=== PATIENT | male | born 1955 | race Caucasian/White ===

== ENCOUNTER 2021-07-03 10:48 | Outpatient (REF) | payer BC, SELFPAY ==
[2021-07-03 10:57] LABS: MANUAL DIFF FLAG NO
[2021-07-03 11:18] LABS: Basophils Percent Auto 0.8 % (0-2); Eosinophils Absolute Auto 0.1 X10*3/uL (0.0-0.4); Eosinophils Percent Auto 1.9 % (0-4); Hematocrit 40.1 % (42.0-52.0); Hemoglobin 13.6 g/dl (14.0-18.0); Imm Gran Abs Auto 0.01 X10*3/uL (0.00-0.03); Imm Gran Pct Auto 0.2 % (0.0-0.4); Lymphocytes Absolute Auto 1.5 X10*3/uL (1.2-4.9); Lymphocytes Percent Auto 32.3 % (20-40); Mean Corpuscular HGB Conc 33.9 g/dl (31.0-36.0); Mean Corpuscular Hemoglobin 30.2 pg (27.0-33.0); Mean Corpuscular Volume 89.1 fL (80.0-98.0); Mean Platelet Volume 10.6 fL (9.4-12.4); Monocytes Absolute Auto 0.3 X10*3/uL (0.1-1.2); Monocytes Percent Auto 7.2 % (2-11); Neutrophils Absolute Auto 2.7 x10*3/uL (2.0-8.3); Neutrophils Percent Auto 57.6 % (45-73); Platelet Count 156 X10*3/uL (160-400); Red Cell Distribution Width 13.3 % (11.0-16.0); White Blood Count 4.7 X10*3/uL (4.8-10.8)
[2021-07-03 11:24] LABS: Appearance Urine CLEAR; Color Urine YELLOW; Glucose Urine UA NEG (NEG); Leukocyte Esterase Urine NEG (NEG); Nitrite Urine NEG (NEG); Urine Blood NEG (NEG); Urine Ketones NEG (NEG); Urine Protein NEG (NEG-TRACE)
[2021-07-03 11:32] LABS: Estimated Average Glucose 105 mg/dL; Hemoglobin A1c % 5.3 %
[2021-07-03 11:41] LABS: Alanine Aminotransferase 71 U/L (0-40); Albumin Level 4.2 g/dL (3.5-5.0); Alkaline Phosphatase 69 U/L (39-117); Anion Gap 11 (12-20); Aspartate Amino Transferase 39 U/L (5-37); Bilirubin Total 0.8 mg/dL (0.0-1.0); Blood Urea Nitrogen 14 mg/dL (9-16); Carbon Dioxide 28 mmol/L (22-29); Chloride 105 mmol/L (96-108); Cholesterol 192 mg/dL; Estimated Glomerular Filt Rate > 60; Glucose Fasting 107 mg/dL (60-99); HDL Cholesterol 36 mg/dL; Potassium 3.9 mmol/L (3.3-5.1); Sodium 140 mmol/L (135-145); Total Protein 6.8 g/dL (6.5-8.0); Triglycerides 571 mg/dL
[2021-07-03 11:52] LABS: Creatinine Urine 83.36 mg/dL; Microalbum/Creatinine Ratio Ur 5.9 ug/mg cr
[2021-07-03 12:51] LABS: Reflex LDLD? Yes
[2021-07-05 04:01] LABS: LDL Cholesterol Direct 96 mg/dL (<100)
== END 2021-07-03 10:49 | disposition home or self-care (01) ==
LOC: HO.LNP 10:48
PROVIDERS: PCP Internal Medicine; Visit Provider Internal Medicine
DX: Z00.00 Encounter for general adult medical examination without abnormal findings (principal); N40.0 Benign prostatic hyperplasia without lower urinary tract symptoms; E78.1 Pure hyperglyceridemia; I10 Essential (primary) hypertension; R73.03 Prediabetes
CPT/HCPCS: 80053; 80061; 81003; 82043; 83036; 83721; 84153; 84154; 85025

== ENCOUNTER 2021-07-31 09:23 | Outpatient (REF) | payer BC, SELFPAY ==
[2021-08-01 14:13] LABS: H Pylori Breath Test Positive (Negative)
== END 2021-07-31 09:24 | disposition home or self-care (01) ==
LOC: HO.LAB 09:23
PROVIDERS: PCP Internal Medicine; Referring Provider Internal Medicine; Visit Provider Nurse Practitioner Family
DX: K21.9 Gastro-esophageal reflux disease without esophagitis (principal); R13.10 Dysphagia, unspecified; K59.00 Constipation, unspecified; Z12.11 Encounter for screening for malignant neoplasm of colon; Z11.0 Encounter for screening for intestinal infectious diseases; Z79.899 Other long term (current) drug therapy; Z87.891 Personal history of nicotine dependence
CPT/HCPCS: 36415; 83013

== ENCOUNTER 2021-08-31 07:16 | Day surgery (SDC) | payer BC, SELFPAY ==
[2021-08-25 13:05] VITALS: BMI 31.8
--- NOTE | 2021-08-30 09:49 | HO.ANESPROP2 ---
Documented by User: Martha Hsieh NP 08/30/21 09:52 HPI - Anesthesia Eval Consult details Narrative: 66yo M for Upper Endoscopy and Colonoscopy [facility] Past Medical History Medical History (Updated 08/25/21 @ 13:05 by Cynthia Booth, AMY) GERD (gastroesophageal reflux disease) Helicobacter pylori (H. pylori) HTN (hypertension) Surgical History Surgical History (Updated 07/31/21 @ 09:32 by Bev Alvarado) Hx of colonoscopy Hx of esophagogastroduodenoscopy Social History Social History (Updated 07/31/21 @ 09:32 by Bev Alvarado) Alcohol intake: former Patient Tobacco Use Status: Former Tobacco user Tobacco use type: Cigarette Meds Allergies Allergy/AdvReac Type Severity Reaction Status Date / Time No Known Allergies Allergy Verified 08/31/21 07:39 [No Known Allergies*] Home Medications Medication Instructions Recorded Confirmed Last Taken Type metoprolol succinate 50 mg 50 mg PO DAILY 07/31/21 07/31/21 Unknown History tablet,extended release 24 hr tamsulosin 0.4 mg capsule 0.4 mg PO BEDTIME 07/31/21 07/31/21 Unknown History Exam Exam Date and Time: August 30, 2021 0949 Height,Weight and Vital Signs: Height 5 ft 9 in Weight 97.976 kg Pertinent Lab Results Pertinent Lab Results: Laboratory Tests 07/03/21 07/03/21 07:50 07:50 WBC 4.7 L Hgb 13.6 L Hct 40.1 L Plt Count 156 L Sodium 140 Potassium 3.9 Chloride 105 Carbon Dioxide 28 BUN 14 Creatinine 0.82 Assessment and Plan Assessment Anesthesia Assessment: Chart Reviewed Documented by User: Cassius Rodriguez MD 08/31/21 11:53 [facility] Past Medical History Medical History (Updated 08/25/21 @ 13:05 by Cynthia Booth RN) GERD (gastroesophageal reflux disease) Helicobacter pylori (H. pylori) HTN (hypertension) Family History Family history of problems with anesthesia: No Surgical History Surgical History (Updated 07/31/21 @ 09:32 by Bev Alvarado) Hx of colonoscopy Hx of esophagogastroduodenoscopy History of Problems with Anesthesia: No Social History Social History (Updated 07/31/21 @ 09:32 by Bev Alvarado) Alcohol intake: former Patient Tobacco Use Status: Former Tobacco user Tobacco use type: Cigarette Meds Allergies Allergy/AdvReac Type Severity Reaction Status Date / Time No Known Allergies Allergy Verified 08/31/21 07:39 [No Known Allergies*] Home Medications Medication Instructions Recorded Confirmed Last Taken Type metoprolol succinate 50 mg 50 mg PO DAILY 07/31/21 07/31/21 Unknown History tablet,extended release 24 hr tamsulosin 0.4 mg capsule 0.4 mg PO BEDTIME 07/31/21 07/31/21 Unknown History Exam Airway Mallampati Class: III TM Dist: >3cm Neck ROM: Full Loose/Missing/Broken Teeth: Yes (Chipped , poor dentation ) Heart: rrr Lungs: bl breath sounds Assessment and Plan Assessment Anesthesia Assessment: Anesthesia Plan Discussed Final Anesthetic Review Family History of Problems with Anesthesia: No History of Problems with Anesthesia: No NPO: Yes ASA Class: II Final Preanesthetic Review: Meds/Allgs Chart Reviewed, Consent Obtained/Reviewed and Anes Risks/Benef Reviewed Patient Risk: Intermediate Procedure Risk: Intermediate Anesthetic Plan Anesthetic Plan: MAC: Disposition: Standard PACU
[2021-08-31 07:42] VITALS: BMI 28.1
[2021-08-31 07:45] VITALS: BP 160/60; PULSE 64; RESP 16; TEMP 36.7; O2SAT 97
[2021-08-31] MEDS: Lactated Ringers 1,000 ML 100 ML IVCONT (08:32)
--- NOTE | 2021-08-31 08:53 | P.HPSUR_ITS ---
Pre-Procedural Eval Section A Date of Service: 08/31/21 Section B Chief Complaint: Screening, GERD Relevant Family History (Specify if Yes): No Relevant Social History: None (ex smoker) Present Medications: see Short Stay Collaborative assessment Medical History: Significant History (GERD (gastroesophageal reflux disease) Helicobacter pylori (H. pylori) HTN (hypertension)) History of Previous Operations: Relevant previous surgery/procedure and date(s) (EGD,colonoscopy) Allergies: Allergies Allergy/AdvReac Type Severity Reaction Status Date / Time No Known Allergies Allergy Verified 08/31/21 07:39 [No Known Allergies*] Review of Systems Sugical H&P ROS: Negative: Constitution, Cardiovascular, Respiratory, Neurological, Psychiatric, Hem-Onc, Allergic/Immunologic, Gastrointestinal, Genitourinary, Musculoskeletal, Integumentary, Endocrine and Ey es/Ears/Nose/Throat Exam Surgical H&P Exam: Normal: HEENT, Normal: Heart, Normal: Lungs, Normal: Extremities, Normal: Abdomen, Normal: Skin and Normal: Neurological Plan Diagnosis/Plan: Unchanged I have reviewed the history and physical and performed a pertinent physical examination on my patient. No changes have occurred unless specified.
--- NOTE | 2021-08-31 08:54 | P.OP_ITS ---
Operative Note Operative Note Date of Service: 08/31/21 Narrative: Operative Information Procedure Description: EGD, Colonoscopy FLEXIBLE TRANSORAL UPPER GASTROINTESTINAL ENDOSCOPY AND COLONOSCOPY PROCEDURE NOTE UPPER ENDOSCOPY Consent: Indications for the procedure and potential complications of bleeding, perforation, reaction to medications and missed diagnosis were discussed with the patient and informed consent was obtained. Instrument: Olympus GIF H 190 J mid size upper endoscope Monitoring: Vital signs and clinical assessment, continuous EKG monitoring, Pulse oximetry, Carbon Dioxide monitoring and blood pressure monitoring were done throughout the procedure. Procedure: The patient was placed in the left lateral decubitis position and pre-procedure medications were administered and a bite block was placed. The endoscope was inserted into the mouth and advanced under direct vision to the third part of duodenum. A careful inspection was made as the upper endoscope was withdrawn including a retroflexed examination of the proximal stomach; Findings and interventions are described below. Findings: Larynx:normal Esophagus: GE junction at 40 cm, diaphragm hiatus at 40 cm, esophagitis with small linear erosion seen, bx taken from GEJ and random esophagus, also slightly nodular area in proximal esophagus, about 35 cm, bx taken. there was 1 10 mm inlet patch at proximal esophagus Stomach: Patchy erythema. Biopsies were obtained. Grade 2 flap valve on retroflexed examination of the cardia. 8-9 mm sessile polyp just above the pyloric outlet, removed with cold snare, also inflammed 8-9 mm sessile polyp in fundus removed with cold snare Duodenum: mild duodenitis , bx taken Intervention: Biopsies as noted above COLONOSCOPY Instrument: Olympus variable stiffness adult scope 190L Colonoscopy Monitoring: Vital signs and clinical assessment, continuous EKG monitoring, Pulse oximetry, Carbon Dioxide monitoring and blood pressure monitoring were done throughout the procedure. Colon withdrawal time was 14 minutes. Procedure: The patient was placed in the left lateral decubitis position and pre-procedure medications were administered. After a digital rectal examination of the ano-rectum, the video colonoscope was inserted into the rectum and advanced through the colon to the cecum/TI. The colonoscope was slowly withdrawn in a retrograde panoramic fashion and the colon mucosa was carefully examined including a retroflexed view of the rectum. Findings and interventions are described below. Procedure Difficulty: moderate due to looping Findings: Terminal Ileum-superficially intubated and normal Cecum:normal Ascending Colon: normal Transverse Colon -normal Descending Colon:normal Sigmoid Colon: patchy diverticulosis, mild. 9-10 mm x2 sessile polyps removed with forceps Rectum: Retroflexion with small internal hemorrhoids, grade II, 9-10 mm sessile polyp removed with cold snare Anorectum - internal hemorrhoids seen at anal verge Colon preparation: Alvo Bowel Preparation Scale Right colon; 2 Transverse colon: 2 Left colon; 2 (0 = Unprepared colon segment with mucosa not seen due to solid stool that cannot be cleared. 1 = Portion of mucosa of the colon segment seen, but other areas of the colon segment not well seen due to staining, residual stool and/or opaque liquid. 2 = Minor amount of residual staining, small fragments of stool and/or opaque liquid, but mucosa of colon segment seen well. 3 = Entire mucosa of colon segment seen well with no residual staining, small fragments of stool or opaque liquid) Impression and Post Procedure Diagnosis: Endoscopy Findings: erosive esophagitis gastritis gastric polyps duodenitis inlet patch Colonoscopy Findings: polyps internal hemorrhoids diverticular disease Plan: Await Pathology results Repeat Colonoscopy in 5 years due to polyps or earlier if clinically indicated High fiber diet leaflet avoid straining at stool, epsom salts and sitz bath, anusol supps or cream if H pylori pos then re treat, otherwise may benefit from tank terminal gauger low dose PPI Above findings were reviewed with the patient and relevant handouts were provided if indicated.
--- NOTE | 2021-08-31 08:54 | PM.OP ---
Brief Operative Note Date of Service: 08/31/21 Pre-op diagnosis: GERD, H pylori, colon screening Post-op diagnosis: same Procedure: see op note Surgeon: Mohini Burgess MD Anesthesia: MAC Was an Internal Auditor used for this Procedure?: No Estimated blood loss (mL): 0 Condition: stable Disposition: PACU
[2021-08-31 09:52] VITALS: BP 107/57; PULSE 69; RESP 15; TEMP 36.2; O2SAT 99
[2021-08-31 10:07] VITALS: BP 126/68; PULSE 69; RESP 16; TEMP 36.2; O2SAT 97
== END 2021-08-31 11:00 | disposition home or self-care (01) ==
PROVIDERS: PCP Internal Medicine; Visit Provider Internal Medicine Gastroenterology
PROC: (CPT 45385; principal; 2021-08-31 08:50)
DX: Z12.11 Encounter for screening for malignant neoplasm of colon (principal); D12.5 Benign neoplasm of sigmoid colon; D12.8 Benign neoplasm of rectum; K57.30 Diverticulosis of large intestine without perforation or abscess without bleeding; K64.1 Second degree hemorrhoids; K21.9 Gastro-esophageal reflux disease without esophagitis; K20.80 Other esophagitis without bleeding; K29.80 Duodenitis without bleeding; K29.50 Unspecified chronic gastritis without bleeding; K31.7 Polyp of stomach and duodenum; K44.9 Diaphragmatic hernia without obstruction or gangrene; Q39.8 Other congenital malformations of esophagus
CPT/HCPCS: 45385; 45380; 43251; 43239; 88305; 88342

== ENCOUNTER 2021-09-27 09:29 | Outpatient (REF) | payer BC, SELFPAY ==
[2021-09-28 15:08] LABS: H Pylori Breath Test Negative (Negative)
== END 2021-09-27 09:30 | disposition home or self-care (01) ==
LOC: HO.LAB 09:29
PROVIDERS: PCP Internal Medicine; Referring Provider Internal Medicine; Visit Provider Internal Medicine Gastroenterology
DX: K21.9 Gastro-esophageal reflux disease without esophagitis (principal); Z11.0 Encounter for screening for intestinal infectious diseases
CPT/HCPCS: 36415; 83013

== ENCOUNTER 2022-04-09 11:08 | Outpatient (REF) | payer BC, SELFPAY ==
[2022-04-09 11:51] LABS: Alanine Aminotransferase 49 U/L (0-40); Albumin Level 4.3 g/dL (3.5-5.0); Alkaline Phosphatase 70 U/L (39-117); Aspartate Amino Transferase 27 U/L (5-37); Bilirubin Direct 0.2 mg/dL (0.0-0.5); Bilirubin Total 0.6 mg/dL (0.0-1.0); Total Protein 6.7 g/dL (6.5-8.0)
== END 2022-04-09 11:09 | disposition home or self-care (01) ==
LOC: HO.LNP 11:08
PROVIDERS: Visit Provider Internal Medicine
DX: R94.5 Abnormal results of liver function studies (principal)
CPT/HCPCS: 80076

== ENCOUNTER 2022-09-27 11:15 | Outpatient (REF) | payer MEDICARE, SELFPAY ==
[2022-09-27 11:22] LABS: MANUAL DIFF FLAG NO
[2022-09-27 12:48] LABS: Eosinophils Absolute Auto 0.1 X10*3/uL (0.0-0.4); Eosinophils Percent Auto 2.9 % (0-4); Hematocrit 41.9 % (42.0-52.0); Imm Gran Abs Auto 0.01 X10*3/uL (0.00-0.03); Imm Gran Pct Auto 0.2 % (0.0-0.4); Lymphocytes Absolute Auto 1.5 X10*3/uL (1.2-4.9); Lymphocytes Percent Auto 34.5 % (20-40); Mean Corpuscular HGB Conc 33.4 g/dl (31.0-36.0); Mean Corpuscular Hemoglobin 29.8 pg (27.0-33.0); Mean Corpuscular Volume 89.1 fL (80.0-98.0); Mean Platelet Volume 10.7 fL (9.4-12.4); Monocytes Absolute Auto 0.4 X10*3/uL (0.1-1.2); Monocytes Percent Auto 8.8 % (2-11); Neutrophils Absolute Auto 2.2 x10*3/uL (2.0-8.3); Neutrophils Percent Auto 52.6 % (45-73); Platelet Count 158 X10*3/uL (160-400); Red Cell Distribution Width 13.4 % (11.0-16.0); White Blood Count 4.2 X10*3/uL (4.8-10.8)
[2022-09-27 12:52] LABS: Appearance Urine Clear; Color Urine Yellow; Glucose Urine UA Negative (Negative); Leukocyte Esterase Urine Negative (Negative); Nitrite Urine Negative (Negative); Specific Gravity - Urine >= 1.030 (1.005-1.025); Urine Blood Negative (Negative); Urine Ketones Negative (Negative); Urine Protein Negative (Neg-Trace)
[2022-09-27 12:55] LABS: Bacteria Urine None Seen (None Seen); Hyaline Casts Urine 0-2 /LPF (0-2); RBC Urine 0-2 /HPF (0-2); Squamous Epithelial Cell Urine 0-2 /HPF (0-2); WBC Urine 0-5 /HPF (0-5)
[2022-09-27 12:59] LABS: Estimated Average Glucose 100 mg/dL; Hemoglobin A1c % 5.1 %
[2022-09-27 13:39] LABS: Creatinine Urine 200.84 mg/dL; Microalbum/Creatinine Ratio Ur 4.9 ug/mg cr
[2022-09-27 13:58] LABS: Alanine Aminotransferase 40 U/L (0-40); Albumin Level 4.3 g/dL (3.5-5.0); Alkaline Phosphatase 62 U/L (39-117); Anion Gap 10 (12-20); Aspartate Amino Transferase 23 U/L (5-37); Blood Urea Nitrogen 20 mg/dL (9-16); Calcium 8.8 mg/dL (8.4-10.2); Carbon Dioxide 30 mmol/L (22-29); Chloride 107 mmol/L (96-108); Cholesterol 180 mg/dL; Estimated Glomerular Filt Rate > 60; Glucose Fasting 112 mg/dL (60-99); HDL Cholesterol 41 mg/dL; LDL Cholesterol Calculated 109 mg/dl; Potassium 4.3 mmol/L (3.3-5.1); Sodium 143 mmol/L (135-145); Total Protein 6.4 g/dL (6.5-8.0); Triglycerides 151 mg/dL
[2022-09-27 14:05] LABS: PSA,Total (Free>4and<10) 0.92 ng/mL (0.00-4.00)
== END 2022-09-27 11:16 | disposition home or self-care (01) ==
LOC: HO.LNP 11:15
PROVIDERS: Visit Provider Internal Medicine
DX: Z00.00 Encounter for general adult medical examination without abnormal findings (principal); I10 Essential (primary) hypertension; D70.9 Neutropenia, unspecified; R73.03 Prediabetes; E87.1 Hypo-osmolality and hyponatremia; N40.0 Benign prostatic hyperplasia without lower urinary tract symptoms; K21.9 Gastro-esophageal reflux disease without esophagitis; Z12.5 Encounter for screening for malignant neoplasm of prostate
CPT/HCPCS: 80053; 80061; 81001; 82043; 83036; 84153; 85025

== ENCOUNTER → 2022-10-10 07:56 | Outpatient (REF) | payer MEDICARE, BC, SELFPAY ==
--- NOTE | 2022-10-10 08:00 | CA_ITS ---
Transthoracic Echocardiogram Patient (Last, First, Middle): Tyshawn Langford M Gender: Male Date of : 1955 Age: 67 Procedure Date: 10/10/2022 Procedure Type: Transthoracic Echocardiogram Location: OP Height: 167.64 cm Weight: 81.65 kg BSA: 1.91 m2 Heart Rate: 54 bpm BP: 130 / 68 mmHg Operator/Assistant Foreman: SB Referring MD: Asim Kim MD Symptoms: R01.1 [place] Study Quality: Adequate ECG Rhythm: Bradycardia Conclusions: - The left ventricular systolic function is normal. The calculated ejection fraction is 61% by biplane method. - There is mild aortic valve stenosis. - Small plaque is seen in the sinuses of Valsalva. Findings Left Ventricle Normal left ventricular cavity size. The left ventricular systolic function is normal. The calculated ejection fraction is 61% by biplane method. There is no evidence of regional wall motion abnormalities. Diastolic function is normal for age. There is mild septal asymmetric hypertrophy. LV peak GLS 19.5%. Right Ventricle Normal right ventricular cavity size and systolic function. Atria Both atria are normal in size. Aortic Valve There is moderate calcification of the aortic valve. There is mild aortic valve stenosis. There is no aortic valve regurgitation. Mitral Valve There is mild mitral annular calcification. There is trace mitral valve regurgitation. There is no mitral valve stenosis. Pulmonic Valve The pulmonic valve is likely normal. Tricuspid Valve Normal tricuspid valve structure. There is no tricuspid valve regurgitation. There is no evidence of pulmonary hypertension. Great Vessels The asc aorta and aortic arch are normal in size. Small plaque is seen in the sinuses of Valsalva. Venous The inferior vena cava is normal in size and collapses greater than 50% with inspiration. Pericardium/Pleural There is no evidence of pericardial effusion. Prior Study Comparison No prior study available for comparison. Measurements 2D Linear Measurements IVSd: 1.22 0.6-0.9/0.6-1.0 cm LVIDd: 4.99 3.9-5.3/4.2-5.9 cm LVIDd Index: 2.61 2.4-3.2/2.2-3.1 cm/m2 LVIDs: 2.89 2.0-3.6 cm LVPWd: 0.91 0.7-1.1 cm LA Diam: 4.10 2.7-3.8/3.0-4.0 cm LAIDs Index: 2.15 1.5-2.3 cm/m2 LV Mass: 245.53 67-162/88-224 g LV Mass Index: 128.55 43-95/49-115 g/m2 LVOT Diam: 2.20 3.0+(-)1.3 cm 2D Systolic Function EF 4C: 61.60 >55% EF 2C: 57.80 >55% EF BiP: 60.90 >55% Mitral Valve MV Pk E: 1.03 MV PK A: 0.93 MV Decel Time: 269.00 E/A: 1.10 E'Lateral: 10.60 E'Medial: 7.07 E/E' Med: 14.60 E/E' Lat: 9.70 PHT: 79.00 MVA PHT: 2.78 Decel [place]: 3.82 Aortic Valve AoV Pk Richard: 2.35 AoV Mn Richard: 1.54 AoV VTI: 0.46 AoV Pk Grad: 22.00 Aov Mn Grad: 11.00 JANEL Cont.VTI: 1.91 LVOT LVOT Pk Richard: 1.17 LVOT Mn Richard: 0.72 LVOT VTI: 0.23 LVOT Pk Grad: 5.00 LVOT Mn Grad: 3.00 LVOT Diam: 2.20 LVOT Area: 3.80 Diastolic Function MV Pk E: 1.03 MV Pk A: 0.93 E/A: 1.10 E'Medial: 7.07 E/E' Med: 14.60 E' Laterial: 10.60 E/E' Lat: 9.70 Right Ventricle TAPSE (mm): 23.50 TVS' Richard: 13.50 Tricuspid Valve TR Pk Richard: 2.47 TR Pk Grad: 24.00 RA Press: 3.00 RVSP: 27.00 Great Vessels Aorta Sinus of Valsalva: 3.20 2.0-3.5 cm Ao Asc: 3.10 2.1-3.4 cm Ao Arch: 2.60 Pulmonary Veins Pulm Vein S/D 1.20 Pulmonary Valve PV Pk Richard: 1.30 Peak PV Grad: 7.00 Updated in Other Vendor System with Status of Final Deondre Branch MD electronically signed on 10/11/2022 11:36:03 AM with status of Final
== END ==
LOC: HO.CARD 07:56
PROVIDERS: PCP Internal Medicine; Visit Provider Internal Medicine
DX: R01.1 Cardiac murmur, unspecified (principal)
CPT/HCPCS: 93306; 93356

== ENCOUNTER 2023-02-28 17:31 | Outpatient (REF) | payer MEDICARE, BC, SELFPAY ==
[2023-02-28 17:56] LABS: Alanine Aminotransferase 30 U/L (0-40); Albumin Level 4.4 g/dL (3.5-5.0); Alkaline Phosphatase 66 U/L (39-117); Aspartate Amino Transferase 26 U/L (5-37); Bilirubin Direct 0.3 mg/dL (0.0-0.5); Bilirubin Total 0.7 mg/dL (0.0-1.0); Total Protein 6.9 g/dL (6.5-8.0)
== END 2023-02-28 17:32 | disposition home or self-care (01) ==
LOC: HO.LNP 17:31
PROVIDERS: Visit Provider Internal Medicine
DX: R79.89 Other specified abnormal findings of blood chemistry (principal)
CPT/HCPCS: 80076

== ENCOUNTER 2023-04-11 11:13 | Outpatient (REF) | payer MEDICARE, BC, SELFPAY ==
[2023-04-11 12:27] LABS: Alanine Aminotransferase 23 U/L (0-40); Albumin Level 4.2 g/dL (3.5-5.0); Alkaline Phosphatase 57 U/L (39-117); Aspartate Amino Transferase 20 U/L (5-37); Bilirubin Direct 0.2 mg/dL (0.0-0.5); Bilirubin Total 0.6 mg/dL (0.0-1.0); Total Protein 6.7 g/dL (6.5-8.0)
== END 2023-04-11 11:14 | disposition home or self-care (01) ==
LOC: HO.10HDLNP 11:13
PROVIDERS: Visit Provider Internal Medicine
DX: R79.89 Other specified abnormal findings of blood chemistry (principal)
CPT/HCPCS: 80076

== ENCOUNTER 2023-10-03 11:28 | Outpatient (REF) | payer MEDICARE, BC, SELFPAY ==
[2023-10-03 11:32] LABS: MANUAL DIFF FLAG NO
[2023-10-03 11:53] LABS: Basophils Percent Auto 0.7 % (0-2); Eosinophils Absolute Auto 0.1 X10*3/uL (0.0-0.4); Eosinophils Percent Auto 3.2 % (0-4); Hematocrit 41.8 % (42.0-52.0); Hemoglobin 14.4 g/dl (14.0-18.0); Imm Gran Abs Auto 0.01 X10*3/uL (0.00-0.03); Imm Gran Pct Auto 0.2 % (0.0-0.4); Lymphocytes Absolute Auto 1.4 X10*3/uL (1.2-4.9); Lymphocytes Percent Auto 31.3 % (20-40); Mean Corpuscular HGB Conc 34.4 g/dl (31.0-36.0); Mean Corpuscular Hemoglobin 30.6 pg (27.0-33.0); Mean Corpuscular Volume 88.7 fL (80.0-98.0); Mean Platelet Volume 10.7 fL (9.4-12.4); Monocytes Absolute Auto 0.4 X10*3/uL (0.1-1.2); Monocytes Percent Auto 8.8 % (2-11); Neutrophils Absolute Auto 2.5 x10*3/uL (2.0-8.3); Neutrophils Percent Auto 55.8 % (45-73); Platelet Count 137 X10*3/uL (160-400); Red Blood Count 4.71 X10*6/uL (4.60-5.80); Red Cell Distribution Width 13.4 % (11.0-16.0); White Blood Count 4.4 X10*3/uL (4.8-10.8)
[2023-10-03 11:56] LABS: Appearance Urine Clear; Color Urine Yellow; Glucose Urine UA Negative (Negative); Leukocyte Esterase Urine Negative (Negative); Nitrite Urine Negative (Negative); PH 5.5 (5.0-9.0); Specific Gravity - Urine 1.025 (1.005-1.025); Urine Blood Negative (Negative); Urine Ketones Negative (Negative); Urine Protein Negative (Neg-Trace)
[2023-10-03 12:00] LABS: Bacteria Urine None Seen (None Seen); Hyaline Casts Urine 0-2 /LPF (0-2); RBC Urine 0-2 /HPF (0-2); Squamous Epithelial Cell Urine 0-2 /HPF (0-2); WBC Urine 0-5 /HPF (0-5)
[2023-10-03 12:12] LABS: Alanine Aminotransferase 30 U/L (0-40); Albumin Level 4.3 g/dL (3.5-5.0); Alkaline Phosphatase 64 U/L (39-117); Anion Gap 13 (12-20); Aspartate Amino Transferase 25 U/L (5-37); Bilirubin Total 0.7 mg/dL (0.0-1.0); Blood Urea Nitrogen 21 mg/dL (9-16); Calcium 9.2 mg/dL (8.4-10.2); Carbon Dioxide 28 mmol/L (22-29); Chloride 107 mmol/L (96-108); Cholesterol 191 mg/dL (<200); Estimated Glomerular Filt Rate > 60; Glucose Fasting 122 mg/dL (60-99); HDL Cholesterol 43 mg/dL (>40); LDL Cholesterol Calculated 99 mg/dL (<100); Potassium 4.3 mmol/L (3.3-5.1); Sodium 144 mmol/L (135-145); Total Protein 6.9 g/dL (6.5-8.0); Triglycerides 245 mg/dL (<150)
[2023-10-03 12:28] LABS: PSA,Total (Free>4and<10) 1.02 ng/mL (0.00-4.00)
== END 2023-10-03 11:29 | disposition home or self-care (01) ==
LOC: HO.LNP 11:28
PROVIDERS: Visit Provider Internal Medicine
DX: Z12.5 Encounter for screening for malignant neoplasm of prostate (principal); E78.1 Pure hyperglyceridemia; N40.0 Benign prostatic hyperplasia without lower urinary tract symptoms; I10 Essential (primary) hypertension; D69.6 Thrombocytopenia, unspecified
CPT/HCPCS: 80053; 80061; 81001; 84153; 85025

== ENCOUNTER 2024-01-07 07:39 | Outpatient (REF) | payer MEDICARE, SELFPAY ==
[2024-01-07 08:34] LABS: Blood Urea Nitrogen 18 mg/dL (9-16); Estimated Glomerular Filt Rate > 60
== END 2024-01-07 07:40 | disposition home or self-care (01) ==
LOC: HO.LAB 07:39
PROVIDERS: PCP Internal Medicine; Visit Provider Internal Medicine
DX: Z01.812 Encounter for preprocedural laboratory examination (principal)
CPT/HCPCS: 36415; 82565; 84520

== ENCOUNTER 2024-04-03 10:34 | Outpatient (REF) | payer MEDICARE, SELFPAY ==
[2024-04-03 11:42] LABS: Estimated Average Glucose 97 mg/dL
[2024-04-03 12:00] LABS: Alanine Aminotransferase 37 U/L (0-40); Albumin Level 4.3 g/dL (3.5-5.0); Alkaline Phosphatase 65 U/L (39-117); Aspartate Amino Transferase 26 U/L (5-37); Bilirubin Direct 0.4 mg/dL (0.0-0.5); Bilirubin Total 1.1 mg/dL (0.0-1.0); Cholesterol 117 mg/dL (<200); Glucose Fasting 143 mg/dL (60-99); HDL Cholesterol 51 mg/dL (>40); LDL Cholesterol Calculated 45 mg/dL (<100); Total Protein 6.8 g/dL (6.5-8.0); Triglycerides 107 mg/dL (<150)
[2024-04-03 12:14] LABS: Reflex LDLD? No
== END 2024-04-03 10:35 | disposition home or self-care (01) ==
LOC: HO.LNP 10:34
PROVIDERS: Visit Provider Internal Medicine
DX: R73.03 Prediabetes (principal)
CPT/HCPCS: 80061; 80076; 82947; 83036

== ENCOUNTER 2024-10-05 10:44 | Outpatient (REF) | payer MEDICARE, SELFPAY ==
[2024-10-05 10:47] LABS: MANUAL DIFF FLAG NO
[2024-10-05 11:20] LABS: Appearance Urine Clear; Basophils Percent Auto 0.9 % (0-2); Color Urine Yellow; Eosinophils Absolute Auto 0.1 X10*3/uL (0.0-0.4); Eosinophils Percent Auto 3.1 % (0-4); Glucose Urine UA Negative (Negative); Hematocrit 43.6 % (42.0-52.0); Hemoglobin 14.8 g/dl (14.0-18.0); Imm Gran Abs Auto 0.01 X10*3/uL (0.00-0.03); Imm Gran Pct Auto 0.2 % (0.0-0.4); Leukocyte Esterase Urine Negative (Negative); Lymphocytes Absolute Auto 1.4 X10*3/uL (1.2-4.9); Lymphocytes Percent Auto 31.5 % (20-40); Mean Corpuscular HGB Conc 33.9 g/dl (31.0-36.0); Mean Corpuscular Volume 88.3 fL (80.0-98.0); Mean Platelet Volume 10.7 fL (9.4-12.4); Monocytes Absolute Auto 0.4 X10*3/uL (0.1-1.2); Monocytes Percent Auto 8.3 % (2-11); Neutrophils Absolute Auto 2.5 x10*3/uL (2.0-8.3); Nitrite Urine Negative (Negative); PH 5.5 (5.0-9.0); Platelet Count 141 X10*3/uL (160-400); Red Blood Count 4.94 X10*6/uL (4.60-5.80); Red Cell Distribution Width 13.4 % (11.0-16.0); Urine Blood Negative (Negative); Urine Ketones Negative (Negative); Urine Protein Negative (Neg-Trace); White Blood Count 4.5 X10*3/uL (4.8-10.8)
[2024-10-05 11:29] LABS: Bacteria Urine None Seen (None Seen); Hyaline Casts Urine 0-2 /LPF (0-2); RBC Urine 0-2 /HPF (0-2); Squamous Epithelial Cell Urine 0-2 /HPF (0-2); WBC Urine 0-5 /HPF (0-5)
[2024-10-05 11:33] LABS: Estimated Average Glucose 103 mg/dL; Hemoglobin A1c % 5.2 % (<6.0)
[2024-10-05 11:34] LABS: Alanine Aminotransferase 52 U/L (0-40); Albumin Level 4.4 g/dL (3.5-5.0); Alkaline Phosphatase 70 U/L (39-117); Anion Gap 10 (12-20); Aspartate Amino Transferase 35 U/L (5-37); Bilirubin Total 1.2 mg/dL (0.0-1.0); Blood Urea Nitrogen 15 mg/dL (9-16); Calcium 9.3 mg/dL (8.4-10.2); Carbon Dioxide 26 mmol/L (22-29); Chloride 108 mmol/L (96-108); Cholesterol 129 mg/dL (<200); Estimated Glomerular Filt Rate > 60; Glucose Fasting 121 mg/dL (60-99); HDL Cholesterol 47 mg/dL (>40); LDL Cholesterol Calculated 47 mg/dL (<100); Sodium 140 mmol/L (135-145); Total Protein 6.7 g/dL (6.5-8.0); Triglycerides 179 mg/dL (<150)
[2024-10-05 11:54] LABS: PSA,Total (Free>4and<10) 1.16 ng/mL (0.00-4.00)
[2024-10-05 12:31] LABS: Creatinine Urine 115.06 mg/dL; Microalbum/Creatinine Ratio Ur 4.3 ug/mg cr (<30)
== END 2024-10-05 10:45 | disposition home or self-care (01) ==
LOC: HO.LNP 10:44
PROVIDERS: Visit Provider Internal Medicine
DX: N40.0 Benign prostatic hyperplasia without lower urinary tract symptoms (principal); I10 Essential (primary) hypertension; R73.03 Prediabetes; Z12.5 Encounter for screening for malignant neoplasm of prostate
CPT/HCPCS: 80053; 80061; 81001; 82043; 82570; 83036; 84153; 85025

== ENCOUNTER 2024-11-05 13:47 | Outpatient (REF) | payer MEDICARE, SELFPAY ==
--- NOTE | ~2024-11-05 | US_ITS ---
EXAMINATION: BILATERAL CAROTID ULTRASOUND WITH DOPPLER HISTORY: CAROTID BRUIT COMPARISON: There are no prior studies for comparison. TECHNIQUE: Real time and Color and Spectral doppler ultrasonography of the carotid and vertebral arteries was performed in multiple planes. FINDINGS: No significant plaque is seen in the right internal carotid artery. There is mild plaque on the left. VERTEBRAL FLOW DIRECTION: Antegrade bilaterally. PEAK SYSTOLIC VELOCITIES (in cm/sec): RIGHT: CCA: Prox: 108 Dist: 92 ICA: Prox: 79 Mid: 69 Dist: 67 ICA/CCA Ratio: 0.73 ECA: 153 Peak ICA EDV: 29 LEFT: CCA: Prox: 109 Dist: 90 ICA: Prox: 152 Mid: 144 Dist: 96 ICA/CCA Ratio: 1.39 ECA: 109 Peak ICA EDV: 52 US/US carotid duplex BI IMPRESSION: 1. Unremarkable ultrasound appearance of the right carotid artery. 2. Findings consistent with 50-79% stenosis of the left internal carotid artery. Electronically signed by: Armen Enciso MD 11/06/2024 01:45 PM EDT
--- OUTSIDE RECORDS SUMMARY | 2024-11-05 16:11 | XMS_ITS | Clinical Summary ---
Author Organization [facility] ity Address [address] [place] [address] Care Team Providers Care Mop Worker Name Role Phone Unavailable Primary Care Provider Unavailabl e Social History Tobacco Use Types Packs/Day Years Used Date Smoking Tobacco: Never Assessed Sex and Gender Information Value Date Recorded Sex Assigned at Not on file Legal Sex Male 10:07 AM EST Gender Identity Not on file Sexual Orientation Not on file Plan of Treatment Health Maintenance Due Date Last Done Comments DTaP,Tdap,and Td Vaccines (1 - Tdap) 01/16/1975 Pneumococcal Vaccine: 50+ Ye ars (1 of 1 - PCV) 01/16/2006 Zoster Vaccines (1 of 2) 01/16/2006 COVID-19 Vaccine (1 - 2023-2 5 season) 2024 Influenza Vaccine (Season Ended) 2025 RSV Immunization Adult Patie nts (1 - 1-dose 75+ series) 01/16/2031 HIB Vaccines Aged Out No longer eligi ble based on patient's age to complete this topic HPV Vaccines Aged Out No longer eligi ble based on patient's age to complete this topic Hepatitis A Vaccines Aged Out No long er eligible based on patient's age to complete this topic Hepatitis B Vaccines Aged Out No long er eligible based on patient's age to complete this topic IPV Vaccines Aged Out No longer eligi ble based on patient's age to complete this topic MMR Vaccines Aged Out No longer eligi ble based on patient's age to complete this topic Meningococcal ACWY Vaccine Aged Out N o longer eligible based on patient's age to complete this topic Meningococcal B Vaccine Aged Out No l onger eligible based on patient's age to complete this topic RSV Immunization Patients Un dannielle 20 months Aged Out No longer eligible b ased on patient's age to complete this topic Varicella Vaccines Aged Out No longer eligible based on patient's age to complete this topic
--- OUTSIDE RECORDS SUMMARY | 2024-11-05 16:11 | XMS_ITS | Patient Health Record ---
Author Organization [facility] Address [address] [facility] [place] [address] Care Team Providers Care Jaw Skinner Name Role Phone Asim Kim MD Primary Care Provider Shanda Calderon Unavailable [phone] Reason For Referral No Information Medications Medication SIG (Take, Route, Frequency, Duration) Notes Start Date End Date Status Metoprolol Succinate ER Active Neurontin 300 MG 1 capsule Orally Onc e a day at night for 14 days 06/10/2019 Not-Ricardo ing Ibuprofen 800 MG 1 tablet Orally Thre e times a day for 30 day(s) 06/10/2019 Not-Taking Feldene 20 MG 1 capsule with food Orally Once a day for 30 day(s) 04/28/2019 Not-Taking Physical Therapy . . . 2-3x/week for 3- 4 weeks 07/14/2019 Active Social History Tobacco Use: Social History Observation Description Date Details (start date - stop date) Former Smoker NA - NA Tobacco Use/Smoking Question Answer Notes Are you a: former smoker Additional Findings: Tobacco Non-User Ex-heavy c igarette smoker (20-30/day) Alcohol Screen Question Answer Notes Did you have a drink containing alcohol in the p ast year? No Points 0 Interpretation Negative Tobacco use other than smoking: Question Answer Notes Are you an other tobacco user? No Section Notes: alcohol consumption is rarel y alcohol consumption is rarel y alcohol consumption is rarel y alcohol consumption is rarel y alcohol consumption is rarel y alcohol consumption is rarel y alcohol consumption is rarel y Problems Problem Type SNOMED Code ICD Code Onset Dates Problem Status W/U Status Risk Notes Problem Localized, primary osteoarthritis of the ankle and/or foot (676969124) Primary osteoarthrit is, right ankle and foot (M19.071) Active confirmed Plan Of Treatment Pending Test Test Name Order Date X ray : Foot, right 3V 04/28/2019 X ray : Foot, right 3V 07/07/2019 Insurance Providers Payer Name Payer Address Payer Phone Subscriber Number Group Number Insured Name Patient Relationship to Insured Coverage Start Date Coverage End Date [facility] [address] [place] [address] [id number] Tyshawn Galvez lt Self - patient is the insured Medical (General) History Medical History History ICD Code Headaches/Migraines High blood pressure Surgical History Surgery Date(Month/Year) appendectomy Decompressional Osteotomy R w/faith as nis 07/02/2019
== END 2024-11-05 13:48 | disposition home or self-care (01) ==
LOC: HO.US 13:47
PROVIDERS: PCP Internal Medicine; Visit Provider Internal Medicine
DX: R09.89 Other specified symptoms and signs involving the circulatory and respiratory systems (principal)
CPT/HCPCS: 93880

== ENCOUNTER → 2024-11-05 13:50 | Outpatient (BNV) | payer MEDICARE, SELFPAY | PROVIDERS: PCP Internal Medicine; Visit Provider Radiology Diagnostic Radiology | DX: I65.22 Occlusion and stenosis of left carotid artery (principal); R09.89 Other specified symptoms and signs involving the circulatory and respiratory systems | CPT/HCPCS: 93880 ==

== ENCOUNTER 2024-11-26 11:03 | Outpatient (AMB) | payer MEDICARE, SELFPAY ==
--- NOTE | 2024-11-26 11:11 | MHC.OFFVIS ---
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 He had an ultrasound on 11/05/24 that showed left side stenosis at 50-79%. He did not have any symptoms , test ordered after primary care physician heard something at my appointment. 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 He was referred for further evaluation after an ultrasound demonstrated a 50-79% stenosis on the left carotid artery while the right side was normal. The patient's primary care physician had noted a bruit, prompting the initial ultrasound. He denies any history of significant neurological symptoms, such as stroke or TIA. Mild numbness in the arm on occasion is noted but resolves with movement. The patient manages hypertension medically, and his lifestyle includes regular physical activity, such as walking a mile each day. He is being maintained on a statin. He now presents for vascular evaluation [facility] Medical History Helicobacter pylori (H. pylori) HTN (hypertension) GERD (gastroesophageal reflux disease) Surgical History Hx of esophagogastroduodenoscopy Hx of colonoscopy Social History Alcohol intake: former Patient Tobacco Use Status: Former Tobacco user Tobacco use type: Cigarette Review of Systems Const All systems reviewed & are unremarkable except as noted in HPI and below Reports no additional complaints ENT Reports Normal hearing present Card Denies chest pain, Denies chest pain at rest, Denies chest pain with activity and Denies pedal edema Resp Denies cough GI Denies abdominal pain Musc Denies abnormal gait, Denies muscle cramps and Denies radiating pain into limb Skin/Breast Denies skin ulcer and Denies wounds Neuro Reports Normal hearing present and Denies abnormal gait Psych Reports no additional complaints Physical Exam Const General: cooperative, healthy appearing and comfortable Orientation/consciousness: oriented to person, oriented to place and oriented to time HEENT Head: Yes normal to inspection Neck Neck: Yes normal visual inspection Carotids: no bruits Chest Chest palpation & inspection: normal inspection of the chest Resp Effort & Inspection: normal respiratory effort and able to speak in complete sentences Auscultation: clear to auscultation bilaterally, no crackles, no rales, no rhonchi and no wheezes Cardio Rate: regular rate Rhythm: regular rhythm Heart sounds: S1 normal heart sound present and S2 normal heart sound present Bruits: no carotid bruits Peripheral pulses: Peripheral pulses 2+ throughout GI Inspection: Yes normal to inspection Skin Wounds: no wounds Hair: normal Neuro General: oriented to person, oriented to place and oriented to time Cranial nerves: Yes CN's II-XII intact bilaterally and Yes Normal hearing present Cognition (Neuro): normal cognition Motor exam (neuro): 5/5 motor strength present throughout Extrem Other: venous exam: No significant superficial varicosities or spider telangiectasias, minimal edema General: No clubbing, No cyanosis and No edema Psych Appearance: grossly normal Mental Status: mental status grossly normal Speech and movement: Normal speech and movement present Results Reviewed Results Reviewed: Carotid ultrasound dated 11/05/2024 demonstrates right-sided 0-49% and left side 50-79% stenosis with a peak systolic of only 152. Written report and images were reviewed. Assessment & Plan Assessment & Plan (1) Bilateral carotid artery stenosis: Code(s): I65.23 - Occlusion and stenosis of bilateral carotid arteries Category: Medical Plan: In short patient has asymptomatic carotid disease. We have reviewed signs and symptoms of a stroke. We also discussed risk factor modification inclusive a healthy diet low in cholesterol. I have also added a baby aspirin to his daily regimen. The patient will follow up with us with surveillance ultrasound of the carotids 6 months. Should there be any changes or signs or symptoms of a stroke we will be happy to see them back sooner. Thank you for allowing us to participate in this patient's care. If there are any questions or concerns please do not hesitate to contact us. Plan Patient was informed and verbally consented to the use of an ambient scribe for clinic note documentation during this visit. Orders: Orders US carotid duplex BI 6 Months I65.23 - Occlusion and stenosis of bilateral carotid arteries Patient Instructions: - Start taking 81 mg aspirin once daily. - Follow a heart-healthy diet, low in fats and cholesterol. - Continue daily exercise, such as walking, for at least one mile. - Follow up with another carotid ultrasound in six months. - Be aware of any new neurological symptoms like numbness or weakness and report them immediately. Coding Level of Care Code New Pt Level 4 (25996) Complex EM visit Add On G2211 Diagnoses Bilateral carotid artery stenosis I65.23
--- OUTSIDE RECORDS SUMMARY | 2024-11-26 12:14 | XMS_ITS ---
Author Organization Asim Kim MD Address [address] [place] [phone] Care Team Providers Care Wash And Greaser Name Role Phone Asim Kim Primary Care [...] Status Risk Notes Problem Carotid artery disease (019278055) Carotid artery disease (I77.9) Active confirmed Vital Signs Blood pressure systolic 116 mm Hg 11/13/19 25 Blood pressure diastolic 62 mm Hg 025 Height 66.25 in 11/12/2024 Weight 167 lbs 11/12/2024 BMI 26.75 kg/m2 11/12/2024 weight is down 3 pounds [facility] e 10-12-24 Encounters Encounter Location Date Provider Diagnosis Asim Kim MD [address] [place] [address] [place] [phone] 11/12/2024 Asim Kim Carotid artery disease I77.9 [...] GONZALEZ Next Appt Details Provider Name:Asim leung, 04/06/2025 07:30:00 AM, [address] [place] [address], [address] [place] [address], [phone], Provider Name:Asim leung, 04/13/2025 10:00:00 AM, [address] [place] [address], [address], [place], [phone], Provider Name:Asim Clark ieestrella, 10/07/2025 07:15:00 AM, [address] [facility], [address], [place], [phone], Provider Name:Asim Clark hugor, 10/14/2025 09:30:00 AM, [address] [facility], [address], [place], [phone], Progress Notes * Tyshawn GRAHAM MDOB:11/1954 (69 yo M)Acc No.[id number]:11/12/2024 Patient:?Tyshawn GRAHAM Provider:?Asim Kim MD :1955???Age:69 Y???Sex:Male Johnny e:11/12/2024 Address:[address] [place] [address] , [id number] Subjective: * Chief Complaints: * ???CBACK US * HPI: ???Symptom(s):? patient is a 69 yo male here to discuss recent US. * ROS:?General/Constitutional:?Denies?Chills.?Denies?Fatigue.?Denies?Fever.?Denies?Headache.?ENT:?Denies?Sore throat.?Respiratory:?Denies?Cough.?Denies?Shortness of breath at rest.?Denies?Shortness of breath with exertion.?Gastrointestinal:?Denies?Diarrhea.?Denies?Nausea.? * Medical History:? * Surgical History:? * Hospitalization/Major Diagno stic Procedure:? * Medications:?TakingMetoprolo l Succinate ER 50 MG Tablet Extended Release [...] reviewed and reconciled with the patient * Allergies:?N.K.D.A.yes[Aller gies Verified] Objective: * Vitals:?Ht: 66.25, Wt: 167, BMI:26.75, BP:116/62, Wt-k.75. weight is down 3 pounds since 10-12-24. * Examination: ???General Examination: ?GENERAL APPEARANCE:?normal, alert, well hydrated, in no distress.?HEAD:?normocephalic.?NECK/THYROID:?bilateral bruits.?SKIN:?good turgor.?HEART:?regular rate and rhythm.?LUNGS:?no wheezes, rales, rhonchi, good air movement, clear to auscultation bilaterally.? Assessment: * Assessment: 1.?Carotid artery disease - I77.9 (Primary)??? Plan: * Treatment: * Procedure Codes:? * * Sign off status: Completed true * Provider:?Asim Kim MD Date:?0 11/12/2024 Generated for Mikaela reaves/Shailesh/Danisitting on:?11/26/2024 12:14 PM EDT History and Physical Notes * [...]
--- OUTSIDE RECORDS SUMMARY | 2024-11-26 12:14 | XMS_ITS | Patient Health Record ---
Author Organization [facility] Address [address] [place] [address] Care Team Providers Care Landscape Artist Name Role Phone Asim Kim MD Primary Care Provider Shanda Calderon Unavailable [phone] Reason For Referral No Information Medications Medication [...] primary osteoarthritis of the ankle and/or foot (216438680) Primary osteoarthrit is, right ankle and foot (M19.071) Active confirmed Plan Of Treatment Pending Test Test Name Order Date X ray : Foot, right 3V 04/28/2019 X ray : Foot, right 3V 07/07/2019 Insurance Providers Payer Name Payer Address Payer Phone Subscriber Number Group Number Insured Name Patient Relationship to Insured Coverage Start Date Coverage End Date [facility] [address] [place] [address] [id number] Tyshawn Galvez lt Self - patient is the insured Medical (General) History Medical History History ICD Code Headaches/Migraines High blood pressure Surgical History Surgery Date(Month/Year) appendectomy Decompressional Osteotomy R w/faith as nis 07/02/2019
--- OUTSIDE RECORDS SUMMARY | 2024-11-26 12:14 | XMS_ITS ---
Author Organization Asim Kim MD Address [address] [place] [phone] Care Team Providers Care Coffee Bar Attendant Name Role Phone Asim Kim Primary Care [...] Diagnosis Asim Kim MD [address] [facility] [address] [place], [place] [phone] 10/12/2024 Asim Kim Thrombocytopenia D69 .6 ; [...] R09.89) pending diagnostic testing/ order faxed to [facility] dept 10/12/2024 Labile [...] pe nding diagnostic testing/ order faxed to [facility] dept Labile hypertension stable, will continu e [...] Up: 6 Months, Reason: Provider Name:Asim leung, 04/06/2025 07:30:00 AM, [address] [place] [address], [address], [phone], Provider Name:Asim leung, 04/13/2025 10:00:00 AM, [address] [place] [address], [address], [phone], Provider Name:Asim leung, 10/07/2025 07:15:00 AM, [address] [place] [address], [address], [phone], Provider Name:Asim leung, 10/14/2025 09:30:00 AM, [address], [address], [place], [phone], Progress Notes * Tyshawn GRAHAM MDOB:11/1954 (69 yo M)Acc No.[id number]:10/12/2024 Progress Notes Patient:?Tyshawn GRAHAM Provider:?Asim Kim MD :1955???Age:69 Y???Sex:Male Johnny e:10/12/2024 Address:[address] [place] [address] , [facility] Subjective: * Chief Complaints: * ???Annual visit * HPI: ???Depression Screening:?PHQ-9?Little interest or pleasure in doing things?Not at all,?Feeling down, depressed, or hopeless?Not at all,?Trouble falling or staying asleep, or sleeping too much?Not at all,?Feeling tired or having little energy?Not at all,?Poor appetite or overeating?Not at all,?Feeling bad about yourself or that you are a failure, or have let yourself or your family down?Not at all,?Trouble concentrating on things, such as reading the newspaper or watching television?Not at all,?Moving or speaking so slowly that other people could have noticed; or the opposite, being so fidgety or restless that you have been moving around a lot more than usual?Not at all,?Thoughts that you would be better off or of hurting yourself in some way?Not at all,?Total Score?0.?Interpretation and Intervention?Depression Screening Findings?Negative,?Follow-Up for Depression?: review of PHQ-9 found negative result, no follow-up needed.?Communication Needs:?Communication Needs?Does the patient have a hearing impairment?No,?Does the patient have a vision impairment??Yes,?If yes, what is the vision impairment??Glasses,?Does the patient have a cognition impairment??No.?Fall Risk:?History?Have you had any falls with injury in the past year??No,?Have you had two or more falls in the past year??No.?SDOH Questions:?SDOH Questions?In the past year have you been worried about losing housing??No,?In the past year have you or any family members you live with been unable to get any of the following when it was really needed? Check all that apply:?None.?Symptom(s):? patient is a 69 yomale here for ann visit with review of recent labs and follow up of chronic issues. * ROS:?General/Constitutional:?Change in appetite?denies.?Chills?denies.?Fever?denies.?Ophthalmologic:?Blurred vision?denies.?Discharge?denies.?Pain?denies.?ENT:?Decreased hearing?denies.?Sore throat?denies.?Swollen glands?denies.?Endocrine:?Cold intolerance?denies.?Excessive thirst?denies.?Heat intolerance?denies.?Weight loss?denies.?Respiratory:?Cough?denies.?Shortness of breath at rest?denies.?Shortness of breath with exertion?denies.?Wheezing?denies.?Cardiovascular:?Chest pain at rest?denies.?Chest pain with exertion?denies.?Irregular heartbeat?denies.?Shortness of breath?denies.?Gastrointestinal:?Abdominal pain?denies.?Change in bowel habits?denies.?Diarrhea?denies.?Nausea?denies.?Rectal bleeding?denies.?Vomiting?denies .?Genitourinary:?Blood in urine?denies.?Difficulty urinating?denies.?Frequent urination?denies.?Musculoskeletal:?Painful joints?denies.?Weakness?denies.?Skin:?Dry skin?denies.?Itching?denies.?Denies?Mole(s),? changes in moles, new moles or any lesions of concern.?Denies?Photosensitivity.?Rash?denies.?Neurologic:?Dizziness?denies.?Fainting?denies.?Headache?denies.? * Medical History:? * Surgical History:? * Hospitalization/Major Diagno stic Procedure:? * Family History:?Father: dece ased 43 yrs.?Mother: 23 yrs.?1 sister(s) - healthy. 3 daughter(s) . .? Father-Drug Abuse Mother-Hepatitis, No pertinent family medical historyfather substance abuse and no mental illness in the family, No pertinent family medical history, Denies mental health/substance abuse family history, No pertinent family medical history. * Social History:?Tobacco Use:?Tobacco Use/Smoking?Patient is a?former smoker,?How long has it been since you last smoked??> 10 years,?Additional Findings: Tobacco Non-User?Former smoker, currently using no form of tobacco.?Drugs/Alcohol:?Alcohol Screen?Did you have a drink containing alcohol in the past year??Yes,?How often did you have a drink containing alcohol in the past year??Monthly or less (1 point),?How many drinks did you have on a typical day when you were drinking in the past year??1 or 2 drinks (0 point),?How often did you have 6 or more drinks on one occasion in the past year??Never (0 point),?Points?1,?Interpretation?Negative.?Miscellaneous:?Caffeine: yes, frequency: 4 cups of coffee in the am. Children: yes. Community involvements: no. Exercise: no. Housing: owning. Living with: spouse and grand daughter. Marital status: . Occupation: works full-time. Pets: dog x1 cat x2. Travel outside of the [place]: no. * Medications:?TakingMetoprolo l Succinate ER 50 MG [...] gies Verified] Objective: * Vitals:?Ht: 66.25, Wt: 170, BMI:27.23, BP:102/54, Wt-k.11. * ???Past Orders: ???Lab:Hemoglobin A1c (Order Date - 10/05/2024) (Collection Date & Time - 10/05/2024 07:45 AM) ? Value Reference Range ?Hemoglobin A1c % 5.2 <6. 0 - % ?Estimated Average Glucose 103 - mg/dL ???Lab:Complete Blood Count Auto Diff (Order Date - 10/05/2024) (Collection Date & Time - 10/05/2024 07:45 AM) ? Value Reference Range ?White Blood Count 4.5 L 4. 8-10.8 - X10*3/uL ?Red Blood Count 4.94 4.60 -5.80 - X10*6/uL ?Hemoglobin 14.8 14.0-18.0 - g/dl ?Hematocrit 43.6 42.0-52.0 - % ?Mean Corpuscular Volume 88.3 80.0-98.0 - fL ?Mean Corpuscular Hemoglobin 30.0 27.0-33.0 - pg ?Mean Corpuscular HGB Conc 33.9 31.0-36.0 - g/dl ?Red Cell Distribution Width 13.4 11.0-16.0 - % ?Platelet Count 141 L 160-4 00 - X10*3/uL ?Mean Platelet Volume 10.7 9.4-12.4 - fL ?Neutrophils Percent Auto 56.0 45-73 - % ?Imm Gran Pct Auto 0.2 0. 0-0.4 - % ?Lymphocytes Percent Auto 31.5 20-40 - % ?Monocytes Percent Auto 8.3 2-11 - % ?Eosinophils Percent Auto 3.1 0-4 - % ?Basophils Percent Auto 0.9 0-2 - % ?NRBC Pct Auto 0.0 0.0-0. 2 - /100WBC ?Neutrophils Absolute Auto 2.5 2.0-8.3 - x10*3/uL ?Imm Gran Abs Auto 0.01 0. 00-0.03 - X10*3/uL ?Lymphocytes Absolute Auto 1.4 1.2-4.9 - X10*3/uL ?Monocytes Absolute Auto 0.4 0.1-1.2 - X10*3/uL ?Eosinophils Absolute Auto 0.1 0.0-0.4 - X10*3/uL ?Basophils Absolute Auto 0.0 0.0-0.2 - X10*3/uL ?NRBC Abs Auto 0.000 0.0-0. 012 - X10*3/uL ???Lab:UA ClnCatch+Micro w/r flx Cult (Order Date - 10/05/2024) (Collection Date & Time - 10/05/2024 07:45 AM) ? Value Reference Range ?Color Urine Yellow - ?Appearance Urine Clear - ?PH 5.5 5.0-9.0 - ?Glucose Urine UA Negative Neg ative - mg/dL ?Urine Blood Negative Negative - ?Specific [place] - Urine 1.020 1.005-1.025 - ?Urine Protein Negative Neg-Tr sanjana - mg/dL ?Urine Ketones Negative Negati ve - mg/dL ?Nitrite Urine Negative Negati ve - ?Leukocyte Esterase Urine Negative Negative - ?RBC Urine 0-2 0-2 - /HPF ?WBC Urine 0-5 0-5 - /HPF ?Squamous Epithelial Cell Urine 0-2 0-2 - /HPF ?Bacteria Urine None Seen None Seen - ?Hyaline Casts Urine 0-2 0-2 - /LPF ???Lab:Comprehensive [place]. P qian Fast (Order Date - 10/05/2024) (Collection Date & Time - 10/05/2024 07:45 AM) ? Value Reference Range ?Sodium 140 135-145 - mmo l/L ?Bilirubin Total 1.2 H 0.0- 1.0 - mg/dL ?Aspartate Amino Transferase 35 5-37 - U/L ?Alanine Aminotransferase 52 H 0-40 - U/L ?Total Protein 6.7 6.5-8. 0 - g/dL ?Albumin Level 4.4 3.5-5. 0 - g/dL ?Alkaline Phosphatase 70 39-117 - U/L ?Potassium 4.0 3.3-5.1 - mmol/L ?Chloride 108 96-108 - mm ol/L ?Carbon Dioxide 26 22-29 - mmol/L ?Anion Gap 10 L 12-20 - ?Blood Urea Nitrogen 15 9-16 - mg/dL ?Creatinine 0.80 0.5-1.4 - mg/dL ?Estimated Glomerular Filt Rate > 60 - ?Glucose Fasting 121 H 60-9 9 - mg/dL ?Calcium 9.3 8.4-10.2 - m g/dL ???Lab:Lipid Panel (Order Da te - 10/05/2024) (Collection Date & Time - 10/05/2024 07:45 AM) ? Value Reference Range ?Triglycerides 179 H <150 - mg/dL ?Cholesterol 129 <200 - m g/dL ?LDL Cholesterol Calculated 47 <100 - mg/dL ?HDL Cholesterol 47 >40 - mg/dL ???Lab:PSA,Total (Free>4and< 10) (Order Date - 10/05/2024) (Collection Date & Time - 10/05/2024 07:45 AM) ? Value Reference Range ?PSA,Total (Free>4and<10) 1.16 0.00-4.00 - ng/mL ???Lab:Microalbumin, Random (Order Date - 10/05/2024) (Collection Date & Time - 10/05/2024 07:45 AM) ? Value Reference Range ?Creatinine Urine 115.06 - m g/dL ?Microalbumin Urine 5.0 - mg/L ?Microalbum Creatinine Ratio Ur 4.3 <30 - ug/mg cr * Examination: ???General Examination: ?GENERAL APPEARANCE:?well developed, well nourished, in no acute distress.?HEAD:?normocephalic, atraumatic.?EYES:?pupils equal, round, reactive to light and accommodation, sclera non-icteric.?EARS:?normal.?ORAL CAVITY:?mucosa moist.?THROAT:?clear.?NECK/THYROID:?neck supple, full range of motion, no cervical lymphadenopathy, bruits in both carotids possibly radiated from aoritic stenosis.?SKIN:?warm and dry, no suspicious lesions.?HEART:?regular rate and rhythm, S1, S2 normal, , grade 2/6 systolic murmur at left sternal border?.?LUNGS:?clear to auscultation bilaterally.?ABDOMEN:?soft, nontender, nondistended, bowel sounds present, normal, no organomegaly , no masses palpable.?RECTAL EXAM:?normal tone, no external hemorrhoids, no masses palpable, prostate normal, stool guaiac negative.?MALE GENITOURINARY:?circumcised, no testicular mass, testes descended bilaterally.?EXTREMITIES:?no clubbing, cyanosis, or edema.?NEUROLOGIC:?nonfocal, motor strength normal upper and lower extremities, sensory exam intact.? Assessment: * Assessment: 1.?Thrombocytopenia - D69.6 (Primary)???2.?Mild aortic stenosis - I35.0???3.?Carotid bruit, unspecified laterality - R09.89???4.?Labile hypertension - I10???5.?Prostatism - N40.0???6.?High triglycerides - E78.1???7.?Colon cancer screening - Z12.11???8.?Depression screening - Z13.31??? Plan: * Treatment: 2.?Mild aortic stenosis?Imaging: ECHO (Ordered for 10/12/2026) Notes: repeat echo in 2 years/ order entered in system printed and put in future folder?? 3.?Carotid bruit, unspecifie d laterality?Imaging: US CAROTID BILATERAL DOPPLER Notes: pending diagnostic testing/ order faxed to [facility] CS dept?? 4.?Labile hypertension? Continue Metoprolol Succinate ER Tablet Extended Release 24 Hour, 50 MG, TAKE 1 TABLET BY MOUTH EVERY DAY.?? Notes: stable, will continue currnt regiment?? 5.?Prostatism? Continue Tamsulosin HCl Capsule, 0.4 MG, TAKE 1 CAPSULE BY MOUTH EVERY DAY DIRECTED 90.?? Notes: stable, will continue to monitor?? 6.?High triglycerides? Continue Atorvastatin Calcium Tablet, 20 MG, 1 tablet, Orally, Once a day.?? Notes: stable, will continue current regiment and will continue to monitor?? 7.?Colon cancer screening?LAB: Occult Blood, Stool, Guaiac (Collection Date & Time - 10/12/2024)?Negative ? Value Reference Range ?Occult Blood, Stool, Guaiac Neg Notes: guaiac negative??8.?Depression screening? Notes: negative screen?? * Procedure Codes:?42050 TEST FOR BLOOD, [id number] Complex e/m visit add on * Preventive Medicine:? ??Counseling:?Care goal follow-up plan:?Counseling for abnormal BMI provided?Yes,?Above Normal BMI Follow-up?Giving encouragement to exercise.? * Follow Up:?6 Months * * Sign off status: Completed true * Provider:?Asim Kim MD Date:?0 10/12/2024 Generated for Mikaela reaves/Shailesh/eTransmitting on:?11/26/2024 12:14 PM EDT History and Physical Notes * HPI (History of Present Illness) Category Sub-Category Detail Notes Category Not es Symptom(s) patient is a 69 yomale here for [facility] visit with review of recent [...] patient have a vision impairmen t?: Yes ?If yes, what is the vision impairment?: Glasses Does the patient have a cognition impair ment?: No Examination Category Sub-Category Detail Notes Category Not es General Examination GENERAL APPEARANCE: well dev eloped, well nourished, in no acute distress HEAD: normocephalic, atrau matic EYES: pupils equal, round, reactive to light and accommodation, sclera non- icteric EARS: normal THROAT: clear NECK/THYROID: neck supple, [...]
--- OUTSIDE RECORDS SUMMARY | 2024-11-26 12:14 | XMS_ITS ---
Author Organization Asim Kim MD Address [address] [place] [phone] Care Team Providers Care Hog Confinement System Manager Name Role Phone Asim Kim Primary Care Provider REASON FOR VISIT tick bite Medications Medication SIG (Take, Route, Frequency, Duration) Notes Start Date End Date Status Doxycycline Hyclate 100 MG 1 capsule Ora lly twice a day for 1 days 11/24/2024 Active Encounters Encounter Location Date Provider Diagnosis Asim Kim MD [address] [place], [place] [phone] 11/24/2024 Asim Kim Plan Of Treatment Medication Medication Name Sig Start Date Stop Date Notes Doxycycline Hyclate 100 MG 1 capsule Ora lly twice a day for 1 days 11/24/2024 Next Appt Details Provider Name:Asim leung, 04/06/2025 07:30:00 AM, [address], [address], [place], [place], [phone], Provider Name:Asim Clark ier, 04/13/2025 10:00:00 AM, [address], [address], [place], [phone], Provider Name:Asim Clark ier, 10/07/2025 07:15:00 AM, [address], [address], [place], [phone], Provider Name:Asim Clark ier, 10/14/2025 09:30:00 AM, [address], [address], [place], [phone], Progress Notes * Tyshawn GRAHAM MDOB:11/1954 (69 yo M)Acc No.[id number]:11/24/2024 Patient:?Tyshawn GRAHAM :1955???Age:69 Y???Sex:Male Address:[address] [place] [address] [place] , [place] [address] * Refills? Start Doxycycline Hyclate Capsule, 100 MG, Orally, 2 Capsule, 1 capsule, twice a day, 1 days, Refills=3 * true * Date:? Generated for Mikaela reaves/Shailesh/eTbhaktismitting on:?11/26/2024 12:14 PM EDT
--- OUTSIDE RECORDS SUMMARY | 2024-11-26 12:15 | XMS_ITS | Clinical Summary ---
Author Organization [facility] ity Address [address] [place] [address] Care Team Providers Care Industrial Engineering Name Role Phone Unavailable Primary Care Provider [...] Vaccines (1 of 2) 01/16/2006 COVID-19 Vaccine ( - 2023-2 5 season) 2024 Influenza Vaccine [...]
--- OUTSIDE RECORDS SUMMARY | 2024-11-26 12:15 | XMS_ITS | Patient Health Record ---
Author Organization Asim Kim MD Address [address] [place] [address] [phone] Care Team Providers Care Hotel Operation Manager Name Role Phone Asim Kim Primary Care Provider Allergies No Known Allergies Results Component Value Reference Range Notes Liver Panel Reviewed date:04/03/2024 12:24:45 PM Interpretation: Performing Lab:[facility], [address] [place] [phone] Notes/Report: Bilirubin Total 1.1 0.0-1.0 mg/dL Bilirubin Direct 0.4 0.0-0.5 mg/dL Aspartate Amino Transferase 26 5-37 U/L Alanine Aminotransferase 37 0-40 U/L Total Protein 6.8 6.5-8.0 g/dL Albumin Level 4.3 3.5-5.0 g/dL Alkaline Phosphatase 65 39-117 U/L Glucose Fasting Reviewed date:04/03/2024 12:25:14 PM Interpretation: Performing Lab:[facility], [address] [place] [phone] Notes/Report: Glucose Fasting 143 60-99 mg/dL A fasting glucose of 126 mg/dl or greater on more than one occasion is considered diagnostic of diabetes. Lipid Panel with Reflex Reviewed date:04/03/2024 12:25:23 PM Interpretation: Performing Lab:[facility], [address] [place] [phone] Notes/Report: Triglycerides 107 <150 mg/dL Desirable Triglyceride: less than 150 mg/dL Borderline High Triglyceride 150-199 mg/dL High Triglyceride: 200-499 mg/dL Very High Triglyceride: greater than or equal to 5OO mg/dL Cholesterol 117 <200 mg/dL Desirable Cholesterol: less than 200 mg/dL Borderline High Cholesterol: 200-239 mg/dL High Cholesterol: greater than 239 mg/dL LDL Cholesterol Calculated 45 <100 mg/dL Desirable LDL: less than 100 mg/dL Near Optimal/Above Optimal LDL: 110-129 mg/dL Borderline High LDL: 130-159 mg/dL High LDL: 160-189 mg/dL Very High LDL: greater than or equal to 190 mg/dL HDL Cholesterol 51 >40 mg/dL Desirable HDL: greater than 40 mg/dL Note: This HDL assay may give artificially low results in patients with liver disease. Hemoglobin A1c Reviewed date:04/03/2024 12:24:52 PM Interpretation: Performing Lab:[facility], [address] [place] [phone] Notes/Report: Hemoglobin A1c % 5.0 <6.0 % Hemoglobin A1C Reference Range Adults: 4.8 - 6.0 % Non diabetic: < 6.0 % Goal: < 7.0 % Additional Action Suggested: > 8.0 % Note: Hemoglobin A1c results are invalid for patients with abnormal amounts of HbF. Blood transfusions may impact the HbA1c concentration in the patient sample. Estimated Average Glucose 97 eAG = Estimated average glucose which is %A1C expressed as average glucose, using the formula of the G4J-Uemmpsw Average Glucose study (ADAG), Diabetes Care, Vol.31,#8, 2007 Complete Blood Count Auto Di ff Reviewed date:10/05/2024 05:14:43 PM Interpretation: Performing Lab:[facility], [address] [place] [phone] Notes/Report: White Blood Count 4.5 4.8-10.8 X10*3/uL [...] 0.0-0.2 /100WBC Neutrophils Absolute Auto 2.5 2.0-8.3 x10*3/uL Imm Gran Abs Auto 0.01 0.00-0.03 X10*3/uL Lymphocytes Absolute Auto 1.4 1.2-4.9 X10*3/uL Monocytes Absolute Auto 0.4 0.1-1.2 X10*3/uL Eosinophils Absolute Auto 0.1 0.0-0.4 X10*3/uL Basophils Absolute Auto 0.0 0.0-0.2 X10*3/uL NRBC Abs Auto 0.000 0.0-0.012 X10*3/uL Comprehensive [place]. Panel Fa st Reviewed date:10/05/2024 12:33:28 PM Interpretation: Performing Lab:[facility], [address] [place] [phone] Notes/Report: Sodium 140 135-145 mmol/L Potassium 4.0 [...] Panel Reviewed date:10/05/2024 12:34:41 PM Interpretation: Performing Lab:[address] [phone] Notes/Report: Triglycerides 179 <150 mg/dL Desirable Triglyceride: [...] (Free>4and<10) Reviewed date:10/05/2024 12:33:59 PM Interpretation: Performing Lab:[address] [phone] Notes/Report: PSA,Total (Free>4and<10) 1.16 0.00-4.00 ng/mL A [...] Random Reviewed date:10/05/2024 12:34:54 PM Interpretation: Performing Lab:[address] [phone] Notes/Report: Creatinine Urine 115.06 Microalbumin Urine 5.0 Microalbum/Creatinine Ratio Ur 4.3 <30 ug/mg cr Albumin/Creatinine Ratio Reference Ranges: Normal: < 30 ug/mg creatinine Microalbuminuria: 30 - 300 ug/mg creatinine Clinical Albuminuria: > 300 ug/mg creatinine Hemoglobin A1c Reviewed date:10/05/2024 12:33:52 PM Interpretation: Performing Lab:[address] [phone] Notes/Report: Hemoglobin A1c % 5.2 <6.0 % [...] average glucose, using the formula of the D3O-Hbvtrpe Average Glucose study (ADAG), Diabetes Care, Vol.31,#8, Feb. 2007 UA ClnCatch+Micro w/rflx Cul t Reviewed date:10/05/2024 12:45:01 PM Interpretation: Performing Lab:[address] [phone] Notes/Report: Urine, Clean Catch Color Urine Yellow Appearance Urine Clear PH 5.5 5.0-9.0 Glucose Urine UA Negative Negative mg/dL Urine Blood Negative Negative Specific [place] - Urine 1.020 1.005-1.025 Urine Protein Negative Neg-Trace mg/dL Urine Ketones Negative Negative mg/dL Nitrite Urine Negative Negative Leukocyte Esterase Urine Negative Negative RBC Urine 0-2 0-2 /HPF WBC Urine 0-5 0-5 /HPF Squamous Epithelial Cell Urine 0-2 0-2 /HPF Bacteria Urine None Seen None Seen Hyaline Casts Urine 0-2 0-2 /LPF Occult Blood, Stool, Guaiac Reviewed date:10/12/2024 10:42:46 AM Interpretation:Negative Performing Lab: Notes/Report: Negative Occult Blood, Stool, Guaiac Neg Hold Gold Reviewed date:04/03/2024 12:25:07 PM Interpretation: Performing Lab:[facility], [address] [place] [phone] Notes/Report: Hold Gold See Note Specimen held untested for 24 hours; Call to request Chemistry testing. US carotid duplex BI Reviewed date:11/12/2024 12:14:44 PM Interpretation:YANY 11/12 Performing Lab: Notes/Report: [address] [address] Ultrasound Report Signed Patient: Tyshawn Langford MR#: [id number] : 1955 Acct:[id number] Age/Sex: 69 / M ADM Date: 11/05/24 Loc: HO.US Attending Dr: Asim Kim MD Ordering Physician: Asim Kim MD Date of Service: 11/05/24 Procedure(s): US carotid duplex BI Accession Number(s): [id number] cc: Asim Kim MD EXAMINATION: BILATERAL CAROTID ULTRASOUND WITH DOPPLER HISTORY: CAROTID BRUIT COMPARISON: There are no prior studies for comparison. TECHNIQUE: Real time and Color and Spectral doppler ultrasonography of the carotid and vertebral arteries was performed in multiple planes. FINDINGS: No significant plaque is seen in the right internal carotid artery. There is mild plaque on the left. VERTEBRAL FLOW DIRECTION: Antegrade bilaterally. PEAK SYSTOLIC VELOCITIES (in cm/sec): RIGHT: CCA: Prox: 108 Dist: 92 ICA: Prox: 79 Mid: 69 Dist: 67 ICA/CCA Ratio: 0.73 ECA: 153 Peak ICA EDV: 29 LEFT: CCA: Prox: 109 Dist: 90 ICA: Prox: 152 Mid: 144 Dist: 96 ICA/CCA Ratio: 1.39 ECA: 109 Peak ICA EDV: 52 US/US carotid duplex BI IMPRESSION: 1. Unremarkable ultrasound appearance of the right carotid artery. 2. Findings consistent with 50-79% stenosis of the left internal carotid artery. Electronically signed by: Armen Enciso MD 11/06/2024 01:45 PM EDT RP Dictated By: Armen Enciso MD Signed By: <Electronically signed by Armen Enciso MD in OV> 11/06/24 1345 DD/ 1400 TD/TT: 11/05/24 1409 Helicopter Engineer: [place] [id number] Ultrasound Report Signed Patient: Tyshawn Langford MR#: [id number] : 1955 Acct:[id number] Age/Sex: 69 / M ADM Date: 11/05/24 Loc: .US Attending Dr: Asim Kim MD Ordering Physician: Asim Kim MD Date of Service: 11/05/24 Procedure(s): US carotid duplex BI Accession Number(s): [id number] cc: Asim Kim MD EXAMINATION: BILATER AL CAROTID ULTRASOUND WITH DOPPLER HISTORY: CAROTID BRUIT COMPARISON: There ar e no prior studies for comparison. TECHNIQUE: Real time and Color and Spectral doppler ultrasonography of the carotid and vertebral arteries was performed in multiple planes. FINDINGS: No significant plaque is seen in the right internal carotid artery. There is mil d plaque on the left. VERTEBRAL FLOW DIRECTION: Antegrade bilaterally. PEAK SYSTOLIC VELOCITIES (in cm/sec): RIGHT: CCA: Prox: 108 Dist: 92 ICA: Prox: 79 Mid: 69 Dist: 67 ICA/CCA Ratio: 0.73 ECA: 153 Peak ICA EDV: 29 LEFT: CCA: Prox: 109 Dist: 90 ICA: Prox: 152 Mid: 144 Dist: 96 ICA/CCA Ratio: 1.39 ECA: 109 Peak ICA EDV: 52 ___ US/US carotid duplex BI IMPRESSION: 1. Unremarkable ultrasound appearance of the right carotid artery. 2. Findings consiste nt with 50-79% stenosis of the left internal carotid artery. Electronically jaqueline d by: Armen Enciso MD 11/06/2024 01:45 PM EDT RP Dictated By: Armen Enciso MD Signed By: <Electronically signed by Armen Enciso MD in OV> 11/06/24 1345 DD/ 1400 TD/TT: 11/05/24 1409 Helicopter Engineer: Reason For Referral Reason Carotid artery disea [...] Referral Priority Routine Referral Appointment Date 11/26/2024 Medications Medication SIG (Take, Route, Frequency, Duration) Notes Start Date End Date Status Atorvastatin Calcium 20 MG 1 tablet Orally Once a day 01/13/2024 Active Naproxen 500 MG TAKE 1 TABLET BY ELIAS TH EVERY DAY WITH FOOD OR MILK NEEDED FOR 90 DAYS for 90 Active Terbinafine HCl 250 MG 1 tablet Orally O nce a day for 90 days 03/14/2023 Not-Taking Metoprolol Succinate ER 50 MG TAKE 1 TABLET BY MOUTH EVERY DAY for 90 Active Tamsulosin HCl 0.4 MG TAKE 1 CAPSULE BY MOUTH EVERY DAY DIRECTED 90 Active Multi For Him 50+ - as directed Orally Not-Taking Doxycycline Hyclate 100 MG 1 capsule Orally every 12 hrs for 1 dose 05/17/2017 Not-Taking CeleBREX 200 MG 1 capsule Orally Onc e a day for 30 day(s) 05/28/2016 Not-Taking Doxycycline Hyclate 100 MG 1 capsule Orally twice a day for 1 days 11/24/2024 Active Immunizations Vaccine Route Administration Date Status Comme nts Flu Vaccine Unknown 04/16/2013 Administered Work Flu Vaccine Unknown 03/20/2013 Administered At work PPSV23 (Pnemovax) IM Intramuscular 12/03/2017 Administered Fluarix Quadrivalent Unknown 05/13/2018 Administered At work Fluarix Quadrivalent IM Intramuscular 05/19/2019 Administe keira Prevnar 13 IM Intramuscular 02/01/2020 Administered Fluarix Quadrivalent Unknown 05/26/2020 Administered [facility] Covid Vaccine Unknown 10/02/2020 Administered Moderna Covid Vaccine Unknown 10/30/2020 Administered Moderna SARS-COV-2 Pfizer Unknown 06/12/2021 Administered [facility] Fluarix Quadrivalent IM Intramuscular 07/03/2021 Administe red Shingrix Unknown 05/30/2022 Administered [facility] Influenza High Dose Unknown 05/30/2022 Administered [facility] Influenza High Dose IM Intramuscular 04/11/2023 Administer ed SARS-COV-2 Moderna Unknown 05/16/2023 Administered [facility] Influenza High Dose IM Intramuscular 04/03/2024 Administer ed Fluarix Quadrivalent Unknown 04/09/2016 Refused Fluarix Quadrivalent Unknown 05/28/2017 Refused Social History Tobacco Use: Social History Observation [...] Never (0 point) Points 1 Interpretation Negative Problems Problem Type SNOMED Code ICD Code Onset Dates Problem Status W/U Status Risk Notes Problem 138229950 Thrombocytopenia (D69.6) Active confirmed Problem 37074741 Hemoptysis (R04.2) Active confirmed Problem 32019140 Prostatism (N40.0) Active confirmed Problem Carotid artery disease (272918578) Carotid artery disease (I77.9) Active confirmed Problem 267067785 Diverticulitis (K57.92) Active confirmed Problem 43437215 Precordial pain (R07.2) Active confirmed Problem 51316766 Essential hypertension (I10) Active confirmed Problem 61099871 Labile hypertens ion (I10) Active confirmed Problem 22842074 Skin lesion (L98.9) Active confirmed Problem 692856669 High triglycerid es (E78.1) Active confirmed Problem 970357585 Mild aortic sten osis (I35.0) Active confirmed Problem 394302332 Neutropenia, unspecified type (D70.9) Active confirmed Problem 425676021 Prediabetes (R73.03) Active confirmed Problem 74606203 Aortic atherosclerosis (I70.0) Active confirmed Problem 350224375 Mild mitral regurgitation (I34.0) Active confirmed Problem 3638563908 Fatty liver dise ase, nonalcoholic (K76.0) Active confirmed Vital Signs Blood pressure diastolic 62 mm Hg 11/12/2024 rhonda ght is down 3 pounds since 10-12-24 Height 66.25 in 11/12/2024 weight is down 3 pounds since 10-12-24 Blood pressure systolic 116 mm Hg 11/12/2024 weig ht is down 3 pounds since 10-12-24 Weight 167 lbs 11/12/2024 weight is down 3 pounds since 10-12-24 BMI 26.75 kg/m2 11/12/2024 weight is down 3 pounds since 10-12-24 Encounters Encounter Location Date Provider Diagnosis Asim Kim MD [address] [place] [id number] 04/03/2024 Asim Kim Prediabetes R73.03 ; Encounter for immunization Z23 ; Aortic atherosclerosis I70.0 and Fatty liver disease, nonalcoholic K76.0 Asim Kim MD [address] [place] [id number] 10/05/2024 Asim Kim Prostatism N40.0 ; Labile hypertension I10 and Prediabetes R73.03 Asim Kim MD [address] [place] [id number] 11/28/2023 Asim Kim Poison richy dermatiti s L23.7 Asim Kim MD [address] [place] [address] [id number] 12/06/2023 Asim Kim Diverticulitis K57.9 2 Asim Kim MD [address] [place] [address] [id number] 01/13/2024 Asim Kim Aortic atheroscleros is I70.0 and Fatty liver disease, nonalcoholic K76.0 Asim Kim MD [address] [place] [address] [id number] 04/07/2024 Asim Kim Prediabetes R73.03 ; Essential hypertension I10 ; High triglycerides E78.1 ; Aortic atherosclerosis I70.0 and Fatty liver disease, nonalcoholic K76.0 Asim Kim MD [address] [place] [address] [id number] 06/29/2024 Asim Kim Acute COVID-19 U07.1 Asim Kim MD [address] [place] [address] Drive [address] [place] [id number] 10/12/2024 Asim Kim Thrombocytopenia D69 .6 ; Mild aortic stenosis I35.0 ; Carotid bruit, unspecified laterality R09.89 ; Labile hypertension I10 ; Prostatism N40.0 ; High triglycerides E78.1 ; Colon cancer screening Z12.11 and Depression screening Z13.31 Asim Kim MD [address] [place] [address] [id number] 11/12/2024 Asim Kim Carotid artery disea se I77.9 Asim Kim MD [address] [place] [address] Drive [address] [place] [id number] 12/06/2023 Asim Kim MD [address] [place] [address] Drive [address] [place] [address] [id number] 11/24/2024 Asim Kim Assessments Encounter Date Diagnosis (ICD Code) Assessment Notes Treatment Notes Treatment Clinical Notes Section Notes 04/03/2024 Prediabetes (ICD-10 - R73.03) 04/03/2024 Encounter for immunization (ICD-10 - Z23) 10/05/2024 Prostatism (ICD-10 - N40.0) 11/28/2023 Poison richy dermatitis (ICD-10 - L23.7) not enough to treat with prednisone, will continue to monitor 12/06/2023 Diverticulitis (ICD-10 - K57.92) THE ORDER HAS BEEN FAXED TO [facility], pending diagnostic testing 01/13/2024 Aortic atherosclerosis (ICD-10 - I70.0) patient verbalized understanding of medication and directions for use, have explained that even though his cholesterol normal, he could benefit from statin 01/13/2024 Fatty liver disease, nonalcoholic (ICD-10 - K76.0) discussed findings of recent CT scan with patient, to diet 04/07/2024 Prediabetes (ICD-10 - R73.03) has good a1c. advised to continue on diet 04/07/2024 Essential hypertension (ICD-10 - I10) stable, at goal, will continue current regiment 06/29/2024 Acute COVID-19 (ICD-10 - U07.1) to not take atorvastatin for 3 weeks, patient verbalized understandingod medication and directions for use 10/12/2024 Thrombocytopenia (ICD-10 - D69.6) stable, will continue to monitor 10/12/2024 Mild aortic stenosis (ICD-10 - I35.0) repeat echo in 2 years/ order entered in system printed and put in future folder 11/12/2024 Carotid artery disease (ICD-10 - I77.9) discussed findings of recent US with patient, referral to dr gonzalez. 04/03/2024 Aortic atherosclerosis (ICD-10 - I70.0) 10/05/2024 Labile hypertension (ICD-10 - I10) 04/07/2024 High triglycerides (ICD-10 - E78.1) stable, at goal, willcontinue current regiment 10/12/2024 Carotid bruit, unspecified laterality (ICD-10 - R09.89) pending diagnostic testing/ order faxed to [facility] CS dept 04/03/2024 Fatty liver disease, nonalcoholic (ICD-10 - K76.0) 10/05/2024 Prediabetes (ICD-10 - R73.03) 04/07/2024 Aortic atherosclerosis (ICD-10 - I70.0) stable, will continue current regiment 10/12/2024 Labile hypertension (ICD-10 - I10) stable, will continue currnt regiment 04/07/2024 Fatty liver disease, nonalcoholic (ICD-10 - K76.0) stable, will continue to monitor 10/12/2024 Prostatism (ICD-10 - N40.0) stable, will continue to monitor 10/12/2024 High triglycerides (ICD-10 - E78.1) stable, will continue current regiment and will continue to monitor 10/12/2024 Colon cancer screening (ICD-10 - Z12.11) guaiac negative 10/12/2024 Depression screening (ICD-10 - Z13.31) negative screen Plan Of Treatment Pending Test Test Name Order Date Electrocardiogram (EKG) 05/30/2017 Electrocardiogram (EKG) 06/05/2019 CT ABD & PELVIS WITH CONTRAST 12/06/2023 XR CHEST 2 VIEW PA & LAT 05/04/2011 XR CHEST 2 VIEW PA & LAT 08/31/2016 XR GI SERIES 02/27/2016 US CAROTID BILATERAL DOPPLER 10/12/2024 CA echo transthoracic complete 3 Next Appt Details Provider Name:Asim Clark ier, 04/06/2025 07:30:00 AM, [address] [place] [address], [address], [phone], Provider Name:Asim Clark ier, 04/13/2025 10:00:00 AM, [address] [place] [address], [address], [phone], Provider Name:Asim Clark ier, 10/07/2025 07:15:00 AM, [address] [place] [address], [address], [phone], Provider Name:Asim Clark ier, 10/14/2025 09:30:00 AM, [address] [place] [address], [address], [phone], Insurance Providers Payer Name Payer Address Payer Phone Subscriber Number Group Number Insured Name Patient Relationship to Insured Coverage Start Date Coverage End Date MEDICARE NHIC [address] [place] [address] [id number] Tyshawn Pino Self - patient is the insured [employer] [place] [address] [place] [phone] [id number] Tyshawn Pino Self - patient is the insured Medical (General) History Medical History History ICD Code colonoscopy 2010. negative b y Dr Lomas repeat in 10 years(2020); Colonoscopy 08/31/21 due in 5 yrs upper endoscopy in 3 years Surgical History Surgery Date(Month/Year) EGD by Dr. Alysia Lomas 09/2016 Rt Foot Cheilectomy, 1st Metatarsophalan geal Joint 06/2019
== END 2024-11-26 11:58 | disposition home or self-care (01) ==
LOC: HO.HVS 11:04
PROVIDERS: PCP Internal Medicine; Visit Provider Surgery Vascular Surgery
DX: I65.23 Occlusion and stenosis of bilateral carotid arteries (principal)
CPT/HCPCS: 99204; G2211

== ENCOUNTER → 2024-11-26 11:03 | Outpatient (BNVA) | payer MEDICARE, SELFPAY | PROVIDERS: PCP Internal Medicine; Visit Provider Surgery Vascular Surgery | DX: I65.23 Occlusion and stenosis of bilateral carotid arteries (principal) | CPT/HCPCS: 99202 ==

== ENCOUNTER 2025-04-06 11:04 | Outpatient (REF) | payer MEDICARE, SELFPAY ==
--- OUTSIDE RECORDS SUMMARY | 2024-10-12 05:30 | XMS_ITS ---
Author Organization Asim Kim MD Address [address] [place] [phone] Care Team Providers Care Economics Faculty Member Name Role Phone Asim Kim Primary Care [...] Date Provider Diagnosis Asim Kim MD [address] [facility] [address] [place], [place] [phone] 10/12/2024 Asim Kim Thrombocytopenia D69 .6 ; [...] R09.89) pending diagnostic testing/ order faxed to [facility] [place] [facility] dept 10/12/2024 Labile hypertension (ICD-10 [...] pe nding diagnostic testing/ order faxed to [facility] dept Labile hypertension stable, will continu [...] Up: 6 Months, Reason: Provider Name:Asim leung, 04/13/2025 10:00:00 AM, [address] [place] [address], [address], [phone], Provider Name:Asim leung, 10/07/2025 07:15:00 AM, [address] [place] [address], [place] [address], [place], [place], [phone], Provider Name:Asim leung, 10/14/2025 09:30:00 AM, [address] [place] [address], [place] [address], [place], [place], [phone], Progress Notes * Tyshawn GRAHAM MDOB:11/1954 (69 yo M)Acc No.[id number]:10/12/2024 Progress Notes Patient: Tyshawn BURT Provider: Maria Isabel Kim MD :1955 A ge:69 Y S ex:Male Date:10/12/2024 Address:[address] [place] [address] , Mina [place]ney, [id number] Subjective: * Chief Complaints: * A nnual [...] x1 cat x2. Travel outside of the [place]: no. * Medications: T akingMetoprolol Succinate [...] mg/dL Urine Blood Negative Negative - Specific [place] - Urine 1.020 1.005-1.025 - Urine Protein [...] Urine 0-2 0-2 - /LPF L ab:Comprehensive [place]. Panel Fast (Order Date - 10/05/2024) (Collection [...] Notes: pending diagnostic testing/ order faxed to [facility] dept 4. L abile hypertension [...] Procedure Codes: 8 2270 TEST FOR BLOOD, [id number] Complex e/m visit add on * Preventive Medicine: Counseling: C are goal follow-up plan: Lobo multaninseling for abnormal BMI provided?Yes, Leonard cobos Normal BMI Follow-up Maria Isabel wilkinson encouragement to exercise. * Follow Up: 6 Months * * Sign off status: Completed true * Provider: Maria Isabel Kim MD Date: 0 10/12/2024 Generated for Mikaela reaves/Shailesh/eTransmitting on: 0 04/06/2025 01:46 PM EDT History and Physical Notes * HPI (History of Present Illness) Category Sub-Category Detail Notes Category Not es Symptom(s) patient is a 69 yomale here for [facility] visit with review of recent labs and [...] Total Score: 0 Interpretation and Intervention Depression Bhupendrae susan Findings: Negative Follow-Up for Depression: : review [...] had two or more falls in the year?: No Communication Needs Communication Needs Does [...]
--- OUTSIDE RECORDS SUMMARY | 2024-11-12 06:00 | XMS_ITS ---
Author Organization Asim Kim MD Address [address] [place] [phone] Care Team Providers Care Plaster Die Maker Name Role Phone Asim Kim Primary Care Provider [phone] Allergies No Known Allergies Reason For Referral [...] Status Risk Notes Problem Carotid artery disease ([id number]) Carotid artery disease (I77.9) Active confirmed Vital Signs Blood pressure systolic 116 mm Hg 11/13/19 25 Blood pressure diastolic 62 mm Hg 025 Height 66.25 in 11/12/2024 Weight 167 lbs 11/12/2024 BMI 26.75 kg/m2 11/12/2024 weight is down 3 pounds [facility] e 10-12-24 Encounters Encounter Location Date Provider Diagnosis Asim Kim MD [address] [place] [address] [place] [phone] 11/12/2024 Asim Kim Carotid artery disease I77.9 [...] GONZALEZ Next Appt Details Provider Name:Asim leung, 04/13/2025 10:00:00 AM, [address] [place] [address], [address], [phone], Provider Name:Asim leung, 10/07/2025 07:15:00 AM, [address] [place] [address], [address], [place], [phone], Provider Name:Asim Clark ier, 10/14/2025 09:30:00 AM, [address] [facility], [address], [place], [phone], Progress Notes * Tyshawn GRAHAM MDOB:11/1954 (69 yo M)Acc No.[id number]:11/12/2024 Patient: Leonard BRYANBENJAMINTysahwn HALL Provider: Maria Isabel Kim MD :1955 A ge:69 Y S ex:Male Date:11/12/2024 Address:[address] [place] [address] , [place], [phone] Subjective: * Chief Complaints: * C BACK US * HPI: S ymptom(s): patient is a 69 yo male here to discuss recent US. * ROS: G eneral/Constitutional: Denies C hills. D enies F atigue. D enies F ever. D enies H eadache. E NT: Denies S ore throat. R espiratory: Denies C [...] * Provider: Maria Isabel Kim MD Date: 11/12/2024 Generated for Mikaela reaves/Shailesh/Danisitting on: 04/06/2025 01:46 PM EDT History and Physical [...]
--- OUTSIDE RECORDS SUMMARY | 2024-11-24 05:22 | XMS_ITS ---
Author Organization Asim Kim MD Address [address] [place] [phone] Care Team Providers Care Electrical Products Sales Engineer Name Role Phone Asim Kim Primary Care Provider REASON FOR VISIT tick bite Medications Medication SIG (Take, Route, Frequency, Duration) Notes Start Date End Date Status Doxycycline Hyclate 100 MG 1 capsule Ora lly twice a day for 1 days 11/24/2024 Active Encounters Encounter Location Date Provider Diagnosis Asim Kim MD [address] [facility] [address] [place] [phone] 11/24/2024 Asim Kim Plan Of Treatment Medication Medication Name Sig Start Date Stop Date Notes Doxycycline Hyclate 100 MG 1 capsule Ora lly twice a day for 1 days 11/24/2024 Next Appt Details Provider Name:Asim leung, 04/13/2025 10:00:00 AM, [address] [place] [address] Drive, [address], [place], [place], [phone], Provider Name:Asim Clark ier, 10/07/2025 07:15:00 AM, [address], [address], [place], [phone], Provider Name:Asim Clark ier, 10/14/2025 09:30:00 AM, [address], [address], [place], [phone], Progress Notes * Tyshawn GRAHAM MDOB:11/1954 (69 yo M)Acc No.[id number]:11/24/2024 Patient: Leonard Tyshawn CAMARGO :1955 A ge:69 Y S ex:Male Address:[address] [place] [address] , [place] [address] * Refills Start Doxycycline Hyclate Capsule, 100 MG, Orally, 2 Capsule, 1 capsule, twice a day, 1 days, Refills=3 * true * Date: Generated for Mikaela reaves/Shailesh/eTbhaktismitting on: 0 04/06/2025 01:46 PM EDT
--- OUTSIDE RECORDS SUMMARY | 2025-02-22 11:15 | XMS_ITS ---
Author Organization Asim Kim MD Address [address] [place] [phone] Care Team Providers Care Technology Integration Specialist Name Role Phone Asim Kim Primary Care Provider [phone] Allergies No Known Allergies REASON FOR VISIT poison richy on his ankles x 1 week and arms, went to Urgent Care in [place] was given a cream Medications Medication SIG [...] kg/m2 02/22/2025 weight is down 2 pounds [facility] e 11-12-24 Encounters Encounter Location Date Provider Diagnosis Asim Kim MD [address] [place] [phone] 02/22/2025 Asim Kim Poison richy dermatitis L23.7 [...] 02/22/2025 Next Appt Details Provider Name:Asim leung, 04/13/2025 10:00:00 AM, [address] [place] [address], [phone], Provider Name:Asim leung, 10/07/2025 07:15:00 AM, [address] [place] [address], [address], [phone], Provider Name:Asim leung, 10/14/2025 09:30:00 AM, [address] [place] [address], [phone], Progress Notes * Tyshawn GRAHAM MDOB:11/1954 (70 yo M)Acc No.[id number]:02/22/2025 Progress Notes Patient: eLonard Tyshawn CAMARGO Provider: Maria Isabel Kim MD :1955 A ge:70 Y S ex:Male Date:02/22/2025 Address:[address] [place] [address] Rd , [place], [phone] Subjective: * Chief Complaints: * P oison richy on his ankles x 1 week and armswent to Urgent Care in [place] was given a cream * HPI: S ymptom(s): patient is a 70 yo male here with complaint og poison richy on bilateral ank;le for one week. was seen at Urgent Care in [place] and given cream. * ROS: G eneral/Constitutional: [...] MD Date: 0 02/22/2025 Generated for Mikaela reaves/Shailesh/Danisitting on: 0 04/06/2025 01:46 PM EDT History and Physical Notes * HPI (History of Present Illness) Category Sub-Category Detail Notes Category Not es Symptom(s) patient is a 70 yo male here with complaint og poison richy on bilateral ank;le for one week. was seen at Urgent Care in [place] and given cream Examination Category Sub-Category Detail Notes Category Not es General Examination GENERAL APPEARANCE: alert, w ell hydrated, in no distress SKIN: abnormal with rash o hans his lower legs and arms
--- OUTSIDE RECORDS SUMMARY | 2025-04-06 03:30 | XMS_ITS ---
Author Organization Asim Kim MD Address [address] [place] [phone] Care Team Providers Care Lunch Counter Manager Name Role Phone Asim Kim Primary Care Provider REASON FOR VISIT fasting lipids Immunizations Vaccine Route Administration Date Status Comme nts Influenza High Dose IM Intramuscular 04/06/2025 Administer ed Encounters Encounter Location Date Provider Diagnosis Asim Kim MD [address] [place] [phone] 04/06/2025 Asim Kim High triglycerides E78.1 and Encounter for administration of vaccine Z23 Assessments Encounter Date Diagnosis (ICD Code) Assessment Notes Treatment Notes Treatment Clinical Notes Section Notes 04/06/2025 High triglycerides (ICD-10 - E78.1) 04/06/2025 Encounter for administration of vaccine (ICD-10 - Z23) Plan Of Treatment Pending Test Test Name Order Date Liver Panel 04/06/2025 Lipid Panel with Reflex 04/06/2025 Next Appt Details Provider Name:Asim Clark ier, 04/13/2025 10:00:00 AM, [address], [address], [place], [place], [phone], Provider Name:Asim Clark ier, 10/07/2025 07:15:00 AM, [address], [address], [place], [place], [phone], Provider Name:Asim Clark ier, 10/14/2025 09:30:00 AM, [address], [address], [place], [phone], Progress Notes * Tyshawn GRAHAM MDOB:11/1954 (70 yo M)Acc No.[id number]:04/06/2025 Progress Note Patient: Tyshawn BURT Joey Provider: Maria Isabel Kim MD :1955 A ge:70 Y S ex:Male Date:04/06/2025 Address:[address] [place] [address] , [id number] Subjective: * Chief Complaints: * 1 . [...] * Procedure Codes: 3 6415 VENIPUNCT, ROUTINE*, 57378 FLU VACC PRSV FREE INC ANTIG, G0008 ADMN FLU VAC NO FEE SCHED SAME DAY * * The named appointment provid er may or may not be the originator of this progress note, and it is not deemed complete until electronically signed by the appointment provider. Sign off status: Pending * Provider: Maria Isabel Kim MD Date: 04/06/2025 Generated for Alesiai jean paul/Shailesh/eTransmitting on: 04/06/2025 01:46 PM EDT
[2025-04-06 12:19] LABS: Alanine Aminotransferase 40 U/L (0-40); Albumin Level 4.3 g/dL (3.5-5.0); Alkaline Phosphatase 65 U/L (39-117); Aspartate Amino Transferase 33 U/L (5-37); Cholesterol 114 mg/dL (<200); HDL Cholesterol 54 mg/dL (>40); Total Protein 6.5 g/dL (6.5-8.0); Triglycerides 60 mg/dL (<150)
--- OUTSIDE RECORDS SUMMARY | 2025-04-06 13:46 | XMS_ITS | Patient Health Record ---
Author Organization [facility] Address [address] [facility] [place] [address] Care Team Providers Care Pre Sales Technical Consultant Name Role Phone Asim Kim MD Primary Care Provider Shanda Calderon Unavailable [phone] Reason For Referral No Information Medications Medication SIG (Take, Route, Frequency, Duration) Notes Start Date End Date Status Metoprolol Succinate ER Active Neurontin 300 MG 1 capsule Orally Onc e a day at night; Duration: 14 days 06/10/2019 Not-Taking Ibuprofen 800 MG 1 tablet Orally Thre e times a day; Duration: 30 day(s) 06/10/2019 Not-Taking Feldene 20 MG 1 capsule with food Orally Once a day; Duration: 30 day(s) 04/28/2019 Not-Taking Physical Therapy . . . 2-3x/week; Durat ion: 3-4 weeks 07/14/2019 Active Social History Tobacco Use: [...] primary osteoarthritis of the ankle and/or foot ([id number]) Primary osteoarthrit is, right ankle and foot (M19.071) Active confirmed Plan Of Treatment Pending Test Test Name Order Date X ray : Foot, right 3V 04/28/2019 X ray : Foot, right 3V 07/07/2019 Insurance Providers Payer Name Payer Address Payer Phone Subscriber Number Group Number Insured Name Patient Relationship to Insured Coverage Start Date Coverage End Date [facility] [address] [place] [address] [id number] Tyshawn Galvez lt Self - patient is the insured Medical (General) History Medical History History ICD Code Headaches/Migraines High blood pressure Surgical History Surgery Date(Month/Year) appendectomy Decompressional Osteotomy R w/faith as nis 07/02/2019
[2025-04-06 13:47] LABS: Reflex LDLD? No
--- OUTSIDE RECORDS SUMMARY | 2025-04-06 13:47 | XMS_ITS | Clinical Summary ---
Author Organization [facility] Address [address] [place] [address] Care Team Providers Care Diesel Truck Crane Operator Name Role Phone Unavailable Primary Care Provider [...] 01/16/2006 Zoster Vaccines (1 of 2) 01/16/2006 Depression Screening 07/15/2024 COVID-19 Vaccine (1 - 2023-2 5 season) 2025 Influenza Vaccine (#1) 2025 RSV Immunization Adult Patie nts (1 [...]
--- OUTSIDE RECORDS SUMMARY | 2025-04-06 13:47 | XMS_ITS | Clinical Summary ---
Author Organization [facility] Address [address] [place] [phone] Phone Care Team Providers Care Prototype Machinist Name Role Phone Asim Kim MD Primary Care Provider Allergies No known active allergies Medications Medication-Free Text Unknown HTN med Active atorvastatin (LIPITOR) 20 MG tablet Take 1 tablet by mouth every morning. 5 Active metoprolol succinate (TOPROL-XL) 50 MG 24 hr tablet Take 1 tablet by mouth every morning. 5 Active naproxen (NAPROSYN) 500 MG tablet TAKE 1 TABLET BY MOUTH EVERY DAY WITH FOOD OR MILK NEEDED FOR 90 DAYS 5 Active tamsulosin (FLOMAX) 0.4 mg Cap TAKE 1 CAPSULE BY MOUTH EVERY DAY DIRECTED 90 5 Active hydrocortisone 2.5 % ointment Apply topically 2 (two) times a day. Apply twice daily to affected areas. Do not use on face or genitals. Do not use for longer than 2 weeks. 28.35 g 5 Active Encounters Date Type Department Care Team Description 02/20/2025 9:20 AM EDT Office Visit [facility] [address] [place] [address] Oralia Cantrell PA-C Allergic contact dermatitis due to urushiol from [facility] richy (Primary Dx) from Last 3 Months Social History Tobacco Use Types Packs/Day Years Used Date Smoking Tobacco: Never Smokeless Tobacco: Never Alcohol Use Standard Drinks/Week Comments Yes 0 (1 standard drink = 0.6 oz pur e alcohol) socially Education Answer Date Recorded Are you interested in more education? Not on erick e 11/09/2022 Are you concerned about learning? Not on file 11/09/2022 No 11/09/2022 No 11/09/2022 Digital Access Answer Date Recorded No 12/10/2022 No 12/10/2022 Reliable internet access at home? Not on file 12/10/2022 Device with a working camera? Not on file Intimate Partner Violence Answer Date R ecorded Are you denied basic needs s uch as food, clothing, or medical care? No 02/15/2023 In the past 12 months have y ou been in a relationship with a person who hurts, threatens, or tries to control you? No 02/15/2023 Are you denied basic needs s uch as food, clothing, or medical care? No 02/15/2023 In the past 12 months have y ou been in a relationship with a person who hurts, threatens, or tries to control you? No 02/15/2023 Sex and Gender Information Value Date Recorded Sex Assigned at Male 01/25/2019 1:59 PM EDT Legal Sex Male 9:54 PM EDT Gender Identity Male 01/25/2019 1:59 PM EDT Sexual Orientation Straight 01/25/2019 1: 59 PM EDT Last Filed Vital Signs Vital Sign Reading Time Taken Comments Blood Pressure 144/67 02/20/2025 9:48 AM EDT Pulse 62 02/20/2025 9:48 AM EDT Temperature 36.3 C (97.3 F) 02/20/2025 9:48 AM EDT Respiratory Rate 20 10/26/2024 11:56 AM EDT Oxygen Saturation 98% 02/20/2025 9:48 AM EDT Inhaled Oxygen Concentration - - Weight 77.1 kg (170 lb) 10/26/2024 11:56 AM EDT Height 167.6 cm (5' 6 ) 10/26/2024 11:56 AM EDT Body Mass Index 27.44 10/26/2024 11:56 AM EDT Plan of Treatment Health Maintenance Due Date Last Done Comments LIPID PANEL 1955 DEPRESSION SCREENING 1968 HEPATITIS C SCREENING 01/16/1974 SCREENING FOR DIABETES 01/16/1991 COLOGUARD 01/16/2001 COLONOSCOPY 01/16/2001 COLORECTAL CANCER SCREENING 01/16/2001 FIT TEST 01/16/2001 FOBT 01/16/2001 SIGMOIDOSCOPY 01/16/2001 VIRTUAL COLONOSCOPY 01/16/2001 PNEUMOCOCCAL VACCINES (50+ years) (3 of 3 - PCV20 or PCV21) 01/31/2025 02/01/2020, 12/03/2017 INFLUENZA VACCINE (#1) 2025 4, 04/11/2023, 05/30/2022, Additional history exists COVID-19 VACCINE (2024- season) 2025 05/16/2023, 05/16/2023, 05/02/2022, Additional history exists RSV VACCINE (1 - 1-dose 75+ series) 01/16/2031 Adult Td,Tdap Booster 03/15/2032 03/15/2022 ZOSTER VACCINES Completed 05/30/2022, 05/26/2020 SMOKING STATUS SCREENING (Once After 26 Yrs) Completed 10/26/2024 HEPATITIS A VACCINES Aged Out No long er eligible based on patient's age to complete this topic HIB VACCINES Aged Out No longer eligi ble based on patient's age to complete this topic MENINGOCOCCAL VACCINES (ACWY) Aged Out No longer eligible based on patient's age to complete this topic MENINGOCOCCAL VACCINES (B) Aged Out N o longer eligible based on patient's age to complete this topic Medical Devices Not on file Insurance MEDICARE PART A & B [employer] MEDEX SUPPLEMENT MEDICARE PART A & B [employer] MEDEX SUPPLEMENT MEDICARE PART A & B [employer] MEDEX SUPPLEMENT MEDICARE PART A & B [employer] MEDEX SUPPLEMENT MEDICARE PART A & B [employer] MEDEX SUPPLEMENT MEDICARE PART A & B [employer] MEDEX SUPPLEMENT [employer] Care Teams Prototype Machinist Relationship Specialty Start Date End Date Asim Kim MD [address] [place] [address] [place] [address] PCP - General 07/18/17 Additional Source Comments The information contained in this document represents components of the legal health record. It is not the complete legal health record.[facility]
--- OUTSIDE RECORDS SUMMARY | 2025-04-06 13:47 | XMS_ITS | Patient Health Record ---
Author Organization Asim Kim MD Address [address] [place] [phone] Care Team Providers Care Industrial Engineering Analyst Name Role Phone Asim Kim Primary Care Provider Allergies No Known Allergies Results Component Value Reference Range Notes Complete Blood Count Auto Di ff Reviewed date:10/05/2024 05:14:43 PM Interpretation: Performing Lab:[facility], [address] [place] [phone] Notes/Report: White Blood Count 4.5 4.8-10.8 X10*3/uL [...] NRBC Abs Auto 0.000 0.0-0.012 X10*3/uL Comprehensive [place]. Panel Fa st Reviewed date:10/05/2024 12:33:28 PM Interpretation: Performing Lab:[facility], [address] [place] [phone] Notes/Report: Sodium 140 135-145 mmol/L Potassium 4.0 [...] Panel Reviewed date:10/05/2024 12:34:41 PM Interpretation: Performing Lab:[facility], [address] [place] [phone] Notes/Report: Triglycerides 179 <150 mg/dL Desirable Triglyceride: [...] (Free>4and<10) Reviewed date:10/05/2024 12:33:59 PM Interpretation: Performing Lab:[facility], [address] [place] [phone] Notes/Report: PSA,Total (Free>4and<10) 1.16 0.00-4.00 ng/mL A [...] Random Reviewed date:10/05/2024 12:34:54 PM Interpretation: Performing Lab:[facility], [address] [place] [phone] Notes/Report: Creatinine Urine 115.06 Microalbumin Urine 5.0 Microalbum/Creatinine Ratio Ur 4.3 <30 ug/mg cr Albumin/Creatinine Ratio Reference Ranges: Normal: < 30 ug/mg creatinine Microalbuminuria: 30 - 300 ug/mg creatinine Clinical Albuminuria: > 300 ug/mg creatinine Hemoglobin A1c Reviewed date:10/05/2024 12:33:52 PM Interpretation: Performing Lab:[facility], [address] [place] [phone] Notes/Report: Hemoglobin A1c % 5.2 <6.0 % [...] average glucose, using the formula of the D5C-Swbxwmr Average Glucose study (ADAG), Diabetes Care, Vol.31,#8, Feb. 2007 UA ClnCatch+Micro w/rflx Cul t Reviewed date:10/05/2024 12:45:01 PM Interpretation: Performing Lab:[facility], [address] [place] [phone] Notes/Report: Urine, Clean Catch Color Urine Yellow Appearance Urine Clear PH 5.5 5.0-9.0 Glucose Urine UA Negative Negative mg/dL Urine Blood Negative Negative Specific [place] - Urine 1.020 1.005-1.025 Urine Protein Negative [...] Notes/Report: Negative Occult Blood, Stool, Guaiac Neg US carotid duplex BI Reviewed date:11/12/2024 12:14:44 PM Interpretation:YANY 11/12 Performing Lab: Notes/Report: [address] [address] Ultrasound Report Signed Patient: Tyshawn Langford MR#: [id number] : 1955 Acct:[id number] Age/Sex: 69 / M ADM Date: 11/05/24 Loc: .US Attending Dr: Asim Kim MD Ordering Physician: Asim Kim MD Date of Service: 11/05/24 Procedure(s): US carotid duplex BI Accession Number(s): [id number] cc: Asim Kim MD EXAMINATION: BILATERAL CAROTID [...] Armen Enciso MD 11/06/2024 01:45 PM EDT Dictated By: Armen Enciso MD Signed By: <Electronically signed by Armen Enciso MD in OV> 11/06/24 1345 DD/ 1400 TD/TT: 11/05/24 1409 Supervisor Hard Candy: [address] [address] Ultrasound Report Signed Patient: Tyshawn Langford MR#: [id number] : 1955 Acct:[id number] Age/Sex: 69 / M ADM Date: 11/05/24 Loc: HO.US Attending Dr: Asim Kim MD Ordering Physician: Asim Kim MD Date of Service: 11/05/24 Procedure(s): US carotid duplex BI Accession Number(s): [id number] cc: Asim Kim MD EXAMINATION: BILATER AL [...] Armen Enciso MD 11/06/2024 01:45 PM EDT Dictated By: Armen Enciso MD Signed By: <Electronically signed by Armen Enciso MD in OV> 11/06/24 1345 DD/ 1400 TD/TT: 11/05/24 1409 Supervisor Hard Candy: Laith Parks Reviewed date:04/06/2025 12:26:11 PM Interpretation: Performing Lab:[facility], [address] [place] [phone] Notes/Report: Laith Parks See Note Specimen held untested for 24 hours; Call to request Chemistry testing. Reason For Referral Reason Carotid artery disea se Diagnosis 1 Carotid artery disea se (I77.9) Referral Organization Asim Kim MD Referring Provider First Name Asim Referring Provider Last Name Julio Referring Provider Speciality Internal M edicine Referred Provider JACKSON MUKHERJEE Referred Provider Specialty Vascular [place] [facility] [...] 4 days for 14 days 02/22/2025 Active Atorvastatin Calcium 20 MG TAKE 1 TABLET BY MOUTH EVERY DAY FOR 90 DAYS for 90 Active Tamsulosin HCl 0.4 MG TAKE 1 CAPSULE BY MOUTH EVERY DAY DIRECTED 90 for 90 Active Multi For Him 50+ - [...] NEEDED FOR 90 DAYS for 90 Active Immunizations Vaccine Route Administration Date Status Comme nts Flu Vaccine Unknown 04/16/2013 Administered Work Flu Vaccine Unknown 03/20/2013 Administered At work PPSV23 (Pnemovax) IM Intramuscular 12/03/2017 Administered Fluarix Quadrivalent Unknown 05/13/2018 Administered At work Fluarix Quadrivalent IM Intramuscular 05/19/2019 Administe red Prevnar 13 IM Intramuscular 02/01/2020 Administered Fluarix Quadrivalent Unknown 05/26/2020 Administered [facility] Covid Vaccine Unknown 10/02/2020 Administered Moderna Covid Vaccine Unknown 10/30/2020 Administered Moderna SARS-COV-2 Pfizer Unknown 06/12/2021 Administered Jus hong's Fluarix Quadrivalent IM Intramuscular 07/03/2021 Administdorcas Florez Unknown 05/30/2022 Administered [facility] Influenza High Dose Unknown 05/30/2022 Administered [facility] Influenza High Dose IM Intramuscular 04/11/2023 Administer ed SARS-COV-2 Moderna Unknown 05/16/2023 Administered [facility] Influenza High Dose IM Intramuscular 04/03/2024 Administer ed Influenza High Dose IM Intramuscular 04/06/2025 Administer ed Fluarix Quadrivalent Unknown 04/09/2016 Refused [...] Problem Status W/U Status Risk Notes Problem 416630638 Thrombocytopenia (D69.6) Active confirmed Problem 16568028 Hemoptysis (R04.2) Active confirmed Problem 71700461 Prostatism (N40.0) Active confirmed Problem Carotid artery disease (731966988) Carotid artery disease (I77.9) Active confirmed Problem 073749124 Diverticulitis (K57.92) Active confirmed Problem 42564130 Precordial pain (R07.2) Active confirmed Problem 10305128 Essential hypertension (I10) Active confirmed Problem 89247594 Labile hypertens ion (I10) Active confirmed Problem 27840664 Skin lesion (L98.9) Active confirmed Problem 582916734 High triglycerid es (E78.1) Active confirmed Problem 185827030 Mild aortic sten osis (I35.0) Active confirmed Problem 871763754 Neutropenia, unspecified type (D70.9) Active confirmed Problem 539820036 Prediabetes (R73.03) Active confirmed Problem 54028604 Aortic atherosclerosis (I70.0) Active confirmed Problem 810583994 Mild mitral regurgitation (I34.0) Active confirmed Problem 5736139517 Fatty liver dise ase, nonalcoholic (K76.0) Active confirmed Vital Signs Blood pressure diastolic 62 mm Hg 11/12/2024 rhonda ght is down 3 pounds since 10-12-24 Height 66.25 in 02/22/2025 weight is down 2 pounds since 11-12-24 Blood pressure systolic 116 mm Hg 11/12/2024 weig ht is down 3 pounds since 10-12-24 Weight 165 lbs 02/22/2025 weight is down 2 pounds since 11-12-24 BMI 26.43 kg/m2 02/22/2025 weight is down 2 pounds since 11-12-24 Encounters Encounter Location Date Provider Diagnosis Asim Kim MD [address] [place] [id number] 10/05/2024 Asim Kim Prostatism N40.0 ; Labile hypertension I10 and Prediabetes R73.03 Asim Kim MD [address] [place] [id number] 04/06/2025 Asim Kim High triglycerides E78.1 and Encounter for administration of vaccine Z23 Asim Kim MD [address] [place] [id number] 04/07/2024 Asim Kim Prediabetes R73.03 ; Essential hypertension I10 ; High triglycerides E78.1 ; Aortic atherosclerosis I70.0 and Fatty liver disease, nonalcoholic K76.0 Asim Kim MD [address] [place] [id number] 06/29/2024 Asim Kim Acute COVID-19 U07.1 Asim Kim MD [address] [place] [id number] 10/12/2024 Asim Kim Thrombocytopenia D69 .6 ; Mild aortic stenosis I35.0 ; Carotid bruit, unspecified laterality R09.89 ; Labile hypertension I10 ; Prostatism N40.0 ; High triglycerides E78.1 ; Colon cancer screening Z12.11 and Depression screening Z13.31 Asim Kim MD [address] [place] [id number] 11/12/2024 Asim Kim Carotid artery disea se I77.9 Asim Kim MD [address] [place] [id number] 02/22/2025 Asim Kim Poison richy dermatiti s L23.7 Asim Kim MD [address] [place] [id number] 11/24/2024 Asim Kim Assessments Encounter Date Diagnosis (ICD Code) Assessment Notes Treatment Notes Treatment Clinical Notes Section Notes 10/05/2024 Prostatism (ICD-10 - N40.0) 04/06/2025 High triglycerides (ICD-10 - E78.1) 04/06/2025 Encounter for administration of vaccine (ICD-10 - Z23) 04/07/2024 Prediabetes (ICD-10 - R73.03) has good [...] recent US with patient, referral to dr mukherjee. 02/22/2025 Poison richy dermatitis (ICD-10 - L23.7) 10/05/2024 Labile hypertension (ICD-10 - I10) 04/07/2024 High triglycerides (ICD-10 - E78.1) stable, at goal, willcontinue current regiment 10/12/2024 Carotid bruit, unspecified laterality (ICD-10 - R09.89) pending diagnostic testing/ order faxed to [facility] CS dept 10/05/2024 Prediabetes (ICD-10 - R73.03) 04/07/2024 Aortic [...] SERIES 02/27/2016 US CAROTID BILATERAL DOPPLER 10/12/2024 Liver Panel 04/06/2025 Lipid Panel with Reflex 04/06/2025 CA echo transthoracic complete 3 Next Appt Details Provider Name:Asim leung, 04/13/2025 10:00:00 AM, [address] [place] [address], [address], [phone], Provider Name:Asim Clark ier, 10/07/2025 07:15:00 AM, [address] [place] [address], [place] [address], [place], [place], [phone], Provider Name:Asim Clark ier, 10/14/2025 09:30:00 AM, [address] [place] [address], [place] [address], [place], [place], [phone], Insurance Providers Payer Name Payer Address Payer Phone Subscriber Number Group Number Insured Name Patient Relationship to Insured Coverage Start Date Coverage End Date MEDICARE [employer] [address] [place] [address] [id number] Tyshawn Pino Self - patient is the insured [employer] [place] [address] [place] [phone] [id number] AnirudhTyshawn lackey Self - patient is the insured Medical (General) History Medical History History ICD Code colonoscopy 2010. negative b y Dr Lomas repeat in 10 years(2020); Colonoscopy 08/31/21 due in 5 yrs upper endoscopy in 3 years Surgical History Surgery Date(Month/Year) EGD by Dr. Alysia Lomas 09/2016 Rt Foot Cheilectomy, 1st Metatarsophalan geal Joint 06/2019
== END 2025-04-06 11:05 | disposition home or self-care (01) ==
LOC: HO.LNP 11:04
PROVIDERS: Visit Provider Internal Medicine
DX: E78.1 Pure hyperglyceridemia (principal)
CPT/HCPCS: 80061; 80076

== ENCOUNTER 2025-05-24 09:43 | Outpatient (REF) | payer MEDICARE, SELFPAY ==
--- NOTE | ~2025-05-24 | US_ITS ---
EXAMINATION: US EXTRACRANIAL CAROTID DUPLEX, BILATERAL CLINICAL INFORMATION: Hypertension, former tobacco use. COMPARISON: 11/05/2024 TECHNIQUE: Real-time ultrasound and Doppler techniques (integrating B-mode 2-D vascular images, Doppler spectral analysis and color-flow Doppler imaging) were utilized to interrogate the extracranial carotid arteries, the vertebral arteries and proximal subclavian arteries bilaterally. The degree of stenosis is determined by criteria similar to NASCET. FINDINGS: Right Side: 1. There is mild atherosclerotic plaque seen in the bifurcation/proximal ICA region. 2. The common carotid artery PSV proximally is 90 cm/s and distally 78 cm/s. 3. The proximal internal carotid artery velocities are 67 cm/s systolic and 19 cm/s diastolic. 4. The proximal external carotid artery PSV is 139 cm/s. 5. The vertebral artery shows antegrade flow. 6. The subclavian artery waveforms are triphasic. ICA/CCA ratio 0.7 Left Side: 1. There is mild atherosclerotic plaque seen in the bifurcation/proximal ICA region. 2. The common carotid artery PSV proximally is 80 cm/s and distally 68 cm/s. 3. The proximal internal carotid artery velocities are 161 cm/s systolic and 53 cm/s diastolic. 4. The proximal external carotid artery PSV is 99 cm/s. 5. The vertebral artery shows antegrade flow. 6. The subclavian artery waveforms are triphasic. ICA/CCA ratio 2.0 US/US carotid duplex BI IMPRESSION: 1. RIGHT: No hemodynamically significant stenosis 2. LEFT: Suspected hemodynamically significant stenosis 50-79%. 3. There is no change in the category severity of disease when compared to the previous study. Electronically signed by: Evan Posadas MD 05/24/2025 01:07 PM [facility]
--- OUTSIDE RECORDS SUMMARY | 2025-05-24 11:08 | XMS_ITS | Clinical Summary ---
Author Organization [facility] ity Address [address] [place] [address] Care Team Providers Care Blanket Inspector Name Role Phone Unavailable Primary Care Provider [...]
--- OUTSIDE RECORDS SUMMARY | 2025-05-24 11:08 | XMS_ITS | Clinical Summary ---
Author Organization [facility] Address [address] [place] [phone] Phone Care Team Providers Care Probate Lawyer Name Role Phone Asim Kim MD Primary [...] than 2 weeks. 28.35 g 5 Active Social History Tobacco Use Types Packs/Day Years [...] 01/31/2025 02/01/2020, 12/03/2017 INFLUENZA VACCINE (#1) 2025 , 04/11/2023, 05/30/2022, Additional history exists COVID-19 VACCINE ( - 2024- season) 2025 05/16/2023, 05/16/2023, 05/02/2022, Additional history [...] file [place] [id number] [facility] MEDEX SUPPLEMENT MEDICARE PART A & B [employer] MEDEX SUPPLEMENT MEDICARE PART A & B [employer] MEDEX SUPPLEMENT MEDICARE PART A & B Member Subscriber Plan / Payer ( fective 2022-) Name:Tyshawn Langford Member ID:[id number] Relation to Subscriber:Self Name:Tyshawn Langford Subscriber ID:[id number] Payer ID:[id number] Group ID:Not on file Type:Medicare Address: [employer] [facility] [address] [facility] MEDEX SUPPLEMENT MEDICARE PART A & B [employer] MEDEX SUPPLEMENT MEDICARE PART A & B [employer] MEDEX SUPPLEMENT [employer] Care Teams Probate Lawyer Relationship Specialty Start Date End Date Asim Kim MD [address] [place] [address] [place] [address] PCP - General 07/18/17 Additional Source Comments The information contained in this document represents components of the legal health record. It is not the complete legal health record.[facility]
== END 2025-05-24 09:44 | disposition home or self-care (01) ==
LOC: HO.US 09:43
PROVIDERS: PCP Internal Medicine; Visit Provider Surgery Vascular Surgery
DX: I65.23 Occlusion and stenosis of bilateral carotid arteries (principal)
CPT/HCPCS: 93880

== ENCOUNTER → 2025-05-24 09:45 | Outpatient (BNV) | payer MEDICARE, SELFPAY | PROVIDERS: PCP Internal Medicine; Visit Provider Radiology Diagnostic Radiology | DX: I65.23 Occlusion and stenosis of bilateral carotid arteries (principal) | CPT/HCPCS: 93880 ==

== ENCOUNTER 2025-06-24 09:09 | Outpatient (AMB) | payer MEDICARE, SELFPAY ==
[2025-06-24 09:17] VITALS: BMI 27.4
--- NOTE | 2025-06-24 09:17 | A.OFFVIS_ITS ---
Vital Signs 06/24/25 09:17 Height 5 ft 6 in Weight 170 lb BMI 27.4 Intake Visit Reasons: 6m follow up s/p Carotid US Intake Note: 6 month follow up carotid US 05/24/25. Pt states he doesnt have blurred vision, dizziness or loss of balance, Does state he has had some chest pain and Right arm numbness. 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 A carotid ultrasound performed six months ago revealed a clean right side and 50-79% stenosis on the left side with a peak systolic velocity of 161, which is stable compared to a previous study showing a peak systolic velocity of 152. He confirms he is taking a daily low-dose aspirin as previously advised. He is also being maintained on atorvastatin. He now presents for routine follow-up with carotid testing. [facility] Medical History Helicobacter pylori (H. pylori) HTN (hypertension) GERD (gastroesophageal reflux disease) Surgical History Hx of esophagogastroduodenoscopy Hx of colonoscopy Social History Alcohol intake: former Patient Tobacco Use Status: Former Tobacco user Tobacco use type: Cigarette Review of Systems Const All systems reviewed & are unremarkable except as noted in HPI and below Reports no additional complaints ENT Reports Normal hearing present Card Denies chest pain, Denies chest pain at rest, Denies chest pain with activity and Denies pedal edema Resp Denies cough GI Denies abdominal pain Musc Denies abnormal gait, Denies muscle cramps and Denies radiating pain into limb Skin/Breast Denies skin ulcer and Denies wounds Neuro Reports Normal hearing present and Denies abnormal gait Psych Reports no additional complaints Physical Exam Vital Signs: BMI result Body Mass Index 27.4 Const General: cooperative, healthy appearing and comfortable Orientation/consciousness: oriented to person, oriented to place and oriented to time HEENT Head: Yes normal to inspection Neck Neck: Yes normal visual inspection Carotids: no bruits Chest Chest palpation & inspection: normal inspection of the chest Resp Effort & Inspection: normal respiratory effort and able to speak in complete sentences Auscultation: clear to auscultation bilaterally, no crackles, no rales, no rho nchi and no wheezes Cardio Rate: regular rate Rhythm: regular rhythm Heart sounds: S1 normal heart sound present and S2 normal heart sound present Bruits: no carotid bruits Peripheral pulses: Peripheral pulses 2+ throughout GI Inspection: Yes normal to inspection Skin Wounds: no wounds Hair: normal Neuro General: oriented to person, oriented to place and oriented to time Cranial nerves: Yes CN's II-XII intact bilaterally and Yes Normal hearing present Cognition (Neuro): normal cognition Motor exam (neuro): 5/5 motor strength present throughout Extrem Other: venous exam: No significant superficial varicosities or spider telangiectasias, minimal edema General: No clubbing, No cyanosis and No edema Psych Appearance: grossly normal Mental Status: mental status grossly normal Speech and movement: Normal speech and movement present Results Reviewed Results Reviewed: Arterial testing dated 05/24/2025 demonstrates right-sided 0-49% stenosis left side 50-79% stenosis. Written report and images were reviewed. Assessment & Plan Assessment & Plan (1) Bilateral carotid artery stenosis: Code(s): I65.23 - Occlusion and stenosis of bilateral carotid arteries Category: Medical Plan: In short patient has asymptomatic carotid disease. We have reviewed signs and symptoms of a stroke. We also discussed risk factor modification inclusive a healthy diet low in cholesterol. The patient will follow up with us with surveillance ultrasound of the carotids 1 year. Should there be any changes or signs or symptoms of a stroke we will be happy to see them back sooner. Thank you for allowing us to participate in this patient's care. If there are any questions or concerns please do not hesitate to contact us. Orders: Orders US carotid duplex BI 1 Year I65.23 - Occlusion and stenosis of bilateral carotid arteries Coding Level of Care Code Est Pt Level 4 (83001) Add On Problem Visit Only Diagnoses Bilateral carotid artery stenosis I65.23
== END 2025-06-24 09:48 | disposition home or self-care (01) ==
LOC: HO.HVS 09:09
PROVIDERS: PCP Internal Medicine; Visit Provider Surgery Vascular Surgery
DX: I65.23 Occlusion and stenosis of bilateral carotid arteries (principal)
CPT/HCPCS: 99214; G2211

== ENCOUNTER → 2025-06-24 09:09 | Outpatient (BNVA) | payer MEDICARE, SELFPAY | PROVIDERS: PCP Internal Medicine; Visit Provider Surgery Vascular Surgery | DX: I65.23 Occlusion and stenosis of bilateral carotid arteries (principal) | CPT/HCPCS: 99212 ==

== ENCOUNTER 2025-07-06 12:10 | Outpatient (REF) | payer MEDICARE, SELFPAY ==
--- OUTSIDE RECORDS SUMMARY | 2024-04-07 04:00 | XMS_ITS ---
Author Organization Asim Kim MD Address [address] [place] [id number] Care Team Providers Care Composition Roll Maker And Cutter Name Role Phone Asim Kim Primary Care Provider [phone] Allergies No Known Allergies REASON FOR VISIT 6 month Medications Medication SIG (Take, Route, Frequency, Duration) Notes Start Date End Date Status Doxycycline Hyclate 100 MG 1 capsule Orally every 12 hrs for 1 dose 05/17/2017 Not-Taking CeleBREX 200 MG 1 capsule Orally Onc e a day for 30 day(s) 05/28/2016 Not-Taking Multi For Him 50+ - as directed Orally Not-Taking Naproxen 500 MG TAKE 1 TABLET BY ELIAS TH EVERY DAY WITH FOOD OR MILK NEEDED 90 for 90 Not-Taking Terbinafine HCl 250 MG 1 tablet Orally O nce a day for 90 days 03/14/2023 Not-Taking Atorvastatin Calcium 20 MG 1 tablet Orally Once a day for 90 days 01/13/2024 Active Metoprolol Succinate ER 50 MG TAKE 1 TABLET BY MOUTH EVERY DAY Active Vitamin D3 25 MCG (1000 UT) 1 capsule Orally Once a day for 30 day(s) Active Tamsulosin HCl 0.4 MG TAKE 1 CAPSULE BY MOUTH EVERY DAY DIRECTED 90 for 90 Active Vital Signs Blood pressure systolic 132 mm Hg 04/07/20 Blood pressure diastolic 60 mm Hg 024 Height 66.25 in 04/07/2024 Weight 168 lbs 04/07/2024 BMI 26.91 kg/m2 04/07/2024 Encounters Encounter Location Date Provider Diagnosis Asim Kim MD [address] [place] [address] [place] [phone] 04/07/2024 Asim Kim Prediabetes R73.03 ; Essential hypertension I10 ; High triglycerides E78.1 ; Aortic atherosclerosis I70.0 and Fatty liver disease, nonalcoholic K76.0 Assessments Encounter Date Diagnosis (ICD Code) Assessment Notes Treatment Notes Treatment Clinical Notes Section Notes 04/07/2024 Prediabetes (ICD-10 - R73.03) has good a1c. advised to continue on diet 04/07/2024 Essential hypertension (ICD-10 - I10) stable, at goal, will continue current regiment 04/07/2024 High triglycerides (ICD-10 - E78.1) stable, at goal, willcontinue current regiment 04/07/2024 Aortic atherosclerosis (ICD-10 - I70.0) stable, will continue current regiment 04/07/2024 Fatty liver disease, nonalcoholic (ICD-10 - K76.0) stable, will continue to monitor Plan Of Treatment Treatment Notes Assessment Notes Prediabetes has good a1c. advise d to continue on diet Essential hypertension stable, at goal, will continue current regiment High triglycerides stable, at goal, bennett lcontinue current regiment Aortic atherosclerosis stable, will cont inue current regiment Fatty liver disease, nonalcoholic stable , will continue to monitor Next Appt Details Provider Name:Asim leung, 10/07/2025 07:15:00 AM, [address] [place] [address], [address], [place], [place], [phone], Provider Name:Asim leung, 10/14/2025 09:30:00 AM, [address] [place] [address], [address], [place], [place], [phone], Progress Notes * Tyshawn GRAHAM MDOB:11/1954 (69 yo M)Acc No.[id number]:04/07/2024 Progress Notes Patient: Tyshawn Haque Provider: Maria Isabel Kim MD :1955 A ge:69 Y S ex:Male Date:04/07/2024 Address:[address] [place] [address] , [id number] Subjective: * Chief Complaints: * 6 month * HPI: S ymptom(s): patient is a 69 yo male here for 6 month follow up visit, doing well. getting sore by the end of the day. * ROS: G eneral/Constitutional: Denies C hills. D enies F atigue. D enies F ever. D enies H eadache. E NT: Patient denies d ecreased sense of smell , any loss of taste , sore throat. D enies S ore throat. R espiratory: Denies C ough. D enies S hortness of breath at rest. D enies S hortness of breath with exertion. G astrointestinal: Denies D iarrhea. D enies N ausea. M usculoskeletal: Patient denies m uscle aches. P eripheral Vascular: Patient denies r ed and blue toes. * Medical History: * Surgical History: * Hospitalization/Major Diagno stic Procedure: * Medications: T akingVitamin D3 25 MCG (1000 UT) Capsule 1 capsule Orally Once a dayMetoprolol Succinate ER 50 MG Tablet Extended Release 24 Hour TAKE 1 TABLET BY MOUTH EVERY DAY Atorvastatin Calcium 20 MG Tablet 1 tablet Orally Once a dayTamsulosin HCl 0.4 MG Capsule TAKE 1 CAPSULE BY MOUTH EVERY DAY DIRECTED 90 Taking Vitamin D3 25 MCG (1000 UT) Capsule 1 capsule Orally Once a dayTaking Metoprolol Succinate ER 50 MG Tablet Extended Release 24 Hour TAKE 1 TABLET BY MOUTH EVERY DAY Taking Atorvastatin Calcium 20 MG Tablet 1 tablet Orally Once a dayTaking Tamsulosin HCl 0.4 MG Capsule TAKE 1 CAPSULE BY MOUTH EVERY DAY DIRECTED 90 Not-Taking/PRNTerbinafine HCl 250 MG Tablet 1 tablet Orally Once a dayNaproxen 500 MG Tablet TAKE 1 TABLET BY MOUTH EVERY DAY WITH FOOD OR MILK NEEDED 90 Multi For Him 50+ - Tablet as directed Orally CeleBREX 200 MG Capsule 1 capsule Orally Once a dayDoxycycline Hyclate 100 MG Capsule 1 capsule Orally every 12 hrsMedication List reviewed and reconciled with the patientNot-Taking/PRN Terbinafine HCl 250 MG Tablet 1 tablet Orally Once a dayNot-Taking/PRN Naproxen 500 MG Tablet TAKE 1 TABLET BY MOUTH EVERY DAY WITH FOOD OR MILK NEEDED 90 Not-Taking/PRN Multi For Him 50+ - Tablet as directed Orally Not-Taking/PRN CeleBREX 200 MG Capsule 1 capsule Orally Once a dayNot-Taking/PRN Doxycycline Hyclate 100 MG Capsule 1 capsule Orally every 12 hrsMedication List reviewed and reconciled with the patient * Allergies: N .K.D.A.yes[Allergies Verified] Objective: * Vitals: H t: 66.25, Wt:168, BMI:26.91, BP:132/60. * P ast Orders: L ab:Liver Panel (Order Date - 04/03/2024) (Collection Date - 04/03/2024) Value Reference Range Bilirubin Total 1.1 H 0.0-1.0 - mg/dL Bilirubin Direct 0.4 0.0-0.5 - mg/dL Aspartate Amino Transferase 26 5-37 - U/L Alanine Aminotransferase 37 0-40 - U/L Total Protein 6.8 6.5-8.0 - g/dL Albumin Level 4.3 3.5-5.0 - g/dL Alkaline Phosphatase 65 39-117 - U/L L ab:Glucose Fasting (Order Date - 04/03/2024) (Collection Date - 04/03/2024) Value Reference Range Glucose Fasting 143 H 60-99 - mg/dL L ab:Lipid Panel with Reflex (Order Date - 04/03/2024) (Collection Date - 04/03/2024) Value Reference Range Triglycerides 107 <150 - mg/dL Cholesterol 117 <200 - mg/dL LDL Cholesterol Calculated 45 <100 - mg/dL HDL Cholesterol 51 >40 - mg/dL L ab:Hemoglobin A1c (Order Date - 04/03/2024) (Collection Date - 04/03/2024) Value Reference Range Hemoglobin A1c % 5.0 <6.0 - % Estimated Average Glucose 97 - mg/dL * Examination: G eneral Examination: GENERAL APPEARANCE: alert, well hydrated, in no distress , male. HEAD: normocephalic. SKIN: good turgor. HEART: no murmurs, rubs, gallops, regular rate and rhythm. LUNGS: no wheezes, rales, rhonchi, good air movement, clear to auscultation bilaterally. ABDOMEN: soft, nontender, nondistended. ? Assessment: * Assessment: 1. P rediabetes - R73.03 (Primary) 2 . E ssential hypertension - I10 3 . H igh triglycerides - E78.1 4 . A ortic atherosclerosis - I70.0 5 . F atty liver disease, nonalcoholic - K76.0 Plan: * Treatment: 2. E ssential hypertension Notes: stable, at goal, will continue current regiment 3. H igh triglycerides Notes: stable, at goal, willcontinue current regiment 4. A ortic atherosclerosis Notes: stable, will continue current regiment 5. F atty liver disease, nonalcoholic Notes: stable, will continue to monitor * Procedure Codes: * * Sign off status: Completed true * Provider: Maria Isabel Kim MD Date: 0 04/07/2024 Generated for Mikaela reaves/Shailesh/eTransmitting on: 09/06/2024 01:22 PM EST History and Physical Notes * HPI (History of Present Illness) Category Sub-Category Detail Notes Category Not es Symptom(s) patient is a 69 yo male here for 6 month follow up visit, doing well. getting sore by the end of the day. Examination Category Sub-Category Detail Notes Category Not es General Examination GENERAL APPEARANCE: alert, w ell hydrated, in no distress , male HEAD: normocephalic HEART: no murmurs, rubs, ga llops, regular rate and rhythm LUNGS: no wheezes, rales, r honchi, good air movement, clear to auscultation bilaterally ABDOMEN: soft, nontender, non distended SKIN: good turgor
--- OUTSIDE RECORDS SUMMARY | 2024-06-29 10:15 | XMS_ITS ---
Author Organization Asim Kim MD Address [address] [place] [phone] Care Team Providers Care Coding Quality Analyst Name Role Phone Asim Kim Primary Care Provider Allergies No Known Allergies REASON FOR VISIT Covid positive 06-28-24, c/o chills fatigue, headache, sore throat , productive cough, cannot taste, body aches, runny nose congestion, x 2 days, Video [phone] Medications Medication SIG (Take, Route, Frequency, Duration) Notes Start Date End Date Status Naproxen 500 MG TAKE 1 TABLET BY EVERY DAY WITH FOOD OR MILK NEEDED 90 for 90 Not-Taking Multi For Him 50+ - as directed Orally Not-Taking CeleBREX 200 MG 1 capsule Orally Onc e a day for 30 day(s) 05/28/2016 Not-Taking Doxycycline Hyclate 100 MG 1 capsule Orally every 12 hrs for 1 dose 05/17/2017 Not-Taking Paxlovid (300/100) 20 x 150 MG & 10 x 100MG 3 tablets Orally Twice a day for 5 day(s) 06/29/2024 Active Tamsulosin HCl 0.4 MG TAKE 1 CAPSULE BY MOUTH EVERY DAY DIRECTED 90 for 90 Active Terbinafine HCl 250 MG 1 tablet Orally O nce a day for 90 days 03/14/2023 Not-Taking Vitamin D3 25 MCG (1000 UT) 1 capsule Orally Once a day for 30 day(s) Active Metoprolol Succinate ER 50 MG TAKE 1 TABLET BY MOUTH EVERY DAY Active Atorvastatin Calcium 20 MG 1 tablet Orally Once a day for 90 days 01/13/2024 Active Vital Signs Blood pressure systolic 145 mm Hg 06/29/20 24 Blood pressure diastolic 92 mm Hg 024 Height 66.25 in 06/29/2024 Weight 170 lbs 06/29/2024 BMI 27.23 kg/m2 06/29/2024 weight at home is 170 BP not taken at home today no temp Encounters Encounter Location Date Provider Diagnosis Asim Kim MD [address] [place] [address] [place] [phone] 06/29/2024 Asim Kim Acute COVID-19 U07.1 Assessments Encounter Date Diagnosis (ICD Code) Assessment Notes Treatment Notes Treatment Clinical Notes Section Notes 06/29/2024 Acute COVID-19 (ICD-10 - U07.1) to not take atorvastatin for 3 weeks, patient verbalized understandingod medication and directions for use Plan Of Treatment Medication Medication Name Sig Start Date Stop Date Notes Paxlovid (300/100) 20 x 150 MG & 10 x 100MG 3 tablets Orally Twice a day for 5 day(s) 06/29/2024 Treatment Notes Assessment Notes Acute COVID-19 to not take atorvast atin for 3 weeks, patient verbalized understandingod medication and directions for use Next Appt Details Provider Name:Asim leung, 10/07/2025 07:15:00 AM, [address] [place] [address], Suite [facility], [place], [place], [phone], Provider Name:Asim leung, 10/14/2025 09:30:00 AM, [address] [place] [address], Suite [facility], [place], [place], [phone], Progress Notes * Tyshawn GRAHAM MDOB:11/1954 (69 yo M)Acc No.[id number]:06/29/2024 Patient: Tyshawn Haque Provider: Maria Isabel Kim MD :1955 A ge:69 Y S ex:Male Date:06/29/2024 Address:[address] [place] [address] , [facility], [id number] Subjective: * Chief Complaints: * C ovid positive 06-28-24C/o chills fatigue, headache, sore throat , productive cough, cannot taste, body aches, runny nose congestion, x 2 daysVideo [phone] * HPI: S ymptom(s): Telehealth L ocation of provider rendering services: [address], [address], L ocation of patient: a t address listed in demographics for today's visit, P atient identification confirmed using: ZAINA Ness ame, SSN, Insurance information, T elehealth method: T elephone only. Patient not visible to care provider., C onsent: P atient verbally consented to treatment, Patient verbally consented to billing insurance company, Patient informed of any privacy concerns related to method of visit, T otal time spend talking with patient (minutes) 1 0. patient is a 69 yo male audio telehealth visit, here for follow up of covid. tsted positive 06/28, complainingof chills, fatigue, headache, sore throat, productive cough. * ROS: G eneral/Constitutional: Admits [place]. A dmits F atigue. D enies F ever. A dmits H eadache. E NT: Patient denies d ecreased sense of smell , any loss of taste , sore throat. D enies S ore throat. R espiratory: Admits [place]obo [place]. D enies S hortness of breath at rest. D enies S hortness of breath with exertion. A dmits S putum production. G astrointestinal: Denies D iarrhea. D enies [...] Verified] Objective: * Vitals: H t: 66.25, Wt:170, BMI:27.23, BP:145/92 weight at home is 170 BP not taken at home today no temp. Assessment: * Assessment: Joby Leonard andrews COVID-19 - U07.1 (Primary) Plan: * Treatment: * Procedure Codes: 9 [id number] PHONE E/M BY PHYS 5-10 MIN * * Sign off status: Completed true * Provider: Maria Isabel Kim MD Date: 1 08/30/2023 Generated for Mikaela reaves/Shailesh/Justa on: 09/06/2024 01:22 PM EST History and Physical Notes * HPI (History of Present Illness) Category Sub-Category Detail Notes Category Not es Symptom(s) Telehealth Location of [facility] rendering services:: [address], [address] patient is a 69 yo male kelin o telehealth visit, here for follow up of covid. tsted positive 06/28, complainingof chills, fatigue, headache, sore throat, productive cough Location of patient:: at address listed in demographics for today's visit Patient identification confirmed using:: Name, , SSN, Insurance information Telehealth method:: Telephone only. Sisi ent not visible to care provider. Consent:: Patient verbally c onsented to treatment, Patient verbally consented to billing insurance company, Patient informed of any privacy concerns related to method of visit Total time spend talking with patient (m inutes): 10
--- OUTSIDE RECORDS SUMMARY | 2024-10-05 02:45 | XMS_ITS ---
Author Organization Asim Kim MD Address [address] [place] [phone] Care Team Providers Care Supervisor Cell Maintenance Name Role Phone Asim Kim Primary Care Provider Results Component Value Reference Range Notes Complete Blood Count Auto Di ff Reviewed date:10/05/2024 05:14:43 PM Interpretation: Performing Lab:[facility], [address] [place] [phone] Notes/Report: White Blood Count 4.5 4.8-10.8 X10*3/uL Red Blood Count 4.94 4.60-5.80 X10*6/uL Hemoglobin 14.8 14.0-18.0 g/dl Hematocrit 43.6 42.0-52.0 % Mean Corpuscular Volume 88.3 80.0-98.0 fL Mean Corpuscular Hemoglobin 30.0 27.0-33.0 pg Mean Corpuscular HGB Conc 33.9 31.0-36.0 g/dl Red Cell Distribution Width 13.4 11.0-16.0 % Platelet Count 141 160-400 X10*3/uL Mean Platelet Volume 10.7 9.4-12.4 fL Neutrophils Percent Auto 56.0 45-73 % Imm Gran Pct Auto 0.2 0.0-0.4 % Lymphocytes Percent Auto 31.5 20-40 % Monocytes Percent Auto 8.3 2-11 % Eosinophils Percent Auto 3.1 0-4 % Basophils Percent Auto 0.9 0-2 % NRBC Pct Auto 0.0 0.0-0.2 /100WBC Neutrophils Absolute Auto 2.5 2.0-8.3 x10*3/u L Imm Gran Abs Auto 0.01 0.00-0.03 X10*3/uL Lymphocytes Absolute Auto 1.4 1.2-4.9 X10*3/u L Monocytes Absolute Auto 0.4 0.1-1.2 X10*3/uL Eosinophils Absolute Auto 0.1 0.0-0.4 X10*3/u L Basophils Absolute Auto 0.0 0.0-0.2 X10*3/uL NRBC Abs Auto 0.000 0.0-0.012 X10*3/uL Comprehensive [place]. Panel Fa st Reviewed date:10/05/2024 12:33:28 PM Interpretation: Performing Lab:[facility], [address] [place] [phone] Notes/Report: Sodium 140 135-145 mmol/L Potassium 4.0 3.3-5.1 mmol/L Chloride 108 96-108 mmol/L Carbon Dioxide 26 22-29 mmol/L Anion Gap 10 12-20 Blood Urea Nitrogen 15 9-16 mg/dL Creatinine 0.80 0.5-1.4 mg/dL Estimated Glomerular Filt Rate > 60 Chronic Kidney Disease: Estimated GFR < 60 mL/min/1.73m2 Severe Kidney Disease: Estimated GFR < 15 mL/min/1.73m2 Glucose Fasting 121 60-99 mg/dL A fasting glucose from 100-125 mg/dl is considered impaired (pre-diabetes). Calcium 9.3 8.4-10.2 mg/dL Bilirubin Total 1.2 0.0-1.0 mg/dL Aspartate Amino Transferase 35 5-37 U/L Alanine Aminotransferase 52 0-40 U/L Total Protein 6.7 6.5-8.0 g/dL Albumin Level 4.4 3.5-5.0 g/dL Alkaline Phosphatase 70 39-117 U/L Lipid Panel Reviewed date:10/05/2024 12:34:41 PM Interpretation: Performing Lab:[facility], [address] [place] [phone] Notes/Report: Triglycerides 179 <150 mg/dL Desirable Triglyceride: less than 150 mg/dL Borderline High Triglyceride 150-199 mg/dL High Triglyceride: 200-499 mg/dL Very High Triglyceride: greater than or equal to 5OO mg/dL Cholesterol 129 <200 mg/dL Desirable Cholesterol: less than 200 mg/dL Borderline High Cholesterol: 200-239 mg/dL High Cholesterol: greater than 239 mg/dL LDL Cholesterol Calculated 47 <100 mg/dL Desirable LDL: less than 100 mg/dL Near Optimal/Above Optimal LDL: 110-129 mg/dL Borderline High LDL: 130-159 mg/dL High LDL: 160-189 mg/dL Very High LDL: greater than or equal to 190 mg/dL HDL Cholesterol 47 >40 mg/dL Desirable HDL: greater than 40 mg/dL Note: This HDL assay may give artificially low results in patients with liver disease. PSA,Total (Free>4and<10) Reviewed date:10/05/2024 12:33:59 PM Interpretation: Performing Lab:[facility], [address] [place] [phone] Notes/Report: PSA,Total (Free>4and<10) 1.16 0.00-4.00 ng/mL A Free PSA was not performed: The percentage of Free PSA can be used to enhance the differentiation of prostate cancer from benign prostatic disease in subjects whose PSA levels are between 4.0 and 10.0 ng/mL. For subjects whose PSA levels are below 4.0 or above 10.0 ng/mL, the risk of prostate cancer is determined on the basis of the PSA alone. Therefore the % Free PSA is recommended only for those subjects whose PSA levels are between 4.0 and 10.0 ng/mL. PSA methodology: Hamm Alinity i Chemiluminescent Microparticle Immunoassay (CMIA) Microalbumin, Random Reviewed date:10/05/2024 12:34:54 PM Interpretation: Performing Lab:[facility], [address] [place] [phone] Notes/Report: Creatinine Urine 115.06 Microalbumin Urine 5.0 Microalbum/Creatinine Ratio Ur 4.3 <30 ug/mg cr Albumin/Creatinine Ratio Reference Ranges: Normal: < 30 ug/mg creatinine Microalbuminuria: 30 - 300 ug/mg creatinine Clinical Albuminuria: > 300 ug/mg creatinine Hemoglobin A1c Reviewed date:10/05/2024 12:33:52 PM Interpretation: Performing Lab:[facility], [address] [place] [phone] Notes/Report: Hemoglobin A1c % 5.2 <6.0 % Hemoglobin A1C Reference Range Adults: 4.8 - 6.0 % Non diabetic: < 6.0 % Goal: < 7.0 % Additional Action Suggested: > 8.0 % Note: Hemoglobin A1c results are invalid for patients with abnormal amounts of HbF. Blood transfusions may impact the HbA1c concentration in the patient sample. Estimated Average Glucose 103 eAG = Estimated average glucose which is %A1C expressed as average glucose, using the formula of the [id number] Average Glucose study (ADAG), Diabetes Care, Vol.31,#8, Feb. 2007 UA ClnCatch+Micro w/rflx Cul t Reviewed date:10/05/2024 12:45:01 PM Interpretation: Performing Lab:[facility], [address] [place] [phone] Notes/Report: Urine, Clean Catch Color Urine Yellow Appearance Urine Clear PH 5.5 5.0-9.0 Glucose Urine UA Negative Negative mg/dL Urine Blood Negative Negative Specific [place] - Urine 1.020 1.005-1.025 Urine Protein Negative Neg-Trace mg/dL Urine Ketones Negative Negative mg/dL Nitrite Urine Negative Negative Leukocyte Esterase Urine Negative Negative RBC Urine 0-2 0-2 /HPF WBC Urine 0-5 0-5 /HPF Squamous Epithelial Cell Urine 0-2 0-2 /HPF Bacteria Urine None Seen None Seen Hyaline Casts Urine 0-2 0-2 /LPF REASON FOR VISIT yearly fasting labs Encounters Encounter Location Date Provider Diagnosis Asim Kim MD [address] [place], [place] [phone] 10/05/2024 Asim Kim Prostatism N40.0 ; Labile hypertension I10 and Prediabetes R73.03 Assessments Encounter Date Diagnosis (ICD Code) Assessment Notes Treatment Notes Treatment Clinical Notes Section Notes 10/05/2024 Prostatism (ICD-10 - N40.0) 10/05/2024 Labile hypertension (ICD-10 - I10) 10/05/2024 Prediabetes (ICD-10 - R73.03) Plan Of Treatment Next Appt Details Provider Name:Asim Clark ier, 10/07/2025 07:15:00 AM, [address] [place] [address], [address], [place], [place], [phone], Provider Name:Asim Clark ier, 10/14/2025 09:30:00 AM, [address] [place] [address], [address], [place], [place], [phone], Progress Notes * Tyshawn GRAHMA MDOB:11/1954 (70 yo M)Acc No.[id number]:10/05/2024 Progress Note Patient: Leonard Tyshawn CAMARGO Provider: Maria Isabel Kim MD :1955 A ge:69 Y S ex:Male Date:10/05/2024 Address:[address] [place] [address], [phone] Subjective: * Chief Complaints: * 1 . Yearly fasting labs. * Medical History: Objective: * Vitals: Assessment: * Assessment: 1. P rostatism - N40.0 (Primary) 2 . L abile hypertension - I10 ?3. P rediabetes - R73.03 Plan: * Treatment: 2. L abile hypertension L AB: Complete Blood Count Auto Diff (Collection Date & Time - 10/05/2024 07:45 AM) L AB: Comprehensive [place]. Panel Fast (Collection Date & Time - 10/05/2024 07:45 AM) L AB: Lipid Panel (Collection Date & Time - 10/05/2024 07:45 AM) L AB: PSA,Total (Free>4and<10) (Collection Date & Time - 10/05/2024 07:45 AM) L AB: Microalbumin, Random (Collection Date & Time - 10/05/2024 07:45 AM) L AB: UA ClnCatch+Micro w/rflx Cult (Collection Date & Time - 10/05/2024 07:45 AM) 3. P rediabetes L AB: Complete Blood Count Auto Diff (Collection Date & Time - 10/05/2024 07:45 AM) L AB: Comprehensive [place]. Panel Fast (Collection Date & Time - 10/05/2024 07:45 AM) L AB: Lipid Panel (Collection Date & Time - 10/05/2024 07:45 AM) L AB: PSA,Total (Free>4and<10) (Collection Date & Time - 10/05/2024 07:45 AM) L AB: Microalbumin, Random (Collection Date & Time - 10/05/2024 07:45 AM) L AB: Hemoglobin A1c (Collection Date & Time - 10/05/2024 07:45 AM) L AB: UA ClnCatch+Micro w/rflx Cult (Collection Date & Time - 10/05/2024 07:45 AM) * Procedure Codes: 3 6415 VENIPUNCT, ROUTINE* * * The named appointment provid er may or may not be the originator of this progress note, and it is not deemed complete until electronically signed by the appointment provider. Sign off status: Pending * Provider: Maria Isabel Kim MD Date: 0 10/05/2024 Generated for Mikaela reaves/Shailesh/Danisitting on: 09/06/2024 01:22 PM EST
--- OUTSIDE RECORDS SUMMARY | 2024-10-12 04:30 | XMS_ITS ---
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 Name Role Phone Asim Kim Primary Care Provider Allergies No Known Allergies Results Component Value Reference Range Notes Occult Blood, Stool, Guaiac Reviewed date:10/12/2024 10:42:46 AM Interpretation:Negative Performing Lab: Notes/Report: Negative Occult Blood, Stool, Guaiac Neg REASON FOR VISIT annual visit Medications Medication SIG (Take, Route, Frequency, Duration) Notes Start Date End Date Status CeleBREX 200 MG 1 capsule Orally Onc e a day for 30 day(s) 05/28/2016 Not-Taking Tamsulosin HCl 0.4 MG TAKE 1 CAPSULE BY MOUTH EVERY DAY DIRECTED 90 Active Metoprolol Succinate ER 50 MG TAKE 1 TABLET BY MOUTH EVERY DAY Active Atorvastatin Calcium 20 MG 1 tablet Orally Once a day 01/13/2024 Active Doxycycline Hyclate 100 MG 1 capsule Orally every 12 hrs for 1 dose 05/17/2017 Not-Taking Multi For Him 50+ - as directed Orally Not-Taking Terbinafine HCl 250 MG 1 tablet Orally O nce a day for 90 days 03/14/2023 Not-Taking Naproxen 500 MG TAKE 1 TABLET BY ELIAS TH EVERY DAY WITH FOOD OR MILK NEEDED 90 for 90 Not-Taking Social History Tobacco Use: Social History Observation Description Date Details (start date - stop date) Former Smoker NA - NA Tobacco Use/Smoking Question Answer Notes Patient is a former smoker How long has it been since y ou last smoked? > 10 years Additional Findings: Tobacco Non-User Fo rmer smoker, currently using no form of tobacco Alcohol Screen Question Answer Notes Did you have a drink contain ing alcohol in the past year? Yes How often did you have a dri nk containing alcohol in the past year? Monthly or less (1 point) How many drinks did you have on a typical day when you were drinking in the past year? 1 or 2 drinks (0 point) How often did you have 6 or more drinks on one occasion in the past year? Never (0 point) Points 1 Interpretation Negative Vital Signs Blood pressure systolic 102 mm Hg 10/13/19 25 Blood pressure diastolic 54 mm Hg 025 Height 66.25 in 10/12/2024 Weight 170 lbs 10/12/2024 BMI 27.23 kg/m2 10/12/2024 Encounters Encounter Location Date Provider Diagnosis Asim Kim MD [address] [facility] [address] [place], [place] [phone] 10/12/2024 Asim Kim Thrombocytopenia D69 .6 ; Mild aortic stenosis I35.0 ; Carotid bruit, unspecified laterality R09.89 ; Labile hypertension I10 ; Prostatism N40.0 ; High triglycerides E78.1 ; Colon cancer screening Z12.11 and Depression screening Z13.31 Assessments Encounter Date Diagnosis (ICD Code) Assessment Notes Treatment Notes Treatment Clinical Notes Section Notes 10/12/2024 Thrombocytopenia (ICD-10 - D69.6) stable, will continue to monitor 10/12/2024 Mild aortic stenosis (ICD-10 - I35.0) repeat echo in 2 years/ order entered in system printed and put in future folder 10/12/2024 Carotid bruit, unspecified laterality (ICD-10 - R09.89) pending diagnostic testing/ [place] [facility] [place] 10/12/2024 Labile hypertension (ICD-10 - I10) stable, will continue currnt regiment 10/12/2024 Prostatism (ICD-10 - N40.0) stable, will continue to monitor 10/12/2024 High triglycerides (ICD-10 - E78.1) stable, will continue current regiment and will continue to monitor 10/12/2024 Colon cancer screening (ICD-10 - Z12.11) guaiac negative 10/12/2024 Depression screening (ICD-10 - Z13.31) negative screen Plan Of Treatment Medication Medication Name Sig Start Date Stop Date Notes Tamsulosin HCl 0.4 MG TAKE 1 CAPSULE BY MOUTH EVERY DAY DIRECTED 90 Metoprolol Succinate ER 50 MG TAKE 1 TAB LET BY MOUTH EVERY DAY Atorvastatin Calcium 20 MG 1 tablet Orally Once a day 07/2023 Treatment Notes Assessment Notes Thrombocytopenia stable, will continu e to monitor Mild aortic stenosis repeat echo in 2 ye ars/ order entered in system printed and put in future folder Carotid bruit, unspecified laterality pe nding diagnostic testing/ order faxed to [facility] dept Labile hypertension stable, will continu e currnt regiment Prostatism stable, will continu e to monitor High triglycerides stable, will continu e current regiment and will continue to monitor Colon cancer screening guaiac negative Depression screening negative screen Pending Test Test Name Order Date US CAROTID BILATERAL DOPPLER 10/12/2024 Future Test Test Name Order Date ECHO 10/12/2026 Next Appt Details Follow Up: 6 Months, Reason: Provider Name:Asim leung, 10/07/2025 07:15:00 AM, [address] [place] [address], [address] [place] [address], [phone], Provider Name:Asim leung, 10/14/2025 09:30:00 AM, [address] [place] [address], [place] [address], [place], [place], [phone], Progress Notes * Tyshawn GRAHAM MDOB:11/1954 (69 yo M)Acc No.[id number]:10/12/2024 Progress Notes Patient: Leonard Tyshawn CAMARGO Provider: Maria Isabel Kim MD :1955 A ge:69 Y S ex:Male Date:10/12/2024 Address:[address] [place] [address] Andrei , Mina chávez [phone] Subjective: * Chief Complaints: * A nnual visit * HPI: D epression Screening: PHQ-9 L ittle interest or pleasure in doing things N ot at all, F eeling down, depressed, or hopeless N ot at all, T rouble falling or staying asleep, or sleeping too much N ot at all, F eeling tired or having little energy N ot at all, P oor appetite or overeating N ot at all, F eeling bad about yourself or that you are a failure, or have let yourself or your family down N ot at all, T rouble concentrating on things, such as reading the newspaper or watching television N ot at all, M oving or speaking so slowly that other people could have noticed; or the opposite, being so fidgety or restless that you have been moving around a lot more than usual N ot at all, T houghts that you would be better off or of hurting yourself in some way N ot at all, T otal Score 0 . I nterpretation and Intervention D epression Screening Findings N egative, F ollow-Up for Depression : review of PHQ-9 found negative result, no follow-up needed. C ommunication Needs: Communication Needs D oes the patient have a hearing impairment N o, D oes the patient have a vision impairment? Y es, I f yes, what is the vision impairment? G lasses, D oes the patient have a cognition impairment? N o. F all Risk: History H ave you had any falls with injury in the past year? N o, H ave you had two or more falls in the past year? N o. S ZAKIYA Questions: SDOH Questions I n the past year have you been worried about losing housing? N o, I n the past year have you or any family members you live with been unable to get any of the following when it was really needed? Check all that apply: N one. S ymptom(s): patient is a 69 yomale here for annul visit with review of recent labs and follow up of chronic issues. * ROS: G eneral/Constitutional: Change in appetite d enies. C hills d enies. F ever d enies. O phthalmologic: Blurred vision d enies. D ischarge d enies. P ain d enies. E NT: Decreased hearing d enies. S ore throat d enies.?Swollen glands d enies. E ndocrine: Cold intolerance d enies. E xcessive thirst d enies. H eat intolerance d enies. W eight loss d enies. R espiratory: Cough d enies. S hortness of breath at rest d enies. S hortness of breath with exertion d enies. W heezing d enies. C ardiovascular: Chest pain at rest d enies. C hest pain with exertion?denies. I rregular heartbeat d enies. S hortness of breath d enies. ? G astrointestinal: Abdominal pain d enies. C hange in bowel habits d enies. D iarrhea d enies. N ausea d enies. R ectal bleeding d enies. V omiting d enies . G enitourinary: Blood in urine d enies. D ifficulty urinating d enies. F requent urination d enies. M usculoskeletal: Painful joints d enies. W eakness d enies. ? S kin: Dry skin d enies. I tching d enies. D enies?Mole(s), changes in moles, new moles or any lesions of concern. D enies P hotosensitivity. R krystina d enies. N eurologic: Dizziness d enies. F ainting d enies. H eadache?denies. * Medical History: * Surgical History: * Hospitalization/Major Diagno stic Procedure: * Family History: F ather: 43 yrs. M other: 23 yrs. 1 sister(s) - healthy. 3 daughter(s) . . Father-Drug Abuse Mother-Hepatitis, No pertinent family medical historyfather substance abuse and no mental illness in the family, No pertinent family medical history, Denies mental health/substance abuse family history, No pertinent family medical history. * Social History: T obacco Use: T obacco Use/Smoking P atient is a f ormer smoker, H ow long has it been since you last smoked? > 10 years, A dditional Findings: Tobacco Non-User F ormer smoker, currently using no form of tobacco. D rugs/Alcohol: A lcohol Screen D id you have a drink containing alcohol in the past year? Y es, H ow often did you have a drink containing alcohol in the past year? M onthly or less (1 point), H ow many drinks did you have on a typical day when you were drinking in the past year? 1 or 2 drinks (0 point), H ow often did you have 6 or more drinks on one occasion in the past year? N ever (0 point), P oints 1 , I nterpretation N egative. M iscellaneous: C affeine: yes, frequency: 4 cups of coffee in the am. Children: yes. Community involvements: no. Exercise: no. Housing: owning. Living with: spouse and grand daughter. Marital status: . Occupation: works full-time. Pets: dog x1 cat x2. Travel outside of the [place]: no. * Medications: T akingMetoprolol Succinate ER 50 MG Tablet Extended Release 24 Hour TAKE 1 TABLET BY MOUTH EVERY DAY Atorvastatin Calcium 20 MG Tablet 1 tablet Orally Once a day Tamsulosin HCl 0.4 MG Capsule TAKE 1 CAPSULE BY MOUTH EVERY DAY DIRECTED 90 Taking Metoprolol Succinate ER 50 MG Tablet Extended Release 24 Hour TAKE 1 TABLET BY MOUTH EVERY DAY Taking Atorvastatin Calcium 20 MG Tablet 1 tablet Orally Once a day Taking Tamsulosin HCl 0.4 MG Capsule TAKE 1 CAPSULE BY MOUTH EVERY DAY DIRECTED 90 Not-Taking/PRNTerbinafine HCl 250 MG Tablet 1 tablet Orally Once a day Naproxen 500 MG Tablet TAKE 1 TABLET BY MOUTH EVERY DAY WITH FOOD OR MILK NEEDED 90 Multi For Him 50+ - Tablet as directed Orally CeleBREX 200 MG Capsule 1 capsule Orally Once a day Doxycycline Hyclate 100 MG Capsule 1 capsule Orally every 12 hrs Not- Taking/PRN Terbinafine HCl 250 MG Tablet 1 tablet Orally Once a day Not-Taking/PRN Naproxen 500 MG Tablet TAKE 1 TABLET BY MOUTH EVERY DAY WITH FOOD OR MILK NEEDED 90 Not-Taking/PRN Multi For Him 50+ - Tablet as directed Orally Not-Taking/PRN CeleBREX 200 MG Capsule 1 capsule Orally Once a day Not-Taking/PRN Doxycycline Hyclate 100 MG Capsule 1 capsule Orally every 12 hrs DiscontinuedVitamin D3 25 MCG (1000 UT) Capsule 1 capsule Orally Once a day Paxlovid (300/100) 20 x 150 MG & 10 x 100MG Tablet Therapy Pack 3 tablets Orally Twice a day Medication List reviewed and reconciled with the patientDiscontinued Vitamin D3 25 MCG (1000 UT) Capsule 1 capsule Orally Once a day Discontinued Paxlovid (300/100) 20 x 150 MG & 10 x 100MG Tablet Therapy Pack 3 tablets Orally Twice a day Medication List reviewed and reconciled with the patient * Allergies: N .K.D.A.yes[Allergies Verified] Objective: * Vitals: H t: 66.25, Wt: 170, BMI:27.23, BP:102/54, Wt-k.11. * P ast Orders: L ab:Hemoglobin A1c (Order Date - 10/05/2024) (Collection Date & Time - 10/05/2024 07:45 AM) Value Reference Range Hemoglobin A1c % 5.2 <6.0 - % Estimated Average Glucose 103 - mg/dL L ab:Complete Blood Count Auto Diff (Order Date - 10/05/2024) (Collection Date & Time - 10/05/2024 07:45 AM) Value Reference Range White Blood Count 4.5 L 4.8-10.8 - X10*3/uL Red Blood Count 4.94 4.60-5.80 - X10*6/uL Hemoglobin 14.8 14.0-18.0 - g/dl Hematocrit 43.6 42.0-52.0 - % Mean Corpuscular Volume 88.3 80.0-98.0 - fL Mean Corpuscular Hemoglobin 30.0 27.0-33.0 - pg Mean Corpuscular HGB Conc 33.9 31.0-36.0 - g/ dl Red Cell Distribution Width 13.4 11.0-16.0 - % Platelet Count 141 L 160-400 - X10*3/uL Mean Platelet Volume 10.7 9.4-12.4 - fL Neutrophils Percent Auto 56.0 45-73 - % Imm Gran Pct Auto 0.2 0.0-0.4 - % Lymphocytes Percent Auto 31.5 20-40 - % Monocytes Percent Auto 8.3 2-11 - % Eosinophils Percent Auto 3.1 0-4 - % Basophils Percent Auto 0.9 0-2 - % NRBC Pct Auto 0.0 0.0-0.2 - /100WBC Neutrophils Absolute Auto 2.5 2.0-8.3 - x10* 3/uL Imm Gran Abs Auto 0.01 0.00-0.03 - X10*3/uL Lymphocytes Absolute Auto 1.4 1.2-4.9 - X10* 3/uL Monocytes Absolute Auto 0.4 0.1-1.2 - X10*3/ uL Eosinophils Absolute Auto 0.1 0.0-0.4 - X10* 3/uL Basophils Absolute Auto 0.0 0.0-0.2 - X10*3/ uL NRBC Abs Auto 0.000 0.0-0.012 - X10*3/uL L ab:UA ClnCatch+Micro w/rflx Cult (Order Date - 10/05/2024) (Collection Date & Time - 10/05/2024 07:45 AM) Value Reference Range Color Urine Yellow - Appearance Urine Clear - PH 5.5 5.0-9.0 - Glucose Urine UA Negative Negative - mg/dL Urine Blood Negative Negative - Specific [place] - Urine 1.020 1.005-1.025 - Urine Protein Negative Neg-Trace - mg/dL Urine Ketones Negative Negative - mg/dL Nitrite Urine Negative Negative - Leukocyte Esterase Urine Negative Negative - RBC Urine 0-2 0-2 - /HPF WBC Urine 0-5 0-5 - /HPF Squamous Epithelial Cell Urine 0-2 0-2 - /HP F Bacteria Urine None Seen None Seen - Hyaline Casts Urine 0-2 0-2 - /LPF L ab:Comprehensive [place]. Panel Fast (Order Date - 10/05/2024) (Collection Date & Time - 10/05/2024 07:45 AM) Value Reference Range Sodium 140 135-145 - mmol/L Bilirubin Total 1.2 H 0.0-1.0 - mg/dL Aspartate Amino Transferase 35 5-37 - U/L Alanine Aminotransferase 52 H 0-40 - U/L Total Protein 6.7 6.5-8.0 - g/dL Albumin Level 4.4 3.5-5.0 - g/dL Alkaline Phosphatase 70 39-117 - U/L Potassium 4.0 3.3-5.1 - mmol/L Chloride 108 96-108 - mmol/L Carbon Dioxide 26 22-29 - mmol/L Anion Gap 10 L 12-20 - Blood Urea Nitrogen 15 9-16 - mg/dL Creatinine 0.80 0.5-1.4 - mg/dL Estimated Glomerular Filt Rate > 60 - Glucose Fasting 121 H 60-99 - mg/dL Calcium 9.3 8.4-10.2 - mg/dL L ab:Lipid Panel (Order Date - 10/05/2024) (Collection Date & Time - 10/05/2024 07:45 AM) Value Reference Range Triglycerides 179 H <150 - mg/dL Cholesterol 129 <200 - mg/dL LDL Cholesterol Calculated 47 <100 - mg/dL HDL Cholesterol 47 >40 - mg/dL L ab:PSA,Total (Free>4and<10) (Order Date - 10/05/2024) (Collection Date & Time - 10/05/2024 07:45 AM) Value Reference Range PSA,Total (Free>4and<10) 1.16 0.00-4.00 - ng/ mL L ab:Microalbumin, Random (Order Date - 10/05/2024) (Collection Date & Time - 10/05/2024 07:45 AM) Value Reference Range Creatinine Urine 115.06 - mg/dL Microalbumin Urine 5.0 - mg/L Microalbum Creatinine Ratio Ur 4.3 <30 - ug/ mg cr * Examination: G eneral Examination: GENERAL APPEARANCE: w ell developed, well nourished, in no acute distress. HEAD: n ormocephalic, atraumatic. EYES: p upils equal, round, reactive to light and accommodation, sclera non-icteric. EARS: n ormal. ORAL CAVITY: m ucosa moist. THROAT: c lear. NECK/THYROID: n randall supple, full range of motion, no cervical lymphadenopathy, bruits in both carotids possibly radiated from aoritic stenosis. SKIN: w arm and dry, no suspicious lesions. HEART: r egular rate and rhythm, S1, S2 normal, , grade 2/6 systolic murmur at left sternal border . LUNGS: c lear to auscultation bilaterally. ABDOMEN: s oft, nontender, nondistended, bowel sounds present, normal, no organomegaly , no masses palpable. RECTAL EXAM: n ormal tone, no external hemorrhoids, no masses palpable, prostate normal, stool guaiac negative. MALE GENITOURINARY: c ircumcised, no testicular mass, testes descended bilaterally. EXTREMITIES: n o clubbing, cyanosis, or edema. NEUROLOGIC: n onfocal, motor strength normal upper and lower extremities, sensory exam intact. Assessment: * Assessment: 1. T hrombocytopenia - D69.6 (Primary) 2 . M ild aortic stenosis - I35.0? 3. C arotid bruit, unspecified laterality - R09.89 4 . L abile hypertension - I10 5 . P rostatism - N40.0 6 . H igh triglycerides - E78.1 7 . C olon cancer screening - Z12.11 8 . D epression screening - Z13.31 Plan: * Treatment: 2. M ild aortic stenosis I maging: ECHO (Ordered for 10/12/2026) Notes: repeat echo in 2 years/ order entered in system printed and put in future folder 3. C arotid bruit, unspecified laterality I maging: US CAROTID BILATERAL DOPPLER Notes: pending diagnostic testing/ order [place] [facility] [place] 4. L abile hypertension Continue Metoprolol Succinate ER Tablet Extended Release 24 Hour, 50 MG, TAKE 1 TABLET BY MOUTH EVERY DAY. Notes: stable, will continue currnt regiment 5. P rostatism Continue Tamsulosin HCl Capsule, 0.4 MG, TAKE 1 CAPSULE BY MOUTH EVERY DAY DIRECTED 90. ? Notes: stable, will continue to monitor 6. H igh triglycerides Continue Atorvastatin Calcium Tablet, 20 MG, 1 tablet, Orally, Once a day. Notes: stable, will continue current regiment and will continue to monitor 7. C olon cancer screening L AB: Occult Blood, Stool, Guaiac (Collection Date & Time - 10/12/2024) N egative Value Reference Range O ccult Blood, Stool, Guaiac Neg Notes: guaiac negative??8.?Depression screening? Notes: negative screen?? * Procedure Codes: 8 2270 TEST FOR BLOOD, [id number] Complex e/m visit add on * Preventive Medicine: Counseling: C are goal follow-up plan: C ounseling for abnormal BMI provided?Yes, Leonard cobos Normal BMI Follow-up Maria Isabel wilkinson encouragement to exercise. * Follow Up: 6 Months * * Sign off status: Completed true * Provider: Maria Isabel Kim MD Date: 0 10/12/2024 Generated for Alesiai jean paul/Shailesh/Justa on: 1 09/06/2024 01:21 PM EST History and Physical Notes * HPI (History of Present Illness) Category Sub-Category Detail Notes Category Not es Symptom(s) patient is a 69 yomale here for [facility] visit with review of recent labs and follow up of chronic issues Depression Screening PHQ-9 Little inte rest or pleasure in doing things: Not at all Feeling down, depressed, or hopeless: No t at all Trouble falling or staying asleep, or sl eeping too much: Not at all Feeling tired or having little energy: N ot at all Poor appetite or overeating: Not at all Feeling bad about yourself o r that you are a failure, or have let yourself or your family down: Not at all Trouble concentrating on thi ngs, such as reading the newspaper or watching television: Not at all Moving or speaking so slowly that other people could have noticed; or the opposite, being so fidgety or restless that you have been moving around a lot more than usual: Not at all Thoughts that you would be b alexa off or of hurting yourself in some way: Not at all Total Score: 0 Interpretation and Intervention Depression Colleen davis Findings: Negative Follow-Up for Depression: : review of PH Q-9 found negative result, no follow-up needed SDOH Questions SDOH Questions In the past year have you been worried about losing housing?: No In the past year have you or any family members you live with been unable to get any of the following when it was really needed? Check all that apply:: None Fall Risk History Have you had any falls with injury i n the past year?: No Have you had two or more falls in the st year?: No Communication Needs Communication Needs Does the patient have a hearing impairment: No Does the patient have a vision impairmen t?: Yes If yes, what is the vision impairment?: Glasses Does the patient have a cognition impair ment?: No Examination Category Sub-Category Detail Notes Category Not es General Examination GENERAL APPEARANCE: well dev eloped, well nourished, in no acute distress HEAD: normocephalic, atrau matic EYES: pupils equal, round, reactive to light and accommodation, sclera non-icteric EARS: normal THROAT: clear NECK/THYROID: neck supple, full ra nge of motion, no cervical lymphadenopathy, bruits in both carotids possibly radiated from aoritic stenosis HEART: regular rate and rhy thm, S1, S2 normal, , grade 2/6 systolic murmur at left sternal border LUNGS: clear to auscultatio n bilaterally ABDOMEN: soft, nontender, non distended, bowel sounds present, normal, no organomegaly , no masses palpable NEUROLOGIC: nonfocal, motor stre ngth normal upper and lower extremities, sensory exam intact SKIN: warm and dry, no juan alberto picious lesions EXTREMITIES: no clubbing, cyanosi s, or edema MALE GENITOURINARY: circumcised, no test icular mass, testes descended bilaterally RECTAL EXAM: normal tone, no exte rnal hemorrhoids, no masses palpable, prostate normal, stool guaiac negative ORAL CAVITY: mucosa moist
--- OUTSIDE RECORDS SUMMARY | 2024-11-12 05:00 | XMS_ITS ---
Author Organization Asim Kim MD Address [address] [place] [phone] Care Team Providers Care Assembler Wire Group Name Role Phone Asim Kim Primary Care Provider Allergies No Known Allergies Reason For Referral Reason Carotid artery disea se Diagnosis 1 Carotid artery disea se (I77.9) Referral Organization Asim Kim MD Referring Provider First Name Asim Referring Provider Last Name Julio Referring Provider Speciality Internal M edicine Referred Provider JACKSON GONZALEZ Referred Provider Specialty Vascular [place] [facility] Notes Darling Ba 0 11/13/2024 01:52:35 PM > referral info faxed, Darling Ba 11/20/2024 11:10:19 AM >left message regarding referral and mailed Referral Priority Routine Referral Appointment Date 11/26/2024 REASON FOR VISIT CBACK US Medications Medication SIG (Take, Route, Frequency, Duration) Notes Start Date End Date Status Metoprolol Succinate ER 50 MG TAKE 1 TABLET BY MOUTH EVERY DAY Active Multi For Him 50+ - as directed Orally Not-Taking Naproxen 500 MG TAKE 1 TABLET BY ELIAS TH EVERY DAY WITH FOOD OR MILK NEEDED 90 for 90 Not-Taking Doxycycline Hyclate 100 MG 1 capsule Orally every 12 hrs for 1 dose 05/17/2017 Not-Taking CeleBREX 200 MG 1 capsule Orally Onc e a day for 30 day(s) 05/28/2016 Not-Taking Atorvastatin Calcium 20 MG 1 tablet Orally Once a day 01/13/2024 Active Terbinafine HCl 250 MG 1 tablet Orally O nce a day for 90 days 03/14/2023 Not-Taking Tamsulosin HCl 0.4 MG TAKE 1 CAPSULE BY MOUTH EVERY DAY DIRECTED 90 Active Problems Problem Type SNOMED Code ICD Code Onset Dates Problem Status W/U Status Risk Notes Problem Carotid artery disease (898805922) Carotid artery disease (I77.9) Active confirmed Vital Signs Blood pressure systolic 116 mm Hg 11/13/19 25 Blood pressure diastolic 62 mm Hg 025 Height 66.25 in 11/12/2024 Weight 167 lbs 11/12/2024 BMI 26.75 kg/m2 11/12/2024 weight is down 3 pounds [facility] e 10-12-24 Encounters Encounter Location Date Provider Diagnosis Asim Kim MD [address] [place] [address] [place] [phone] 11/12/2024 Asim Kim Carotid artery disease I77.9 Assessments Encounter Date Diagnosis (ICD Code) Assessment Notes Treatment Notes Treatment Clinical Notes Section Notes 11/12/2024 Carotid artery disease (ICD-10 - I77.9) discussed findings of recent US with patient, referral to dr gonzalez. Plan Of Treatment Treatment Notes Assessment Notes Carotid artery disease discussed finding s of recent US with patient, referral to dr gonzalez. Referrals Referral Date Details 11/12/2024 11/12/2024, Carotid artery disease, JACKSON GONZALEZ Next Appt Details Provider Name:Asim leung, 10/07/2025 07:15:00 AM, [address] [place] [address], Suite [facility], [place], [place], [phone], Provider Name:Asim leung, 10/14/2025 09:30:00 AM, [address] [place] [address], [address], [place], [phone], Progress Notes * Tyshawn GRAHAM MDOB:11/1954 (69 yo M)Acc No.[id number]:11/12/2024 Patient: Tyshawn BURT Provider: Maria Isabel Kim MD :1955 A ge:69 Y S ex:Male Date:11/12/2024 Address:[address] [place] [address] , [place], [phone] Subjective: * Chief Complaints: * C BACK US * HPI: S ymptom(s): patient is a 69 yo male here to discuss recent US. * ROS: G eneral/Constitutional: Denies Lobo hills. D enies F atigue. D enies F ever. D enies H eadache. E NT: Denies S ore throat. R espiratory: Denies Lobo ough. D enies S hortness of breath at rest. D enies S hortness of breath with exertion. G astrointestinal: Denies D iarrhea. D enies N ausea. * Medical History: * Surgical History: * Hospitalization/Major Diagno stic Procedure: * Medications: T akingMetoprolol Succinate ER 50 [...] Capsule 1 capsule Orally every 12 hrs Medication List reviewed and reconciled with the patientNot-Taking/PRN [...] Capsule 1 capsule Orally every 12 hrs Medication List reviewed and reconciled with the patient * Allergies: N .K.D.A.yes[Allergies Verified] Objective: * Vitals: H t: 66.25, Wt: 167, BMI:26.75, BP:116/62, Wt-k.75. weight is down 3 pounds since 10-12-24. * Examination: G eneral Examination: GENERAL APPEARANCE: n ormal, alert, well hydrated, in no distress. HEAD: n ormocephalic. NECK/THYROID: b ilateral bruits. SKIN: g ood turgor. HEART: r egular rate and rhythm. LUNGS: n o wheezes, rales, rhonchi, good air movement, clear to auscultation bilaterally. Assessment: * Assessment: 1. C arotid artery disease - I77.9 (Primary) Plan: * Treatment: * Procedure Codes: * * Sign off status: Completed true * Provider: Maria Isabel Kim MD Date: 0 11/12/2024 Generated for Mikaela reaves/Shailesh/Jonathansmitting on: 09/06/2024 01:22 PM EST History and Physical Notes * HPI (History of Present Illness) Category Sub-Category Detail Notes Category Not es Symptom(s) patient is a 69 yo male here to discuss recent US Examination Category Sub-Category Detail Notes Category Not es General Examination GENERAL APPEARANCE: normal, alert, well hydrated, in no distress HEAD: normocephalic NECK/THYROID: bilateral bruits HEART: regular rate and rhy thm LUNGS: no wheezes, rales, r honchi, good air movement, clear to auscultation bilaterally SKIN: good turgor Consultation Request Notes Referral Date Referring Provider Referred Provider Not es 11/12/2024 Asim Kim SANDIP Carotid art marco disease
--- OUTSIDE RECORDS SUMMARY | 2024-11-24 04:22 | XMS_ITS ---
Author Organization Asim Kim MD Address [address] [place] [phone] Care Team Providers Care Client Solutions Manager Name Role Phone Asim Kim Primary Care Provider [phone] REASON FOR VISIT tick bite Medications Medication SIG (Take, Route, Frequency, Duration) Notes Start Date End Date Status Doxycycline Hyclate 100 MG 1 capsule Ora lly twice a day for 1 days 11/24/2024 Active Encounters Encounter Location Date Provider Diagnosis Asim Kim MD [address] [place], [place] [phone] 11/24/2024 Asim Kim Plan Of Treatment Medication Medication Name Sig Start Date Stop Date Notes Doxycycline Hyclate 100 MG 1 capsule Ora lly twice a day for 1 days 11/24/2024 Next Appt Details Provider Name:Asim leung, 10/07/2025 07:15:00 AM, [address], [address], [place], [place], [phone], Provider Name:Asim Clark hugor, 10/14/2025 09:30:00 AM, [address], [address], [place], [phone], Progress Notes * Tyshawn GRAHAM MDOB:11/1954 (69 yo M)Acc No.[id number]:11/24/2024 Patient: Leonard Tyshawn CAMARGO :1955 A ge:69 Y S ex:Male Address:[address] [place] [address] , [place] [address] * Refills Start Doxycycline Hyclate Capsule, 100 MG, Orally, 2 Capsule, 1 capsule, twice a day, 1 days, Refills=3 * true * Date: Generated for Mikaela reaves/Shailesh/Jonathansmitting on: 09/06/2024 01:21 PM EST
--- OUTSIDE RECORDS SUMMARY | 2025-02-22 10:15 | XMS_ITS ---
Author Organization Asim Kim MD Address [address] [place] [phone] Care Team Providers Care Nip Wrapper Name Role Phone Asim Kim Primary Care Provider Allergies No Known Allergies REASON FOR VISIT poison richy on his ankles x 1 week and arms, went to Urgent Care in [place] was given a cream Medications Medication SIG (Take, Route, Frequency, Duration) Notes Start Date End Date Status Atorvastatin Calcium 20 MG TAKE 1 TABLET BY MOUTH EVERY DAY FOR 90 DAYS for 90 Active Tamsulosin HCl 0.4 MG TAKE 1 CAPSULE BY MOUTH EVERY DAY DIRECTED 90 for 90 Active Metoprolol Succinate ER 50 MG TAKE 1 TABLET BY MOUTH EVERY DAY for 90 Active Naproxen 500 MG TAKE 1 TABLET BY ELIAS TH EVERY DAY WITH FOOD OR MILK NEEDED FOR 90 DAYS for 90 Active Doxycycline Hyclate 100 MG 1 capsule Orally every 12 hrs for 1 dose 05/17/2017 Not-Taking CeleBREX 200 MG 1 capsule Orally Onc e a day for 30 day(s) 05/28/2016 Not-Taking predniSONE 10 MG 1 tablet with food o r milk Orally 4 tabs for 4 days, 3 tabs for 4 days, 2 tbs for 4 days, and 1 tab for 4 days for 14 days 02/22/2025 Active Multi For Him 50+ - as directed Orally Not-Taking Terbinafine HCl 250 MG 1 tablet Orally O nce a day for 90 days 03/14/2023 Not-Taking Vital Signs Height 66.25 in 02/22/2025 Weight 165 lbs 02/22/2025 BMI 26.43 kg/m2 02/22/2025 weight is down 2 pounds [facility] e 11-12-24 Encounters Encounter Location Date Provider Diagnosis Asim Kim MD [address] [place] [phone] 02/22/2025 Asim Kim Poison richy dermatitis L23.7 Assessments Encounter Date Diagnosis (ICD Code) Assessment Notes Treatment Notes Treatment Clinical Notes Section Notes 02/22/2025 Poison richy dermatitis (ICD-10 - L23.7) Plan Of Treatment Medication Medication Name Sig Start Date Stop Date Notes predniSONE 10 MG 1 tablet with food o r milk Orally 4 tabs for 4 days, 3 tabs for 4 days, 2 tbs for 4 days, and 1 tab for 4 days for 14 days 02/22/2025 Next Appt Details Provider Name:Asim leung, 10/07/2025 07:15:00 AM, [address] [place] [address], [address], [phone], Provider Name:Asim leung, 10/14/2025 09:30:00 AM, [address] [place] [address], [place] [address], [place], [place], [phone], Progress Notes * Tyshawn GRAHAM MDOB:11/1954 (70 yo M)Acc No.[id number]:02/22/2025 Progress Notes Patient: Leonard Tyshawn CAMARGO Provider: Maria Isabel Kim MD :1955 A ge:70 Y S ex:Male Date:02/22/2025 Address:[address] [place] [address] , [place], [phone] Subjective: * Chief Complaints: * P oison richy on his ankles x 1 week and armswent to Urgent Care in [place] was given a cream * HPI: S ymptom(s): patient is a 70 yo male here with complaint og poison richy on bilateral ank;le for one week. was seen at Urgent Care in [place] and given cream. * ROS: G eneral/Constitutional: Denies C hills. D enies F atigue. D enies F ever. D enies H eadache. E NT: Denies S ore throat. R espiratory: Denies C ough. D enies S hortness of breath at rest. D enies S hortness of breath with exertion. G astrointestinal: Denies D iarrhea. D enies N ausea. S kin: Patient complaining of c omplaining of rash getting worse in legs and now on arms. * Medical History: * Surgical History: * Hospitalization/Major Diagno stic Procedure: * Medications: T akingNaproxen 500 MG Tablet TAKE 1 TABLET BY MOUTH EVERY DAY WITH FOOD OR MILK NEEDED FOR 90 DAYS Metoprolol Succinate ER 50 MG Tablet Extended Release 24 Hour TAKE 1 TABLET BY MOUTH EVERY DAY Tamsulosin HCl 0.4 MG Capsule TAKE 1 CAPSULE BY MOUTH EVERY DAY DIRECTED 90 Atorvastatin Calcium 20 MG Tablet TAKE 1 TABLET BY MOUTH EVERY DAY FOR 90 DAYS Taking Naproxen 500 MG Tablet TAKE 1 TABLET BY MOUTH EVERY DAY WITH FOOD OR MILK NEEDED FOR 90 DAYS Taking Metoprolol Succinate ER 50 MG Tablet Extended Release 24 Hour TAKE 1 TABLET BY MOUTH EVERY DAY Taking Tamsulosin HCl 0.4 MG Capsule TAKE 1 CAPSULE BY MOUTH EVERY DAY DIRECTED 90 Taking Atorvastatin Calcium 20 MG Tablet TAKE 1 TABLET BY MOUTH EVERY DAY FOR 90 DAYS Not-Taking/PRNTerbinafine HCl 250 MG Tablet 1 tablet Orally Once a day Multi For Him 50+ - Tablet as directed Orally CeleBREX 200 MG Capsule 1 capsule Orally Once a day Doxycycline Hyclate 100 MG Capsule 1 capsule Orally every 12 hrs Not-Taking/PRN Terbinafine HCl 250 MG Tablet 1 tablet Orally Once a day Not-Taking/PRN Multi For Him 50+ - Tablet as directed Orally Not-Taking/PRN CeleBREX 200 MG Capsule 1 capsule Orally Once a day Not-Taking/PRN Doxycycline Hyclate 100 MG Capsule 1 capsule Orally every 12 hrs DiscontinuedDoxycycline Hyclate 100 MG Capsule 1 capsule Orally twice a day Discontinued Doxycycline Hyclate 100 MG Capsule 1 capsule Orally twice a day * Allergies: N .K.D.A.yes[Allergies Verified] Objective: * Vitals: H t: 66.25, Wt: 165, BMI:26.43, Wt-k.84. weight is down 2 pounds since 11-12-24. * Examination: G eneral Examination: GENERAL APPEARANCE: a lert, well hydrated, in no distress.? SKIN: a bnormal with rash over his lower legs and arms.? Assessment: * Assessment: 1. P oison richy dermatitis - L23.7 (Primary) Plan: * Treatment: * Procedure Codes: * * Sign off status: Completed true * Provider: Maria Isabel Kim MD Date: 0 02/22/2025 Generated for Mikaela reaves/Shailesh/eTransmitting on: 09/06/2024 01:22 PM EST History and Physical Notes * HPI (History of Present Illness) Category Sub-Category Detail Notes Category Not es Symptom(s) patient is a 70 yo male here with complaint og poison richy on bilateral ank;le for one week. was seen at Urgent Care in [place] and given cream Examination Category Sub-Category Detail Notes Category Not es General Examination GENERAL APPEARANCE: alert, w ell hydrated, in no distress SKIN: abnormal with rash o hans his lower legs and arms
--- OUTSIDE RECORDS SUMMARY | 2025-04-06 02:30 | XMS_ITS ---
Author Organization Asim Kim MD Address [address] [place] [phone] Care Team Providers Care Pump House Operator Name Role Phone Asim Kim Primary Care Provider Results Component Value Reference Range Notes Liver Panel Reviewed date:04/06/2025 06:15:29 PM Interpretation: Performing Lab:[facility], [address] [place] [phone] Notes/Report: Bilirubin Total 1.0 0.0-1.0 mg/dL Bilirubin Direct 0.4 0.0-0.5 mg/dL Aspartate Amino Transferase 33 5-37 U/L Alanine Aminotransferase 40 0-40 U/L Total Protein 6.5 6.5-8.0 g/dL Albumin Level 4.3 3.5-5.0 g/dL Alkaline Phosphatase 65 39-117 U/L Lipid Panel with Reflex Reviewed date:04/06/2025 06:15:41 PM Interpretation: Performing Lab:[facility], [address] [place] [address] Notes/Report: Triglycerides 60 <150 mg/dL Desirable Triglyceride: less than 150 mg/dL Borderline High Triglyceride 150-199 mg/dL High Triglyceride: 200-499 mg/dL Very High Triglyceride: greater than or equal to 5OO mg/dL Cholesterol 114 <200 mg/dL Desirable Cholesterol: less than 200 mg/dL Borderline High Cholesterol: 200-239 mg/dL High Cholesterol: greater than 239 mg/dL LDL Cholesterol Calculated 48 <100 mg/dL Desirable LDL: less than 100 mg/dL Near Optimal/Above Optimal LDL: 110-129 mg/dL Borderline High LDL: 130-159 mg/dL High LDL: 160-189 mg/dL Very High LDL: greater than or equal to 190 mg/dL HDL Cholesterol 54 >40 mg/dL Desirable HDL: greater than 40 mg/dL Note: This HDL assay may give artificially low results in patients with liver disease. REASON FOR VISIT fasting lipids Immunizations Vaccine Route Administration Date Status Comme nts Influenza High Dose IM Intramuscular 04/06/2025 Administer ed Encounters Encounter Location Date Provider Diagnosis Asim Kim MD [address] [place] [address] [place] [phone] 04/06/2025 Asim Kim High triglycerides E78.1 and Encounter for administration of vaccine Z23 Assessments Encounter Date Diagnosis (ICD Code) Assessment Notes Treatment Notes Treatment Clinical Notes Section Notes 04/06/2025 High triglycerides (ICD-10 - E78.1) 04/06/2025 Encounter for administration of vaccine (ICD-10 - Z23) Plan Of Treatment Next Appt Details Provider Name:Asim leung, 10/07/2025 07:15:00 AM, [address] [place] [address], [address] [place] [address], [phone], Provider Name:Asim leung, 10/14/2025 09:30:00 AM, [address] [place] [address], Suite [facility], [place], [place], [phone], Progress Notes * Tyshawn GRAHAM MDOB:11/1954 (70 yo M)Acc No.[id number]:04/06/2025 Progress Note Patient: Leonard Tyshawn CAMARGO Provider: Maria Isabel Kim MD :1955 A ge:70 Y S ex:Male Date:04/06/2025 Address:[address] [place] [address], [place], [phone] Subjective: * Chief Complaints: * 1 . Fasting lipids. * Medical History: Objective: * Vitals: Assessment: * Assessment: 1. E ncounter for administration of vaccine - Z23 (Primary) 2 . H igh triglycerides - E78.1 Plan: * Treatment: * Immunizations: Influenza High Dose : 0.5 mL (Dose No:1) (Route: Intramuscular) given by Cassandra Irizarry , Office Staff on Left Deltoid * Procedure Codes: 3 6415 VENIPUNCT, ROUTINE*, 75324 FLU VACC PRSV FREE INC ANTIG, G0008 ADMN FLU VAC NO FEE SCHED SAME DAY * * The named appointment provid er may or may not be the originator of this progress note, and it is not deemed complete until electronically signed by the appointment provider. Sign off status: Pending * Provider: Maria Isabel Kim MD Date: 0 04/06/2025 Generated for Mikaela reaves/Shailesh/Danisitting on: 1 09/06/2024 01:21 PM EST
--- OUTSIDE RECORDS SUMMARY | 2025-04-29 05:00 | XMS_ITS ---
Author Organization Asim Kim MD Address [address] [place] [phone] Care Team Providers Care Vector Control Specialist Name Role Phone Juloi Asim Primary Care Provider [phone] Allergies No Known Allergies Reason For Referral Reason high triglycerides Diagnosis 1 High triglycerides ( E78.1) Referral Organization Asim Kim MD Referring Provider First Name Asim Referring Provider Last Name Julio Referring Provider Speciality Internal M edicine Referred Provider Mayela Fischer Referred Provider Specialty Nutrition General Notes Darling Ba 1 01:08:35 PM > Mayela Fischer only see's patient with T2DM, DM or Obesity. Spoke with patient he will be looking for one on his own., no need for this referral Referral Priority Routine REASON FOR VISIT 6 month f/u, c/o left lower arm edema x 2 weeks Medications Medication SIG (Take, Route, Frequency, Duration) Notes Start Date End Date Status Terbinafine HCl 250 MG 1 tablet Orally O nce a day for 90 days 03/14/2023 Not-Taking Multi For Him 50+ - as directed Orally Not-Taking CeleBREX 200 MG 1 capsule Orally Onc e a day for 30 day(s) 05/28/2016 Not-Taking Doxycycline Hyclate 100 MG 1 capsule Orally every 12 hrs for 1 dose 05/17/2017 Not-Taking Tamsulosin HCl 0.4 MG 1 capsule Orally t wice a day for 90 days Active Atorvastatin Calcium 20 MG TAKE 1 TABLET BY MOUTH EVERY DAY FOR 90 DAYS for 90 Active Naproxen 500 MG TAKE 1 TABLET BY ELIAS TH EVERY DAY WITH FOOD OR MILK NEEDED FOR 90 DAYS for 90 Active Metoprolol Succinate ER 50 MG TAKE 1 TABLET BY MOUTH EVERY DAY for 90 Active Vital Signs Blood pressure systolic 118 mm Hg 04/29/20 25 Blood pressure diastolic 60 mm Hg 025 Height 66.25 in 04/29/2025 Weight 168 lbs 04/29/2025 BMI 26.91 kg/m2 04/29/2025 weight is up 3 pounds since 02-22-25 Encounters Encounter Location Date Provider Diagnosis Asim Kim MD [address] [place] [address] [address] [place], [place] [phone] 04/29/2025 Asim Kim Prostatism N40.0 ; High triglycerides E78.1 and Olecranon bursitis of left elbow M70.22 Assessments Encounter Date Diagnosis (ICD Code) Assessment Notes Treatment Notes Treatment Clinical Notes Section Notes 04/29/2025 Prostatism (ICD-10 - N40.0) increase tamzulosin to twice a day 04/29/2025 High triglycerides (ICD-10 - E78.1) wants a referral to call center specialist 04/29/2025 Olecranon bursitis of left elbow (ICD-10 - M70.22) aida try observation and try sanjana bndage Plan Of Treatment Medication Medication Name Sig Start Date Stop Date Notes Tamsulosin HCl 0.4 MG 1 capsule Orally t wice a day for 90 days Treatment Notes Assessment Notes Prostatism increase tamzulosin to twice a day High triglycerides wants a referral to call center specialist Olecranon bursitis of left elbow aida t ry observation and try sanjana bndage Referrals Referral Date Details 04/29/2025 04/29/2025, high tri glycerides, Mayela Fischer Next Appt Details Provider Name:Asim Clark ier, 10/07/2025 07:15:00 AM, [address], [address], [place], [phone], Provider Name:Asim Clark ier, 10/14/2025 09:30:00 AM, [address], [address], [place], [phone], Progress Notes * Tyshawn GRAHAM MDOB:11/1954 (70 yo M)Acc No.[id number]:04/29/2025 Progress Notes Patient: Leonard BRYANBENJAMINTyshawn HALL Provider: Maria Isabel Kim MD :1955 A ge:70 Y S ex:Male Date:04/29/2025 Address:[address] [place] [address], [facility], [id number] Subjective: * Chief Complaints: * 6 month f/uC/o left lower arm edema x 2 weeks * HPI: S ymptom(s): patient is a 70 yo male here for 6 month follow up visit/ initially sore in forearm and now his elbow is puffy/ having difficulty with frequent urination. * ROS: G eneral/Constitutional: Denies C hills. [...] Capsule 1 capsule Orally every 12 hrs DiscontinuedpredniSONE 10 MG Tablet 1 tablet with food or milk Orally 4 tabs for 4 days, 3 tabs for 4 days, 2 tbs for 4 days, and 1 tab for 4 days Medication List reviewed and reconciled with the patientDiscontinued predniSONE 10 MG Tablet 1 tablet with food or milk Orally 4 tabs for 4 days, 3 tabs for 4 days, 2 tbs for 4 days, and 1 tab for 4 days Medication List reviewed and reconciled with the patient * Allergies: N .K.D.A.yes[Allergies Verified] Objective: * Vitals: H t: 66.25, Wt: 168, BMI:26.91, BP:118/60, Wt-k.2. weight is up 3 pounds since 02-22-25. * P ast Orders: L ab:Liver Panel (Order Date - 04/06/2025) (Collection Date & Time - 04/06/2025 07:30 AM) Value Reference Range Bilirubin Total 1.0 0.0-1.0 - mg/dL Bilirubin Direct 0.4 0.0-0.5 - mg/dL Aspartate Amino Transferase 33 5-37 - U/L Alanine Aminotransferase 40 0-40 - U/L Total Protein 6.5 6.5-8.0 - g/dL Albumin Level 4.3 3.5-5.0 - g/dL Alkaline Phosphatase 65 39-117 - U/L L ab:Lipid Panel with Reflex (Order Date - 04/06/2025) (Collection Date & Time - 04/06/2025 07:30 AM) Value Reference Range Triglycerides 60 <150 - mg/dL Cholesterol 114 <200 - mg/dL LDL Cholesterol Calculated 48 <100 - mg/dL HDL Cholesterol 54 >40 - mg/dL * Examination: G eneral Examination: GENERAL APPEARANCE: a lert, well hydrated, in no distress.? HEAD: n ormocephalic. SKIN: g ood turgor. HEART: g rade 2/6 systolic murmur at left sternal border.? LUNGS: n o wheezes, rales, rhonchi, good air movement, clear to auscultation bilaterally. Assessment: * Assessment: 1. P rostatism - N40.0 (Primary) 2 . H igh triglycerides - E78.1 3 . O lecranon bursitis of left elbow - M70.22 Plan: * Treatment: 2. H igh triglycerides Notes: wants a referral to call center specialist Referral To:Mayela Fischer Nutrition Reason:high triglycerides 3. O lecranon bursitis of left elbow Notes: aida try observation and try sanjana bndage * Procedure Codes: * * Sign off status: Completed true * Provider: Maria Isabel Kim MD Date: Generated for Mikaela reaves/Shailesh/Jonathansmitting on: 09/06/2024 01:22 PM EST History and Physical Notes * HPI (History of Present Illness) Category Sub-Category Detail Notes Category Not es Symptom(s) patient is a 70 yo male here for 6 month follow up visit/ initially sore in forearm and now his elbow is puffy/ having difficulty with frequent urination Examination Category Sub-Category Detail Notes Category Not es General Examination GENERAL APPEARANCE: alert, w ell hydrated, in no distress HEAD: normocephalic HEART: grade 2/6 systolic m urmur at left sternal border LUNGS: no wheezes, rales, r honchi, good air movement, clear to auscultation bilaterally SKIN: good turgor Consultation Request Notes Referral Date Referring Provider Referred Provider Not es 04/29/2025 Asim Kim Zoraida high triglycerides
--- NOTE | ~2025-07-06 | XR_ITS ---
EXAMINATION: XR FOREARM 2 VIEWS LEFT, XR ELBOW 3 VIEWS LEFT HISTORY: PAIN COMPARISON: There are no prior studies available for comparison. FINDINGS: Three views of the elbow and AP and lateral views of the left forearm are submitted. Osseous mineralization is normal. There is no fracture or dislocation. The joint spaces are preserved. There is no joint effusion. There is soft tissue swelling over the proximal ulna. XR/XR elbow LT min 3V IMPRESSION: Soft tissue swelling over the proximal ulna. No osseous abnormality is identified. Electronically signed by: Armen Enciso MD 07/06/2025 12:39 PM [facility]
--- NOTE | ~2025-07-06 | XR_ITS ---
EXAMINATION: XR FOREARM 2 VIEWS LEFT, XR ELBOW 3 VIEWS LEFT HISTORY: PAIN COMPARISON: There are no prior studies available for comparison. FINDINGS: Three views of the elbow and AP and lateral views of the left forearm are submitted. Osseous mineralization is normal. There is no fracture or dislocation. The joint spaces are preserved. There is no joint effusion. There is soft tissue swelling over the proximal ulna. XR/XR forearm LT 2V IMPRESSION: Soft tissue swelling over the proximal ulna. No osseous abnormality is identified. Electronically signed by: Armen Enciso MD 07/06/2025 12:39 PM [facility]
--- OUTSIDE RECORDS SUMMARY | 2025-07-06 06:45 | XMS_ITS ---
Author Organization Asim Kim MD Address [address] [place] [id number] Care Team Providers Care Optical Glass Wet Inspector Name Role Phone Asim Kim Primary Care Provider [phone] Allergies No Known Allergies Results Component Value Reference Range Notes XR forearm LT 2V (Not yet re viewed by provider) Interpretation: Performing Lab: Notes/Report: [address] [address] XRay Report Signed Patient: Tyshawn Graham MR#: [id number] : 1955 Acct:[id number] Age/Sex: 70 / M ADM Date: 07/06/25 Loc: HO.XRAY Attending Dr: Asmi Kim MD Ordering Physician: Asim Kim MD Date of Service: 07/06/25 Procedure(s): XR forearm LT 2V Accession Number(s): [id number] cc: Asim Kim MD Reason for Exam: PAIN EXAMINATION: XR FOREARM 2 VIEWS LEFT, XR ELBOW 3 VIEWS LEFT HISTORY: PAIN COMPARISON: There are no prior studies available for comparison. FINDINGS: Three views of the elbow and AP and lateral views of the left forearm are submitted. Osseous mineralization is normal. There is no fracture or dislocation. The joint spaces are preserved. There is no joint effusion. There is soft tissue swelling over the proximal ulna. XR/XR forearm LT 2V IMPRESSION: Soft tissue swelling over the proximal ulna. No osseous abnormality is identified. Electronically signed by: Armen Enciso MD 07/06/2025 12:39 PM EST RP Dictated By: Armen Enciso MD Signed By: <Electronically signed by Armen Enciso MD in OV> 07/06/25 1239 DD/ 1219 TD/TT: 07/06/25 1232 Bone Char Operator: [place] [id number] XRay Report Signed Patient: Tyshawn Graham MR#: [id number] : 1955 Acct:[id number] Age/Sex: 70 / M ADM Date: 07/06/25 Loc: HO.JELENA Attending Dr: Asim Kim MD Ordering Physician: Asim Kim MD Date of Service: 07/06/25 Procedure(s): XR forearm LT 2V Accession Number(s): [id number] cc: Asim Kim MD Reason for Exam: PAIN EXAMINATION: XR FORE ARM 2 VIEWS LEFT, XR ELBOW 3 VIEWS LEFT HISTORY: PAIN COMPARISON: There ar e no prior studies available for comparison. FINDINGS: Three views of the e lbow and AP and lateral views of the left forearm are submitted. [place] us mineralization is normal. There is no fracture or dislocation. The joint spaces are preserved. There is no joint effusion. There is s oft tissue swelling over the proximal ulna. X R/XR forearm LT 2V IMPRESSION: Soft tissue swelling over the proximal ulna. No osseous abnormality is identified. Electronically jaqueline d by: Armen Enciso MD 07/06/2025 12:39 PM EST RP Dictated By: Armen Enciso MD Signed By: <Electro nically signed by Armen Enciso MD in OV> 07/06/25 1239 DD/ 1219 TD/TT: 07/06/25 1232 Bone Char Operator: REASON FOR VISIT patient fell hurt left elbow ( didn't hurt head ) Medications Medication SIG (Take, Route, Frequency, Duration) Notes Start Date End Date Status Atorvastatin Calcium 20 MG TAKE 1 TABLET BY MOUTH EVERY DAY FOR 90 DAYS for 90 Active Tamsulosin HCl 0.4 MG 1 capsule Orally t wice a day for 90 days Active Multi For Him 50+ - as directed Orally Not-Taking CeleBREX 200 MG 1 capsule Orally Onc e a day for 30 day(s) 05/28/2016 Not-Taking Terbinafine HCl 250 MG 1 tablet Orally O nce a day for 90 days 03/14/2023 Not-Taking Naproxen 500 MG TAKE 1 TABLET BY ELIAS TH EVERY DAY WITH FOOD OR MILK NEEDED FOR 90 DAYS for 90 Active Metoprolol Succinate ER 50 MG TAKE 1 TABLET BY MOUTH EVERY DAY for 90 Active Doxycycline Hyclate 100 MG 1 capsule Orally every 12 hrs for 1 dose 05/17/2017 Not-Taking Vital Signs Blood pressure systolic 160 mm Hg 07/06/20 25 Blood pressure diastolic 80 mm Hg 025 Height 66.25 in 07/06/2025 Weight 175 lbs 07/06/2025 BMI 28.03 kg/m2 07/06/2025 weight is up 7 pounds since 04-29-25 Encounters Encounter Location Date Provider Diagnosis Asim Kim MD [address] [place] [address] [place] [phone] 07/06/2025 Asim Kim Arm pain, left M79.602 Assessments Encounter Date Diagnosis (ICD Code) Assessment Notes Treatment Notes Treatment Clinical Notes Section Notes 07/06/2025 Arm pain, left (ICD-10 - M79.602) orders given to patient Plan Of Treatment Treatment Notes Assessment Notes Arm pain, left orders given to latonya ent Pending Test Test Name Order Date XR elbow LT 2V 07/06/2025 XR forearm LT 2V 07/06/2025 Next Appt Details Provider Name:Asim leung, 10/07/2025 07:15:00 AM, [address], [address], [place], [place], [phone], Provider Name:Asim Clark ier, 10/14/2025 09:30:00 AM, [address], [address], [place], [phone], Progress Notes * Tyshawn GRAHAM MDOB:11/1954 (70 yo M)Acc No.[id number]:07/06/2025 Progress Notes Patient: Tyshawn BURT Provider: Maria Isabel Kim MD :1955 A ge:70 Y S ex:Male Date:07/06/2025 Address:[address] [place] [address], [facility] [place], [id number] Subjective: * Chief Complaints: * 1 . Patient fell hurt left elbow ( didn't hurt head ). * HPI: F all Risk: patient is a 70 yomale here qith complaint he fell on arm this morning and arm is swollen. History H ave you had any falls with injury in the past year? Y es fell slipped on the ice this AM landed on left elbow. * ROS: G eneral/Constitutional: Denies C hills. D enies F atigue. D enies F ever. D enies H eadache. E NT: Denies S ore throat. R espiratory: Denies C ough. D enies S hortness of breath at rest. D enies S hortness of breath with exertion. G astrointestinal: Denies D iarrhea. D enies N ausea. * Medical History: c olonoscopy [address]. [address] Lomas repeat in 10 years(2020); Colonoscopy 08/31/21 due in 5 yrs, Upper endoscopy in 3 years. * Medications: T aking Naproxen 500 MG Tablet TAKE 1 TABLET BY MOUTH EVERY DAY WITH FOOD OR MILK NEEDED FOR 90 DAYS , Taking Metoprolol Succinate ER 50 MG Tablet Extended Release 24 Hour TAKE 1 TABLET BY MOUTH EVERY DAY , Taking Atorvastatin Calcium 20 MG Tablet TAKE 1 TABLET BY MOUTH EVERY DAY FOR 90 DAYS , Taking Tamsulosin HCl 0.4 MG Capsule 1 capsule Orally twice a day , Not-Taking/PRN Terbinafine HCl 250 MG Tablet 1 tablet Orally Once a day , Not-Taking/PRN Multi For Him 50+ - Tablet as directed Orally , Not-Taking/PRN CeleBREX 200 MG Capsule 1 capsule Orally Once a day , Not- Taking/PRN Doxycycline Hyclate 100 MG Capsule 1 capsule Orally every 12 hrs , Medication List reviewed and reconciled with the patient * Allergies: N .K.D.A. Objective: * Vitals: H t: 66.25, Wt: 175, BMI:28.03, BP:160/80, Wt-k.38. weight is up 7 pounds since 04-29-25. * Examination: G eneral Examination: GENERAL APPEARANCE: p leasant, in no acute distress. EXTREMITIES: l eft arm is swollen in the area of his elbow. tender there but bones are not tender and normal range of motion. Assessment: * Assessment: 1. A rm pain, left - M79.602 (Primary) Plan: * Treatment: * * The named appointment provid er may or may not be the originator of this progress note, and it is not deemed complete until electronically signed by the appointment provider. Sign off status: Pending * Provider: Maria Isabel Kim MD Date: 09/06/2024 Generated for Mikaela reaves/Shailesh/Danisitting on: 09/06/2024 01:21 PM EST History and Physical Notes * HPI (History of Present Illness) Category Sub-Category Detail Notes Category Not es Fall Risk History Have you had any falls with injury in the past year?: Yes fell slipped on the ice this AM landed on left elbow Examination Category Sub-Category Detail Notes Category Not es General Examination GENERAL APPEARANCE: pleasant, in n o acute distress EXTREMITIES: left arm is swollen in the area of his elbow. tender there but bones are not tender and normal range of motion
--- OUTSIDE RECORDS SUMMARY | 2025-07-06 13:22 | XMS_ITS | Clinical Summary ---
Author Organization [facility] ity Address [address] [place] [address] Care Team Providers Care Pattern Data Operator Name Role Phone Unavailable Primary Care [...] Depression Screening 07/15/2024 COVID-19 Vaccine (1 - 2024-2 6 season) 2025 Influenza Vaccine (#1) 2025 RSV [...]
--- OUTSIDE RECORDS SUMMARY | 2025-07-06 13:22 | XMS_ITS | Patient Health Record ---
Author Organization [facility] Address [address] [facility] [place] [id number] Care Team Providers Care Management Assistant Name Role Phone Asim Kim MD Primary Care Provider Shanda Calderon Unavailable [phone] Reason For Referral No Information Medications Medication [...] primary osteoarthritis of the ankle and/or foot ([id number]) Primary osteoarthrit is, right ankle and foot (M19.071) Active confirmed Plan Of Treatment Pending Test Test Name Order Date X ray : Foot, right 3V 04/28/2019 X ray : Foot, right 3V 07/07/2019 Insurance Providers Payer Name Payer Address Payer Phone Subscriber Number Group Number Insured Name Patient Relationship to Insured Coverage Start Date Coverage End Date Carlos Oneill [facility] [address] [place] [address] [id number] Tyshawn Galvez lt Self - patient is the insured Medical (General) History Medical History History ICD Code Headaches/Migraines High blood pressure Surgical History Surgery Date(Month/Year) appendectomy Decompressional Osteotomy R w/faith as nis 07/02/2019
--- OUTSIDE RECORDS SUMMARY | 2025-07-06 13:23 | XMS_ITS | Clinical Summary ---
Author Organization [facility] Address [address] [place] [phone] Phone Care Team Providers Care Sales Manager Prearranged Funerals Name Role Phone Asim Kim MD Primary [...] Insurance [place] [id number] [facility] MEDEX SUPPLEMENT MEDICARE PART A & B [email or web address] MEDEX SUPPLEMENT MEDICARE PART A & B [email or web address] MEDEX SUPPLEMENT MEDICARE PART A & B Member Subscriber Plan / Payer ( fective 2022-) Name:Tyshawn Langford Member ID:[id number] Relation to Subscriber:Self Name:Tyshawn Langford Subscriber ID:[id number] Payer ID:[id number] Group ID:Not on file Type:Medicare Address: [facility].[address] [address] [facility] MEDEX SUPPLEMENT MEDICARE PART A & B [email or web address] MEDEX SUPPLEMENT MEDICARE PART A & B [email or web address] MEDEX SUPPLEMENT [employer] Care Teams Sales Manager Prearranged Funerals Relationship Specialty Start Date End Date Asim Kim MD [address] [place] [address] [place] [address] PCP - General 07/18/17 Additional Source Comments The information contained in this document represents components of the legal health record. It is not the complete legal health record.[facility]
--- OUTSIDE RECORDS SUMMARY | 2025-07-06 13:23 | XMS_ITS | Patient Health Record ---
Author Organization Asim Kim MD Address [address] [place] [phone] Care Team Providers Care Tearoom Host/Hostess Name Role Phone Asim Kim Primary Care Provider [phone] Allergies No Known Allergies Results Component Value Reference Range Notes Complete Blood Count Auto Di ff Reviewed date:10/05/2024 05:14:43 PM Interpretation: Performing Lab:[facility], [address] [place] [phone] Notes/Report: White Blood Count 4.5 4.8-10.8 X10*3/uL [...] NRBC Abs Auto 0.000 0.0-0.012 X10*3/uL Comprehensive [place]. Panel Fa st Reviewed date:10/05/2024 12:33:28 PM Interpretation: Performing Lab:[facility], [address] [place] [phone] Notes/Report: Sodium 140 135-145 mmol/L Potassium 4.0 [...] Panel Reviewed date:10/05/2024 12:34:41 PM Interpretation: Performing Lab:[facility], [address] [place] [phone] Notes/Report: Triglycerides 179 <150 mg/dL Desirable Triglyceride: [...] (Free>4and<10) Reviewed date:10/05/2024 12:33:59 PM Interpretation: Performing Lab:[facility], [address] [place] [phone] Notes/Report: PSA,Total (Free>4and<10) 1.16 0.00-4.00 ng/mL A [...] Random Reviewed date:10/05/2024 12:34:54 PM Interpretation: Performing Lab:[facility], [address] [place] [phone] Notes/Report: Creatinine Urine 115.06 Microalbumin Urine 5.0 Microalbum/Creatinine Ratio Ur 4.3 <30 ug/mg cr Albumin/Creatinine Ratio Reference Ranges: Normal: < 30 ug/mg creatinine Microalbuminuria: 30 - 300 ug/mg creatinine Clinical Albuminuria: > 300 ug/mg creatinine Hemoglobin A1c Reviewed date:10/05/2024 12:33:52 PM Interpretation: Performing Lab:[facility], [address] [place] [phone] Notes/Report: Hemoglobin A1c % 5.2 <6.0 % [...] average glucose, using the formula of the S6O-Bsedfnt Average Glucose study (ADAG), Diabetes Care, Vol.31,#8, Feb. 2007 UA ClnCatch+Micro w/rflx Cul t Reviewed date:10/05/2024 12:45:01 PM Interpretation: Performing Lab:[address] [phone] Notes/Report: Urine, Clean Catch Color Urine Yellow Appearance Urine Clear PH 5.5 5.0-9.0 Glucose Urine UA Negative Negative mg/dL Urine Blood Negative Negative Specific [place] - Urine 1.020 1.005-1.025 Urine Protein Negative Neg-Trace mg/dL Urine Ketones Negative Negative mg/dL Nitrite Urine Negative Negative Leukocyte Esterase Urine Negative Negative RBC Urine 0-2 0-2 /HPF WBC Urine 0-5 0-5 /HPF Squamous Epithelial Cell Urine 0-2 0-2 /HPF Bacteria Urine None Seen None Seen Hyaline Casts Urine 0-2 0-2 /LPF Liver Panel Reviewed date:04/06/2025 06:15:29 PM Interpretation: Performing Lab:[address] [phone] Notes/Report: Bilirubin Total 1.0 0.0-1.0 mg/dL Bilirubin Direct 0.4 0.0-0.5 mg/dL Aspartate Amino Transferase 33 5-37 U/L Alanine Aminotransferase 40 0-40 U/L Total Protein 6.5 6.5-8.0 g/dL Albumin Level 4.3 3.5-5.0 g/dL Alkaline Phosphatase 65 39-117 U/L Lipid Panel with Reflex Reviewed date:04/06/2025 06:15:41 PM Interpretation: Performing Lab:[facility], [address] [place] [phone] Notes/Report: Triglycerides 60 <150 mg/dL Desirable Triglyceride: [...] low results in patients with liver disease. XR forearm LT 2V (Not yet re viewed by provider) Interpretation: Performing Lab: Notes/Report: [address] [address] XRay Report Signed Patient: Tyshawn Langford MR#: [id number] : 1955 Acct:[id number] Age/Sex: 70 / M ADM Date: 07/06/25 Loc: [facility] Attending Dr: Asim Kim MD Ordering Physician: Asim Kim MD Date of Service: 07/06/25 Procedure(s): XR forearm LT 2V Accession Number(s): [id number] cc: Asim Kim MD Reason for Exam: [...] 07/06/25 1239 DD/ 1219 TD/TT: 07/06/25 1232 Toll Gate Keeper: [address] [address] XRay Report Signed Patient: Tyshawn Langford MR#: [id number] : 1955 Acct:[id number] Age/Sex: 70 / M ADM Date: 07/06/25 Loc: HO.XRAY Attending Dr: Asim Kim MD Ordering Physician: Asim Kim MD Date of Service: 07/06/25 Procedure(s): XR forearm LT 2V Accession Number(s): [id number] cc: Asim Kim MD Reason for Exam: PAIN EXAMINATION: XR FOREARM 2 VIEWS LEFT, XR ELBOW 3 VIEWS LEFT HISTORY: PAIN COMPARISON: There ar e no prior studies available for comparison. FINDINGS: Three views of the elbow and AP and lateral views of the left forearm are submitted. Ennis us mineralization is normal. There is no fracture or dislocation. The joint spaces are preserved. There is no joint effusion. There is s oft tissue swelling over the proximal ulna. XR/XR forearm LT 2V IMPRESSION: Soft tissue swelling over the proximal ulna. No osseous abnormality is identified. Electronically jaqueline d by: Armen Enciso MD 07/06/2025 12:39 PM EST RP Dictated By: Armen Enciso MD Signed By: <Electronically signed by Armen Enciso MD in OV> 07/06/25 1239 DD/ 1219 TD/TT: 07/06/25 1232 Toll Gate Keeper: Occult Blood, Stool, Guaiac Reviewed date:10/12/2024 10:42:46 AM Interpretation:Negative Performing Lab: Notes/Report: Negative Occult Blood, Stool, Guaiac Neg US carotid duplex BI Reviewed date:11/12/2024 12:14:44 PM Interpretation:CBACK 5 Performing Lab: Notes/Report: [address] [address] Ultrasound Report Signed Patient: Tyshawn Langford MR#: [id number] : 1955 Acct:[id number] Age/Sex: 69 / M ADM Date: 11/05/24 Loc: . Attending Dr: Asim Kim MD Ordering Physician: Asim Kim MD Date of Service: 11/05/24 Procedure(s): US carotid duplex BI Accession Number(s): [id number] cc: Asim Kim MD EXAMINATION: BILATERAL CAROTID [...] 11/06/24 1345 DD/ 1400 TD/TT: 11/05/24 1409 Toll Gate Keeper: [address] [address] Ultrasound Report Signed Patient: Tyshawn Langford MR#: [id number] : 1955 Acct:[id number] Age/Sex: 69 / M ADM Date: 11/05/24 Loc: .US Attending Dr: Asim Kim MD Ordering Physician: Asim Kim MD Date of Service: 11/05/24 Procedure(s): US carotid duplex BI Accession Number(s): [id number] cc: Asim Kim MD EXAMINATION: BILATER AL [...] 11/06/24 1345 DD/ 1400 TD/TT: 11/05/24 1409 Toll Gate Keeper: Laith Parks Reviewed date:04/06/2025 12:26:11 PM Interpretation: Performing Lab:[facility], [address] [place] [phone] Notes/Report: Laith Parks See Note Specimen held untested for 24 hours; Call to request Chemistry testing. US carotid duplex BI Reviewed date:05/24/2025 04:50:20 PM Interpretation: Performing Lab: Notes/Report: [address] [address] Ultrasound Report Signed Patient: Tyshawn Langford MR#: [id number] : 1955 Acct:[id number] Age/Sex: 70 / M ADM Date: 05/24/25 Loc: HO.US Attending Dr: Jackson Mitchell MD Ordering Physician: Jackson Mitchell MD Date of Service: 05/24/25 Procedure(s): US carotid duplex BI Accession Number(s): [id number] cc: Asim Kim MD; Jackson Mitchell MD Reason for Exam: I65.23 - Occlusion and stenosis of bilateral carotid arteries EXAMINATION: US EXTRACRANIAL CAROTID DUPLEX, BILATERAL CLINICAL INFORMATION: Hypertension, former tobacco use. COMPARISON: 11/05/2024 TECHNIQUE: Real-time ultrasound and Doppler techniques (integrating B-mode 2-D vascular images, Doppler spectral analysis and color-flow Doppler imaging) were utilized to interrogate the extracranial carotid arteries, the vertebral arteries and proximal subclavian arteries bilaterally. The degree of stenosis is determined by criteria similar to NASCET. FINDINGS: Right Side: 1. There is mild atherosclerotic plaque seen in the bifurcation/proximal ICA region. 2. The common carotid artery PSV proximally is 90 cm/s and distally 78 cm/s. 3. The proximal internal carotid artery velocities are 67 cm/s systolic and 19 cm/s diastolic. 4. The proximal external carotid artery PSV is 139 cm/s. 5. The vertebral artery shows antegrade flow. 6. The subclavian artery waveforms are triphasic. ICA/CCA ratio 0.7 Left Side: 1. There is mild atherosclerotic plaque seen in the bifurcation/proximal ICA region. 2. The common carotid artery PSV proximally is 80 cm/s and distally 68 cm/s. 3. The proximal internal carotid artery velocities are 161 cm/s systolic and 53 cm/s diastolic. 4. The proximal external carotid artery PSV is 99 cm/s. 5. The vertebral artery shows antegrade flow. 6. The subclavian artery waveforms are triphasic. ICA/CCA ratio 2.0 US/US carotid duplex BI IMPRESSION: 1. RIGHT: No hemodynamically significant stenosis 2. LEFT: Suspected hemodynamically significant stenosis 50-79%. 3. There is no change in the category severity of disease when compared to the previous study. Electronically signed by: Evan Posadas MD 05/24/2025 01:07 PM [facility] Dictated By: Evan Posadas MD Signed By: <Electronically signed by Evan Posadas MD in OV> 05/24/25 1307 DD/ 1016 TD/TT: 05/24/25 1036 Toll Gate Keeper: [place] [address] Ultrasound Report Signed Patient: Tyshawn Langford MR#: [id number] : 1955 Acct:[id number] Age/Sex: 70 / M ADM Date: 05/24/25 Loc: . Attending Dr: Jackson Mitchell MD Ordering Physician: Jackson Mitchell MD Date of Service: 05/24/25 Procedure(s): US carotid duplex BI Accession Number(s): [id number] cc: Asim Kim MD; Jackson Mitchell MD Reason for Exam: I65 .23 - Occlusion and stenosis of bilateral carotid arteries EXAMINATION: US EXTRACRANIAL CHANG TID DUPLEX, BILATERAL CLINICAL INFORMATION: Hypertension, former tobacco use. COMPARISON: 11/05/2024 TECHNIQUE: Real-time ultrasound and Doppler techniques (integrating B-mode 2-D vascular images, Doppler spectral analysis and color-flow Doppler imaging) were utilized to interrog ate the extracranial carotid arteries, the vertebral arteries a nd proximal subclavian arteries bilaterally. The degree of stenosis i s determined by criteria similar to NASCET. FINDINGS: Right Side: 1. There is mild atherosclerotic plaque seen in the bifurcation/proximal ICA region. 2. The common caroti d artery PSV proximally is 90 cm/s and distally 78 cm/s. 3. The proximal internal carotid artery velocities are 67 cm/s systolic and 19 cm/s diastolic. 4. The proximal external carotid artery PSV is 139 cm/s. 5. The vertebral art marco shows antegrade flow. 6. The subclavian artery waveforms are triphasic. ICA/CCA ratio 0.7 Left Side: 1. There is mild atherosclerotic plaque seen in the bifurcation/proximal ICA region. 2. The common caroti d artery PSV proximally is 80 cm/s and distally 68 cm/s. 3. The proximal internal carotid artery velocities are 161 cm/s systolic and 53 cm/s diastolic. 4. The proximal external carotid artery PSV is 99 cm/s. 5. The vertebral art marco shows antegrade flow. 6. The subclavian artery waveforms are triphasic. ICA/CCA ratio 2.0 US/US carotid duplex BI IMPRESSION: 1. RIGHT: No hemodynamically significant stenosis 2. LEFT: Suspected hemodynamically significant stenosis 50-79%. 3. There is no paulson e in the category severity of disease when compared to the previous study. Electronically jaqueline d by: Evan Posadas MD 05/24/2025 01:07 PM [facility] Dictated By: vEan Posadas MD Signed By: <Electronically signed by Evan Posadas MD in OV> 05/24/25 1307 DD/ 1016 TD/TT: 05/24/25 1036 Toll Gate Keeper: RANDAL abdul LT min 3V Reviewed date:07/06/2025 12:53:16 PM Interpretation: Performing Lab: Notes/Report: [address] [address] Tommy Report Signed Patient: Tyshawn Langford MR#: [id number] : 1955 Acct:[id number] Age/Sex: 70 / M ADM Date: 07/06/25 Loc: [facility] Attending Dr: Asim Kim MD Ordering Physician: Asim Kim MD Date of Service: 07/06/25 Procedure(s): XR elbow LT min 3V Accession Number(s): [id number] cc: Asim Kim MD Reason for Exam: [...] tissue swelling over the proximal ulna. XR/XR elbow LT min 3V IMPRESSION: Soft tissue swelling over the proximal ulna. No osseous abnormality is identified. Electronically signed by: Armen Enciso MD 07/06/2025 12:39 PM [facility] Dictated By: Armen Enciso MD Signed By: <Electronically signed by Armen Enciso MD in OV> 07/06/25 1239 DD/ 1229 TD/TT: 07/06/25 1232 Toll Gate Keeper: [address] [address] XRay Report Signed Patient: Tyshawn Langford MR#: [id number] : 1955 Acct:[id number] Age/Sex: 70 / M ADM Date: 07/06/25 Loc: .XRAY Attending Dr: Asim Kim MD Ordering Physician: Asim Kim MD Date of Service: 07/06/25 Procedure(s): XR elb ow LT min 3V Accession Number(s): [id number] cc: Asim Kim MD Reason for Exam: PAIN EXAMINATION: XR FORE ARM 2 VIEWS LEFT, XR ELBOW 3 VIEWS LEFT HISTORY: PAIN COMPARISON: There ar e no prior studies available for comparison. FINDINGS: Three views of the elbow and AP and lateral views of the left forearm are submitted. Ennis us mineralization is normal. There is no fracture or dislocation. The joint spaces are preserved. There is no joint effusion. There is s oft tissue swelling over the proximal ulna. XR/XR elbow LT min 3V IMPRESSION: Soft tissue swelling over the proximal ulna. No osseous abnormality is identified. Electronically jaqueline d by: Armen Enciso MD 07/06/2025 12:39 PM [facility] Dictated By: Armen Enciso MD Signed By: <Electronically signed by Armen Enciso MD in OV> 07/06/25 1239 DD/ 1229 TD/TT: 07/06/25 1232 Toll Gate Keeper: Reason For Referral Reason Carotid artery disea se Diagnosis 1 Carotid artery disea se (I77.9) Referral Organization Asim Kim MD Referring Provider First Name Asim Referring Provider Last Name Julio Referring Provider Speciality Internal M edicine Referred Provider JACKSON MITCHELL Referred Provider Specialty Vascular [place] [facility] Notes Darling Ba 0 11/13/2024 01:52:35 PM > referral info faxed, Darling Ba 11/20/2024 11:10:19 AM >left message regarding referral and mailed Referral Priority Routine Referral Appointment Date 11/26/2024 Reason high triglycerides Diagnosis 1 High triglycerides [...] need for this referral Referral Priority Routine Medications Medication SIG (Take, Route, Frequency, Duration) Notes Start Date End Date Status Atorvastatin Calcium 20 MG TAKE 1 TABLET BY MOUTH EVERY DAY FOR 90 DAYS for 90 Active Tamsulosin HCl 0.4 MG 1 capsule Orally t wice a day for 90 days Active Naproxen 500 MG TAKE 1 TABLET [...] a day for 90 days 03/14/2023 Not-Taking Immunizations Vaccine Route Administration Date Status Comme [...] Problem Status W/U Status Risk Notes Problem 520499461 Thrombocytopenia (D69.6) Active confirmed Problem 53266113 Hemoptysis (R04.2) Active confirmed Problem 11717301 Prostatism (N40.0) Active confirmed Problem Carotid artery disease (864644011) Carotid artery disease (I77.9) Active confirmed Problem 953671905 Diverticulitis (K57.92) Active confirmed Problem 61711979 Precordial pain (R07.2) Active confirmed Problem 51674165 Essential hypertension (I10) Active confirmed Problem 05685811 Labile hypertens ion (I10) Active confirmed Problem 19987370 Skin lesion (L98.9) Active confirmed Problem 569702835 High triglycerid es (E78.1) Active confirmed Problem 327219633 Mild aortic sten osis (I35.0) Active confirmed Problem 253411429 Neutropenia, unspecified type (D70.9) Active confirmed Problem 410380072 Prediabetes (R73.03) Active confirmed Problem 58431849 Aortic atherosclerosis (I70.0) Active confirmed Problem 792097080 Mild mitral regurgitation (I34.0) Active confirmed Problem 2228716781 Fatty liver dise ase, nonalcoholic (K76.0) Active confirmed Vital Signs Blood pressure diastolic 80 mm Hg 07/06/2025 rhonda ght is up 7 pounds since 04-29-25 Height 66.25 in 07/06/2025 weight is up 7 pounds since 04-29-25 Blood pressure systolic 160 mm Hg 07/06/2025 weig ht is up 7 pounds since 04-29-25 Weight 175 lbs 07/06/2025 weight is up 7 pounds since 04-29-25 BMI 28.03 kg/m2 07/06/2025 weight is up 7 pounds since 04-29-25 Encounters Encounter Location Date Provider Diagnosis Asim Kim MD [address] [place] [id number] 10/05/2024 Asim Kim Prostatism N40.0 ; Labile hypertension I10 and Prediabetes R73.03 Asim Kim MD [address] [place] [id number] 04/06/2025 Asim Kim High triglycerides E78.1 and Encounter for administration of vaccine Z23 Asim Kim MD [address] [place] [address] Drive [address] [place] [address] [id number] 07/06/2025 Asim Kim Arm pain, left M79.6 02 Asim Kim MD [address] [place] [address] [id number] 10/12/2024 Asim Kim Thrombocytopenia D69 .6 ; Mild aortic stenosis I35.0 ; Carotid bruit, unspecified laterality R09.89 ; Labile hypertension I10 ; Prostatism N40.0 ; High triglycerides E78.1 ; Colon cancer screening Z12.11 and Depression screening Z13.31 Asim Kim MD [address] [place] [id number] 11/12/2024 Asim Kim Carotid artery disea se I77.9 Asim Kim MD [address] [place] [address] [id number] 02/22/2025 Asim Kim Poison richy dermatiti s L23.7 Asim Kim MD [address] [place] [address] [id number] 04/29/2025 Asim Kim Prostatism N40.0 ; H igh triglycerides E78.1 and Olecranon bursitis of left elbow M70.22 Asim Kim MD [address] [place] [address] [id number] 11/24/2024 Asim Kim Assessments Encounter Date Diagnosis (ICD Code) Assessment Notes Treatment Notes Treatment Clinical Notes Section Notes 10/05/2024 Prostatism (ICD-10 - N40.0) 04/06/2025 High triglycerides (ICD-10 - E78.1) 04/06/2025 Encounter for administration of vaccine (ICD-10 - Z23) 07/06/2025 Arm pain, left (ICD-10 - M79.602) orders given to patient 10/12/2024 Thrombocytopenia (ICD-10 - D69.6) stable, will continue to monitor 10/12/2024 Mild aortic stenosis (ICD-10 - I35.0) repeat echo in 2 years/ order entered in system printed and put in future folder 11/12/2024 Carotid artery disease (ICD-10 - I77.9) discussed findings of recent US with patient, referral to dr mitchell. 02/22/2025 Poison richy dermatitis (ICD-10 - L23.7) 04/29/2025 Prostatism (ICD-10 - N40.0) increase tamzulosin to twice a day 04/29/2025 High triglycerides (ICD-10 - E78.1) wants a referral to [facility] 10/05/2024 Labile hypertension (ICD-10 - I10) 10/12/2024 Carotid bruit, unspecified laterality (ICD-10 - R09.89) pending diagnostic testing/ order faxed to [facility] CS dept 04/29/2025 Olecranon bursitis of left elbow (ICD-10 - M70.22) aida try observation and try sanjana bndage 10/05/2024 Prediabetes (ICD-10 - R73.03) 10/12/2024 Labile hypertension (ICD-10 - I10) stable, [...] DOPPLER 10/12/2024 CA echo transthoracic complete 3 XR elbow LT 2V 07/06/2025 XR forearm LT 2V 07/06/2025 Next Appt Details Provider Name:Asim Clark ier, 10/07/2025 07:15:00 AM, [address] [place] [address], [address], [place], [phone], Provider Name:Asim Clark ier, 10/14/2025 09:30:00 AM, [address] [place] [address], [address], [place], [place], [id number], Insurance Providers Payer Name Payer Address Payer Phone Subscriber Number Group Number Insured Name Patient Relationship to Insured Coverage Start Date Coverage End Date [employer] [address] [place] [address] [id number] Tyshawn Pino Self - patient is the insured MEDEX BC OF [facility] [id number] [place] [phone] [id number] Tyshawn Pino Self - patient is the insured Medical (General) History Medical History History ICD Code colonoscopy 2010. negative b y Dr Lomas repeat in 10 years(2020); Colonoscopy 08/31/21 due in 5 yrs upper endoscopy in 3 years Surgical History Surgery Date(Month/Year) EGD by Dr. Alysia Lomas 09/2016 Rt Foot Cheilectomy, 1st Metatarsophalan geal Joint 06/2019
== END 2025-07-06 12:11 | disposition home or self-care (01) ==
LOC: HO.XRAY 12:10
PROVIDERS: PCP Internal Medicine; Visit Provider Internal Medicine
DX: M79.602 Pain in left arm (principal)
CPT/HCPCS: 73080; 73090

== ENCOUNTER → 2025-07-06 12:15 | Outpatient (BNV) | payer MEDICARE, SELFPAY | PROVIDERS: PCP Internal Medicine; Visit Provider Radiology Diagnostic Radiology | DX: M79.89 Other specified soft tissue disorders (principal) | CPT/HCPCS: 73080; 73090 ==